=== PATIENT | male | born 1970 | race African-American/Black ===

== ENCOUNTER 2016-10-06 18:14 | Inpatient (IN) | payer MEDICAID ==
[~2016-10-06] VITALS: Ht 170.2 cm; Wt 78.0 kg
[~2016-10-06 18:14] MED LIST: ASPI-1158 PO; ATOR20TA PO; CLON1PAT8 TD; HYDR-4135 PO; NIFE60TA8 PO
[2016-10-06 18:39] LABS: BASOPHILS % 0.9 % (0.0-2.0); EOSINOPHILS % 2.6 % (0.0-5.0); HEMATOCRIT. 30.1 % (42.0-52.0); HEMOGLOBIN. 9.9 g/dL (14.0-18.0); LYMPHOCYTES % 16.2 % (20.0-50.0); MEAN CORPUSCULAR HEMOGLOBIN 28.5 pg (28.0-32.0); MEAN CORPUSCULAR VOLUME 86.3 fL (80.0-94.0); MONOCYTES % 10.7 % (2.0-8.0); NEUTROPHILS % 69.6 % (40.0-76.0); PLATELET 188 x1000/uL (130-400); RED BLOOD CELL COUNT 3.49 mill/uL (4.7-6.1); RED CELL DISTRIBUTION WIDTH 18.1 % (11.6-14.6)
[2016-10-06 18:50] LABS: INR 1.1; PROTHROMBIN TIME 11.2 sec
[2016-10-06 18:58] LABS: CARBON DIOXIDE 22 mEq/L (21-32); CHLORIDE 108 mEq/L (98-107)
[2016-10-06 19:02] LABS: TROPONIN I 0.23 ng/mL (0.00-0.04)
[2016-10-06 22:15] VITALS: BP 211/143
[2016-10-06 22:30] VITALS: BP 211/143
[2016-10-06] MEDS ORDERED: HYDRALAZINE 20MG/ML VIAL IV ONE (22:45)
[2016-10-06] MEDS ORDERED: ONDANSETRON HCL 4MG/2ML VIAL IV PRN (23:00)
[2016-10-06] MEDS ORDERED: HYDRALAZINE 20MG/ML VIAL IV PRN (23:00)
[2016-10-06] MEDS ORDERED: MAGNESIUM/ALUMINUM HYDROXIDE/SIMETHICONE 30ML UDC PO PRN (23:00)
[2016-10-06] MEDS ORDERED: HYDROCODONE/ACETAMINOPHEN 5/325MG TABLET PO PRN (23:00)
[2016-10-06] MEDS ORDERED: CLONIDINE 0.1MG TABLET PO PRN (23:00)
[2016-10-06] MEDS ORDERED: ACETAMINOPHEN 325MG TABLET PO PRN (23:00)
[2016-10-06] MEDS ORDERED: IPRATROPIUM/ALBUTEROL 0.5-3(2.5)MG/3ML NEB INH PRN (23:00)
[2016-10-07] VITALS: BP 174/116
[2016-10-07] MEDS ORDERED: RENAGEL PO (00:16)
[2016-10-07] MEDS ORDERED: CLON0.3T PO (00:16)
[2016-10-07 01:00] LABS: CARBON DIOXIDE 19 mEq/L (21-32); CHLORIDE 111 mEq/L (98-107)
[2016-10-07] MEDS: CLONIDINE 0.3MG TABLET PO SCH ×3 (01:03→18:24)
[2016-10-07] MEDS ORDERED: CLONIDINE HCL 0.3MG/24HR PATCH TD SCH (02:00)
[2016-10-07 02:21] LABS: *AMPHETAMINES SCREEN URINE NEGATIVE (NEGATIVE); *BARBITURATES SCREEN URINE NEGATIVE (NEGATIVE); *BENZODIAZEPINES SCREEN URINE NEGATIVE (NEGATIVE); *COCAINE SCREEN URINE PRESUMTIVE POSITIVE (NEGATIVE); CANNABINOID URINE SCREEN NEGATIVE (NEGATIVE); METHADONE URINE SCREEN NEGATIVE (NEGATIVE); OPIATES URINE SCREEN NEGATIVE (NEGATIVE); PHENCYCLIDINE URINE SCREEN PRESUMTIVE POSITIVE (NEGATIVE)
[2016-10-07 04:00] VITALS: BP 167/125
[2016-10-07 06:38] LABS: EOSINOPHILS % 3.2 % (0.0-5.0); HEMATOCRIT. 27.9 % (42.0-52.0); HEMOGLOBIN. 9.1 g/dL (14.0-18.0); LYMPHOCYTES % 18.9 % (20.0-50.0); MEAN CORPUSCULAR HEMOGLOBIN 28.4 pg (28.0-32.0); MEAN CORPUSCULAR VOLUME 86.8 fL (80.0-94.0); MEAN PLATELET VOLUME 8.4 fl (7.4-10.4); MONOCYTES % 10.3 % (2.0-8.0); NEUTROPHILS % 66.6 % (40.0-76.0); PLATELET 156 x1000/uL (130-400); RED BLOOD CELL COUNT 3.22 mill/uL (4.7-6.1); RED CELL DISTRIBUTION WIDTH 17.8 % (11.6-14.6)
[2016-10-07 07:09] LABS: CREATINE KINASE MB FRACTION 1.6 ng/mL (0.5-3.6); TROPONIN I 0.15 ng/mL (0.00-0.04)
[2016-10-07 08:00] VITALS: BP 166/122
[2016-10-07] MEDS: SEVELAMER CARBONATE 800 MG TABLET PO SCH ×3 (08:19→18:24)
[2016-10-07] MEDS: NIFEDIPINE XL 60MG TAB PO SCH ×2 (08:19→22:49)
[2016-10-07] MEDS: ASPIRIN 81MG EC TABLET PO SCH (08:19)
[2016-10-07] MEDS: ATORVASTATIN CALCIUM 20MG TABLET PO SCH (08:19)
[2016-10-07] MEDS: HYDRALAZINE HCL 50MG TABLET PO SCH ×3 (08:20→18:24)
[2016-10-07 12:00] VITALS: BP 126/92
[2016-10-07] MEDS ORDERED: HEPARIN SODIUM 1,000 UNIT/1ML VIAL IV NR (15:30)
[2016-10-07 15:54] LABS: TROPONIN I 0.1 ng/mL (0.00-0.04)
[2016-10-07 15:55] LABS: CREATINE KINASE MB FRACTION 1.3 ng/mL (0.5-3.6)
[2016-10-07 16:00] VITALS: BP 166/88
[2016-10-07 20:00] VITALS: BP 135/87
[2016-10-08 04:00] VITALS: BP 141/102
[2016-10-08 08:00] VITALS: BP 137/106
[2016-10-08] MEDS: HYDRALAZINE HCL 50MG TABLET PO SCH (08:41)
[2016-10-08] MEDS: ATORVASTATIN CALCIUM 20MG TABLET PO SCH (08:42)
[2016-10-08] MEDS: NIFEDIPINE XL 60MG TAB PO SCH (08:42)
[2016-10-08] MEDS: ASPIRIN 81MG EC TABLET PO SCH (08:42)
[2016-10-08] MEDS: CLONIDINE 0.3MG TABLET PO SCH (08:42)
[2016-10-08] MEDS: SEVELAMER CARBONATE 800 MG TABLET PO SCH (08:43)
[2016-10-08 09:00] LABS: TOTAL IRON BINDING CAPACITY 229 ug/dL (250-450)
[2016-10-08 09:07] LABS: FOLIC ACID (FOLATE) SERUM 11.1 ng/mL (>5.38)
[2016-10-08 12:00] VITALS: BP 115/88
[2016-10-08 12:13] VITALS: BP 115/88
[2016-10-08 14:32] LABS: PROSTRATE SPECIFIC AG TOTAL 1.98 ng/mL (0.0-4.0)
[2016-10-13] MEDS ORDERED: CLONIDINE HCL 0.3MG/24HR PATCH TD SCH (07:00)
[2016-10-13 14:19] LABS: HGB A 97.8 % (94.0-98.0); HGB A2 2.2 % (0.7-3.1); HGB SOLUBILITY Negative (Negative)
== END 2016-10-08 13:15 | disposition home or self-care (01) | DRG 133 ==
LOC: ER 18:40 → 7WST 21:07 → ENRESERV 21:21
PROVIDERS: ADMIT Internal Medicine; ATTEND Internal Medicine
PROC: 5A1D00Z (ICD-10-PCS; principal; 2016-10-07)
DX: J96.20 Acute and chronic respiratory failure, unspecified whether with hypoxia or hypercapnia (principal); I50.33 Acute on chronic diastolic (congestive) heart failure; N18.6 End stage renal disease; N39.0 Urinary tract infection, site not specified; I13.2 Hypertensive heart and chronic kidney disease with heart failure and with stage 5 chronic kidney disease, or end stage renal disease; E78.00 Pure hypercholesterolemia, unspecified; E78.5 Hyperlipidemia, unspecified; Z99.2 Dependence on renal dialysis; E66.9 Obesity, unspecified; F19.10 Other psychoactive substance abuse, uncomplicated; D63.1 Anemia in chronic kidney disease; F17.210 Nicotine dependence, cigarettes, uncomplicated; Z59.0 Homelessness; Z79.82 Long term (current) use of aspirin; Z79.899 Other long term (current) drug therapy; Z82.49 Family history of ischemic heart disease and other diseases of the circulatory system; Z80.9 Family history of malignant neoplasm, unspecified; Z91.19 Patient's noncompliance with other medical treatment and regimen; Z68.26 Body mass index [BMI] 26.0-26.9, adult
CPT/HCPCS: 36415; 71010; 80048; 80053; 80061; 80305; 82550; 82553; 82607; 82728; 82746; 83021; 83540; 83550; 83880; 84153; 84443; 84484; 85025; 85044; 85610; 85660; 87040; 93005; 93970; 99285; J0360; J1644

== ENCOUNTER 2016-11-10 23:13 | Emergency (ER) | payer MEDICAID ==
[~2016-11-10] VITALS: Ht 170.2 cm; Wt 88.0 kg
[~2016-11-10 23:13] MED LIST changes: +CLON0.3T PO; +RENAGEL PO
[2016-11-10] MEDS ORDERED: LABETALOL HCL 100MG TABLET PO ONE (23:45)
[2016-11-10] MEDS ORDERED: HYDRALAZINE HCL 10MG TABLET PO ONE (23:45)
[2016-11-11 02:05] VITALS: BP 164/80
== END 2016-11-11 02:05 | disposition home or self-care (01) ==
LOC: ER 23:26
DX: I16.0 Hypertensive urgency (principal); Z91.14 Patient's other noncompliance with medication regimen; Z99.2 Dependence on renal dialysis; Z79.82 Long term (current) use of aspirin
CPT/HCPCS: 93005; 99291; Z7610

== ENCOUNTER 2016-11-18 12:26 | Emergency (ER) | payer MEDICAID ==
[~2016-11-18] VITALS: Ht 172.7 cm; Wt 85.0 kg
[2016-11-18 13:44] LABS: HEMOGLOBIN. 9.7 g/dL (14.0-18.0); MEAN CORPUSCULAR HEMOGLOBIN 26.8 pg (28.0-32.0); MEAN CORPUSCULAR VOLUME 82.7 fL (80.0-94.0); PLATELET 179 x1000/uL (130-400); RED BLOOD CELL COUNT 3.63 mill/uL (4.7-6.1); RED CELL DISTRIBUTION WIDTH 16.5 % (11.6-14.6)
[2016-11-18 13:51] LABS: PROTHROMBIN TIME 10.9 sec (9.4-11.6)
[2016-11-18 14:01] LABS: CARBON DIOXIDE 27 mEq/L (21-32); CHLORIDE 99 mEq/L (98-107); TROPONIN I 0.03 ng/mL (0.00-0.04)
[2016-11-18 14:05] LABS: PLATELET ESTIMATE NORMAL
[2016-11-18] MEDS ORDERED: VANCOMYCIN 1 G PREMIX 200 ML IV SCH (14:45)
[2016-11-18 15:45] VITALS: BP 146/80
== END 2016-11-18 17:01 | disposition home or self-care (01) ==
LOC: ER 12:26
DX: R07.9 Chest pain, unspecified (principal); N18.6 End stage renal disease; I12.0 Hypertensive chronic kidney disease with stage 5 chronic kidney disease or end stage renal disease; Z99.2 Dependence on renal dialysis; Z79.82 Long term (current) use of aspirin
CPT/HCPCS: 36415; 71010; 80053; 83605; 84484; 85025; 85610; 87040; 93005; 96365; 96366; 99285; J3370; Z7610

== ENCOUNTER 2016-12-08 12:12 | Inpatient (IN) | payer MEDICAID ==
[~2016-12-08] VITALS: Ht 170.2 cm; Wt 73.9 kg
[2016-12-08 13:31] LABS: BASOPHILS % 1.4 % (0.0-2.0); EOSINOPHILS % 2.8 % (0.0-5.0); HEMATOCRIT. 33.9 % (42.0-52.0); HEMOGLOBIN. 11.1 g/dL (14.0-18.0); LYMPHOCYTES % 16.4 % (20.0-50.0); MEAN CORPUSCULAR HEMOGLOBIN 26.6 pg (28.0-32.0); MEAN PLATELET VOLUME 7.3 fl (7.4-10.4); MONOCYTES % 12.6 % (2.0-8.0); NEUTROPHILS % 66.8 % (40.0-76.0); PLATELET 251 x1000/uL (130-400); RED BLOOD CELL COUNT 4.18 mill/uL (4.7-6.1); RED CELL DISTRIBUTION WIDTH 16.7 % (11.6-14.6)
[2016-12-08 13:38] LABS: INR 1.1; PARTIAL THROMBOPLASTIN TIME 26.1 sec (23.4-31.0); PROTHROMBIN TIME 11.4 sec (9.4-11.6)
[2016-12-08] MEDS ORDERED: DOCUSATE SODIUM 100MG CAPSULE PO PRN (20:15)
[2016-12-08] MEDS ORDERED: ONDANSETRON HCL 4MG/2ML VIAL IV PRN (20:15)
[2016-12-08] MEDS: SODIUM CHLORIDE 0.9% INJ 3ML FLUSH IVF SCH (22:00)
[2016-12-08 22:46] LABS: BASOPHILS % 1.4 % (0.0-2.0); EOSINOPHILS % 2.9 % (0.0-5.0); HEMATOCRIT. 33.9 % (42.0-52.0); HEMOGLOBIN. 10.8 g/dL (14.0-18.0); LYMPHOCYTES % 19.1 % (20.0-50.0); MEAN CORPUSCULAR HEMOGLOBIN 26.1 pg (28.0-32.0); MEAN CORPUSCULAR VOLUME 81.8 fL (80.0-94.0); MEAN PLATELET VOLUME 7.6 fl (7.4-10.4); MONOCYTES % 12.8 % (2.0-8.0); NEUTROPHILS % 63.8 % (40.0-76.0); PLATELET 234 x1000/uL (130-400); RED BLOOD CELL COUNT 4.14 mill/uL (4.7-6.1); RED CELL DISTRIBUTION WIDTH 16.8 % (11.6-14.6)
[2016-12-08 23:01] LABS: TROPONIN I 0.04 ng/mL (0.00-0.04)
[2016-12-08 23:02] LABS: CREATINE KINASE MB FRACTION 0.8 ng/mL (0.5-3.6)
[2016-12-09] VITALS (7 sets, daily range): BP systolic 123–168; BP diastolic 76–109
[2016-12-09] MEDS ORDERED: AMLO10TA80 PO (03:43)
[2016-12-09] MEDS ORDERED: LISI10TA5 PO (03:43)
[2016-12-09] MEDS ORDERED: FURO80TA3 PO (03:43)
[2016-12-09] MEDS ORDERED: MINO2.5T19 PO (03:43)
[2016-12-09 07:11] LABS: CLARITY URINE CLEAR (CLEAR); COLOR URINE YELLOW (YELLOW); GLUCOSE URINE NEGATIVE (NEGATIVE); KETONES URINE NEGATIVE (NEGATIVE); LEUKOCYTE ESTERASE URINE TRACE (NEGATIVE); NITRITE URINE NEGATIVE (NEGATIVE); OCCULT BLOOD URINE TRACE (NEGATIVE); PROTEIN URINE 3+ (NEGATIVE); SPECIFIC GRAVITY URINE 1.015 (1.005-1.030); UROBILINOGEN URINE 0.2 E.U./dL (0.2-1.0)
[2016-12-09 07:28] LABS: *AMPHETAMINES SCREEN URINE NEGATIVE (NEGATIVE); *BARBITURATES SCREEN URINE NEGATIVE (NEGATIVE); *BENZODIAZEPINES SCREEN URINE NEGATIVE (NEGATIVE); *COCAINE SCREEN URINE PRESUMTIVE POSITIVE (NEGATIVE); CANNABINOID URINE SCREEN NEGATIVE (NEGATIVE); METHADONE URINE SCREEN NEGATIVE (NEGATIVE); OPIATES URINE SCREEN NEGATIVE (NEGATIVE); PHENCYCLIDINE URINE SCREEN PRESUMTIVE POSITIVE (NEGATIVE)
[2016-12-09 08:12] LABS: CARBON DIOXIDE 24 mEq/L (21-32); CHLORIDE 101 mEq/L (98-107); CREATINE KINASE 203 IU/L (39-308); HDL CHOLESTEROL 64 mg/dL (40-59); LDL CHOLESTEROL 142 mg/dL (5-100)
[2016-12-09 08:24] LABS: CREATINE KINASE MB FRACTION 0.7 ng/mL (0.5-3.6); TROPONIN I 0.04 ng/mL (0.00-0.04)
[2016-12-09] MEDS: SODIUM CHLORIDE 0.9% INJ 3ML FLUSH IVF SCH ×2 (08:30→20:57)
[2016-12-09] MEDS ORDERED: LORAZEPAM 2MG/ML CPJ IV PRN (09:15)
[2016-12-09] MEDS ORDERED: DIPHENHYDRAMINE 50MG/ML VIAL IV PRN (10:00)
[2016-12-09] MEDS: AMLODIPINE 10MG TABLET PO SCH (12:00)
[2016-12-09] MEDS: HYDROCODONE/ACETAMINOPHEN 5/325MG TABLET PO PRN ×2 (12:12→20:53)
[2016-12-09] MEDS ORDERED: MAGNESIUM/ALUMINUM HYDROXIDE/SIMETHICONE 30ML UDC PO PRN (12:15)
[2016-12-09] MEDS: SEVELAMER CARBONATE 800 MG TABLET PO SCH ×2 (12:34→17:04)
[2016-12-09] MEDS: FUROSEMIDE 80MG TABLET PO SCH (17:04)
[2016-12-09] MEDS: CEFTRIAXONE 1 G PREMIX 50 ML IV SCH (18:04)
[2016-12-09] MEDS: AZITHROMYCIN 500 MG in DEXT 5% WATER 250 ML IV SCH (18:05)
[2016-12-09] MEDS: ATORVASTATIN CALCIUM 20MG TABLET PO SCH (20:46)
[2016-12-09] MEDS: LISINOPRIL 10MG TABLET PO SCH (20:47)
[2016-12-10 00:31] VITALS: BP 158/85
[2016-12-10 04:00] VITALS: BP 171/86
[2016-12-10] MEDS: FUROSEMIDE 80MG TABLET PO SCH ×2 (07:00→16:48)
[2016-12-10] MEDS: SODIUM CHLORIDE 0.9% INJ 3ML FLUSH IVF SCH ×3 (07:00→21:34)
[2016-12-10 07:02] LABS: BASOPHILS % 1.2 % (0.0-2.0); EOSINOPHILS % 3.5 % (0.0-5.0); HEMATOCRIT. 32.5 % (42.0-52.0); HEMOGLOBIN. 10.7 g/dL (14.0-18.0); LYMPHOCYTES % 22.4 % (20.0-50.0); MEAN CORPUSCULAR HEMOGLOBIN 26.9 pg (28.0-32.0); MEAN CORPUSCULAR VOLUME 81.4 fL (80.0-94.0); MEAN PLATELET VOLUME 7.6 fl (7.4-10.4); MONOCYTES % 12.6 % (2.0-8.0); NEUTROPHILS % 60.3 % (40.0-76.0); PLATELET 213 x1000/uL (130-400); RED BLOOD CELL COUNT 3.99 mill/uL (4.7-6.1); RED CELL DISTRIBUTION WIDTH 16.8 % (11.6-14.6)
[2016-12-10] MEDS: SEVELAMER CARBONATE 800 MG TABLET PO SCH ×3 (07:34→16:49)
[2016-12-10 08:00] VITALS: BP 162/99
[2016-12-10] MEDS: LISINOPRIL 10MG TABLET PO SCH (08:23)
[2016-12-10] MEDS: AMLODIPINE 10MG TABLET PO SCH (08:23)
[2016-12-10] MEDS: METOPROLOL TARTRATE 25MG TABLET PO SCH ×2 (11:25→21:27)
[2016-12-10 12:00] VITALS: BP 159/106
[2016-12-10] MEDS: HYDROCODONE/ACETAMINOPHEN 5/325MG TABLET PO PRN (15:08)
[2016-12-10 16:00] VITALS: BP 161/102
[2016-12-10] MEDS: CEFTRIAXONE 1 G PREMIX 50 ML IV SCH (17:06)
[2016-12-10] MEDS: AZITHROMYCIN 500 MG in DEXT 5% WATER 250 ML IV SCH (17:57)
[2016-12-10 20:00] VITALS: BP 180/81
[2016-12-10] MEDS: LISINOPRIL 20MG TABLET PO SCH (21:26)
[2016-12-10] MEDS: ATORVASTATIN CALCIUM 20MG TABLET PO SCH (21:26)
[2016-12-10] MEDS: HYDROCODONE/ACETAMINOPHEN 10/325MG TABLET PO PRN (21:28)
[2016-12-11] VITALS: BP 206/115
[2016-12-11] MEDS ORDERED: DIPHENHYDRAMINE 50MG/ML VIAL IV PRN (00:45)
[2016-12-11] MEDS: SODIUM CHLORIDE 0.9% INJ 3ML FLUSH IVF SCH ×2 (01:48→13:55)
[2016-12-11 04:00] VITALS: BP 186/81
[2016-12-11 08:00] VITALS: BP 172/102
[2016-12-11] MEDS: SEVELAMER CARBONATE 800 MG TABLET PO SCH ×2 (09:22→13:54)
[2016-12-11] MEDS: LISINOPRIL 20MG TABLET PO SCH (09:22)
[2016-12-11] MEDS: AMLODIPINE 10MG TABLET PO SCH (09:22)
[2016-12-11] MEDS: FUROSEMIDE 80MG TABLET PO SCH (09:23)
[2016-12-11] MEDS: METOPROLOL TARTRATE 25MG TABLET PO SCH (09:23)
[2016-12-11] MEDS: HYDROCODONE/ACETAMINOPHEN 10/325MG TABLET PO PRN (09:24)
[2016-12-11 12:00] VITALS: BP 169/115
[2016-12-11] MEDS ORDERED: MINOXIDIL 2.5MG TABLET PO SCH (13:30)
[2016-12-11] MEDS ORDERED: DILTIAZEM HCL 180MG CAPSULE CD 24HR PO SCH (13:30)
[2016-12-11] MEDS ORDERED: CLONIDINE 0.1MG TABLET PO SCH (14:00)
[2016-12-11 15:12] VITALS: BP 169/115
[2016-12-11] MEDS ORDERED: DILTIAZEM HCL 60MG TABLET PO SCH (18:00)
[2016-12-11] MEDS ORDERED: METOPROLOL TARTRATE 50MG TABLET PO SCH (21:00)
== END 2016-12-11 15:10 | disposition home or self-care (01) | DRG 194 ==
LOC: ER 12:19 → 7WST 16:10 → ENRESERV 12-09 00:09
PROVIDERS: ADMIT Internal Medicine; ATTEND Internal Medicine
PROC: 5A1D60Z (ICD-10-PCS; principal; 2016-12-09)
DX: I13.2 Hypertensive heart and chronic kidney disease with heart failure and with stage 5 chronic kidney disease, or end stage renal disease (principal); N18.6 End stage renal disease; Z99.2 Dependence on renal dialysis; E78.00 Pure hypercholesterolemia, unspecified; E78.5 Hyperlipidemia, unspecified; I50.33 Acute on chronic diastolic (congestive) heart failure; F19.10 Other psychoactive substance abuse, uncomplicated; F17.210 Nicotine dependence, cigarettes, uncomplicated; Z79.899 Other long term (current) drug therapy; Z79.82 Long term (current) use of aspirin; Z91.19 Patient's noncompliance with other medical treatment and regimen; Z72.89 Other problems related to lifestyle; D63.8 Anemia in other chronic diseases classified elsewhere
CPT/HCPCS: 36415; 71010; 80048; 80053; 80061; 80305; 81001; 82040; 82550; 82553; 83735; 83880; 84443; 84484; 85025; 85610; 85730; 87040; 87086; 93005; 93306; 99285; J0456; J0696; J1200; J2060; J2405; J7040; J7060

== ENCOUNTER 2016-12-25 04:01 | Inpatient (IN) | payer MEDICAID ==
[~2016-12-25] VITALS: Ht 170.2 cm; Wt 79.2 kg
[~2016-12-25 04:01] MED LIST changes: +AMLO10TA80 PO; -ASPI-1158 PO; -ATOR20TA PO; -CLON0.3T PO; -CLON1PAT8 TD; +FURO80TA3 PO; -HYDR-4135 PO; +LISI10TA5 PO; +MINO2.5T19 PO; -NIFE60TA8 PO
[2016-12-25 06:15] LABS: BASOPHILS % 0.9 % (0.0-2.0); EOSINOPHILS % 2.9 % (0.0-5.0); HEMATOCRIT. 33.2 % (42.0-52.0); LYMPHOCYTES % 20.3 % (20.0-50.0); MEAN CORPUSCULAR HEMOGLOBIN 26.5 pg (28.0-32.0); MEAN CORPUSCULAR VOLUME 79.8 fL (80.0-94.0); MEAN PLATELET VOLUME 7.7 fl (7.4-10.4); MONOCYTES % 14.7 % (2.0-8.0); NEUTROPHILS % 61.2 % (40.0-76.0); PLATELET 181 x1000/uL (130-400); RED BLOOD CELL COUNT 4.16 mill/uL (4.7-6.1); RED CELL DISTRIBUTION WIDTH 16.4 % (11.6-14.6)
[2016-12-25 06:22] LABS: INR 1.1; PROTHROMBIN TIME 11.3 sec (9.4-11.6)
[2016-12-25 06:31] LABS: CARBON DIOXIDE 30 mEq/L (21-32); CHLORIDE 101 mEq/L (98-107); TROPONIN I 0.04 ng/mL (0.00-0.04)
[2016-12-25 09:00] VITALS: BP 158/96
[2016-12-25] MEDS ORDERED: DOCUSATE SODIUM 100MG CAPSULE PO PRN (09:45)
[2016-12-25] MEDS ORDERED: ONDANSETRON HCL 4MG/2ML VIAL IV PRN (09:45)
[2016-12-25] MEDS ORDERED: TRAMADOL 50MG TABLET PO PRN (09:45)
[2016-12-25] MEDS ORDERED: ACETAMINOPHEN 325MG TABLET PO PRN (09:45)
[2016-12-25] MEDS ORDERED: CLONIDINE 0.1MG TABLET PO PRN (09:45)
[2016-12-25] MEDS ORDERED: LORAZEPAM 2MG/ML CPJ IV PRN (09:45)
[2016-12-25] MEDS ORDERED: MAGNESIUM/ALUMINUM HYDROXIDE/SIMETHICONE 30ML UDC PO PRN (09:45)
[2016-12-25] MEDS ORDERED: IPRATROPIUM/ALBUTEROL 0.5-3(2.5)MG/3ML NEB INH PRN (09:45)
[2016-12-25] MEDS ORDERED: GUAIFENESIN 200MG/10ML SUGAR FREE UDC PO PRN (09:45)
[2016-12-25] MEDS ORDERED: AMLODIPINE 10MG TABLET PO SCH (09:45)
[2016-12-25] MEDS ORDERED: NITROGLYCERIN 0.4MG TABLET SL SL PRN (09:45)
[2016-12-25] MEDS: ASPIRIN 325MG EC TABLET PO SCH (10:35)
[2016-12-25 11:30] VITALS: BP 158/96
[2016-12-25 12:00] VITALS: BP 170/121
[2016-12-25] MEDS: DIPHENHYDRAMINE 50MG/ML VIAL IV PRN ×2 (12:39→21:38)
[2016-12-25] MEDS: FAMOTIDINE 20MG/2ML VIAL IV SCH (12:39)
[2016-12-25] MEDS: ENOXAPARIN 30MG/0.3ML SYR SUBCUT SCH (12:48)
[2016-12-25] MEDS: SEVELAMER CARBONATE 800 MG TABLET PO SCH ×2 (14:28→18:16)
[2016-12-25 15:51] VITALS: BP 131/77
[2016-12-25 17:19] LABS: TROPONIN I 0.04 ng/mL (0.00-0.04)
[2016-12-25] MEDS: HYDROCODONE/ACETAMINOPHEN 10/325MG TABLET PO PRN (18:16)
[2016-12-25] MEDS: FUROSEMIDE 80MG TABLET PO SCH (18:17)
[2016-12-25 20:00] VITALS: BP 150/101
[2016-12-25] MEDS: LEVETIRACETAM 500MG TABLET PO SCH (21:37)
[2016-12-25] MEDS: HYDRALAZINE HCL 50MG TABLET PO SCH (21:37)
[2016-12-25] MEDS: LISINOPRIL 10MG TABLET PO SCH (21:37)
[2016-12-25] MEDS: MINOXIDIL 10MG TABLET PO SCH (21:38)
[2016-12-25] MEDS: LABETALOL HCL 200MG TABLET PO SCH (21:38)
[2016-12-26] VITALS: BP 118/65
[2016-12-26 00:28] LABS: TROPONIN I 0.04 ng/mL (0.00-0.04)
[2016-12-26 04:00] VITALS: BP 118/71
[2016-12-26] MEDS: HYDRALAZINE HCL 50MG TABLET PO SCH ×2 (05:53→14:00)
[2016-12-26] MEDS: LABETALOL HCL 200MG TABLET PO SCH ×2 (05:54→14:00)
[2016-12-26 07:43] LABS: HEMATOCRIT. 31.9 % (42.0-52.0); HEMOGLOBIN. 10.6 g/dL (14.0-18.0); MEAN CORPUSCULAR HEMOGLOBIN 26.6 pg (28.0-32.0); MEAN CORPUSCULAR VOLUME 80.4 fL (80.0-94.0); MEAN PLATELET VOLUME 7.5 fl (7.4-10.4); PLATELET 152 x1000/uL (130-400); RED BLOOD CELL COUNT 3.97 mill/uL (4.7-6.1); RED CELL DISTRIBUTION WIDTH 16.4 % (11.6-14.6)
[2016-12-26 08:00] VITALS: BP 106/56
[2016-12-26] MEDS: LISINOPRIL 10MG TABLET PO SCH (09:00)
[2016-12-26] MEDS ORDERED: FOLIC ACID/VITAMIN B COMP W-C TABLET PO SCH (09:00)
[2016-12-26] MEDS: MINOXIDIL 10MG TABLET PO SCH (09:00)
[2016-12-26] MEDS: FAMOTIDINE 20MG/2ML VIAL IV SCH (09:19)
[2016-12-26] MEDS: LEVETIRACETAM 500MG TABLET PO SCH (09:19)
[2016-12-26] MEDS: SEVELAMER CARBONATE 800 MG TABLET PO SCH ×2 (09:19→12:50)
[2016-12-26] MEDS: ASPIRIN 325MG EC TABLET PO SCH ×2 (09:20→09:23)
[2016-12-26] MEDS: FUROSEMIDE 80MG TABLET PO SCH (09:20)
[2016-12-26] MEDS: HYDROCODONE/ACETAMINOPHEN 10/325MG TABLET PO PRN (09:20)
[2016-12-26] MEDS: ENOXAPARIN 30MG/0.3ML SYR SUBCUT SCH (09:23)
[2016-12-26] MEDS: DIPHENHYDRAMINE 50MG/ML VIAL IV PRN (11:12)
[2016-12-26 17:34] VITALS: BP 115/72
[2016-12-26] MEDS ORDERED: ATORVASTATIN CALCIUM 10MG TABLET PO SCH (21:00)
[2016-12-26 22:09] LABS: PLATELET ESTIMATE NORMAL
== END 2016-12-26 18:10 | disposition home or self-care (01) | DRG 53 ==
LOC: ER 04:19 → 6WST 06:04 → EDBEDREQ 06:14 → ENRESERV 07:06 → 6WST 12-26 10:10
PROVIDERS: ADMIT Internal Medicine; ATTEND Internal Medicine
PROC: 5A1D00Z (ICD-10-PCS; principal; 2016-12-26)
DX: R56.9 Unspecified convulsions (principal); N18.6 End stage renal disease; I12.0 Hypertensive chronic kidney disease with stage 5 chronic kidney disease or end stage renal disease; D63.8 Anemia in other chronic diseases classified elsewhere; E78.5 Hyperlipidemia, unspecified; E78.00 Pure hypercholesterolemia, unspecified; F17.210 Nicotine dependence, cigarettes, uncomplicated; Z86.73 Personal history of transient ischemic attack (TIA), and cerebral infarction without residual deficits; Z99.2 Dependence on renal dialysis
CPT/HCPCS: 36415; 70450; 70551; 71010; 80048; 80053; 80061; 82550; 82553; 83036; 83605; 84484; 85025; 85610; 87040; 93005; 93970; 99285; J1200; J1650; J3490; J7030

== ENCOUNTER 2017-01-04 10:29 | Emergency (ER) | payer MEDICAID ==
[~2017-01-04] VITALS: Ht 175.3 cm; Wt 76.0 kg
[~2017-01-04 10:29] MED LIST changes: -LISI10TA5 PO
[2017-01-04] MEDS ORDERED: CLONIDINE 0.2MG TABLET PO ONE (11:15)
[2017-01-04] MEDS ORDERED: LEVETIRACETAM 500MG PREMIX 100 ML IV ONE (11:15)
[2017-01-04 11:39] LABS: BASOPHILS % 0.9 % (0.0-2.0); HEMOGLOBIN. 11.2 g/dL (14.0-18.0); LYMPHOCYTES % 13.1 % (20.0-50.0); MEAN CORPUSCULAR HEMOGLOBIN 26.5 pg (28.0-32.0); MEAN CORPUSCULAR VOLUME 80.9 fL (80.0-94.0); MEAN PLATELET VOLUME 7.3 fl (7.4-10.4); PLATELET 189 x1000/uL (130-400); RED BLOOD CELL COUNT 4.21 mill/uL (4.7-6.1); RED CELL DISTRIBUTION WIDTH 17.2 % (11.6-14.6)
[2017-01-04 11:43] LABS: INR 1.1; PARTIAL THROMBOPLASTIN TIME 26.8 sec (23.4-31.0); PROTHROMBIN TIME 11.7 sec (9.4-11.6)
[2017-01-04 11:51] LABS: CARBON DIOXIDE 28 mEq/L (21-32); CHLORIDE 106 mEq/L (98-107)
[2017-01-04 16:20] VITALS: BP 150/95
== END 2017-01-04 17:02 | disposition home or self-care (01) ==
LOC: ER 11:14
DX: I12.0 Hypertensive chronic kidney disease with stage 5 chronic kidney disease or end stage renal disease (principal); N18.6 End stage renal disease; G40.909 Epilepsy, unspecified, not intractable, without status epilepticus; Z99.2 Dependence on renal dialysis
CPT/HCPCS: 36415; 80053; 83880; 84443; 85025; 85610; 85730; 93005; 96365; 99285; J1953; Z7610

== ENCOUNTER 2017-01-23 16:22 | Inpatient (IN) | payer MEDICAID ==
[~2017-01-23] VITALS: Ht 172.7 cm; Wt 79.9 kg
[2017-01-23] MEDS ORDERED: SODIUM CHLORIDE 0.9% 1,000 ML IV ONE (16:47)
[2017-01-23] MEDS ORDERED: PIPERACILLIN/TAZ 3.375G PREMIX 50 ML IV ONE (17:00)
[2017-01-23] MEDS ORDERED: VANCOMYCIN 1 G PREMIX 200 ML IV ONE (17:00)
[2017-01-23 17:24] LABS: INR 1.1; PROTHROMBIN TIME 11.2 sec (9.4-11.6)
[2017-01-23 17:27] LABS: CARBON DIOXIDE 31 mEq/L (21-32); CHLORIDE 97 mEq/L (98-107)
[2017-01-23 17:31] LABS: BASOPHILS % 0.8 % (0.0-2.0); EOSINOPHILS % 1.7 % (0.0-5.0); HEMATOCRIT. 30.3 % (42.0-52.0); HEMOGLOBIN. 9.8 g/dL (14.0-18.0); LYMPHOCYTES % 13.8 % (20.0-50.0); MEAN CORPUSCULAR HEMOGLOBIN 25.8 pg (28.0-32.0); MEAN CORPUSCULAR VOLUME 79.5 fL (80.0-94.0); MEAN PLATELET VOLUME 7.9 fl (7.4-10.4); MONOCYTES % 14.8 % (2.0-8.0); NEUTROPHILS % 68.9 % (40.0-76.0); PLATELET 196 x1000/uL (130-400); RED BLOOD CELL COUNT 3.81 mill/uL (4.7-6.1); RED CELL DISTRIBUTION WIDTH 16.5 % (11.6-14.6)
[2017-01-23 17:34] LABS: TROPONIN I 0.03 ng/mL (0.00-0.04)
[2017-01-23] MEDS ORDERED: SODIUM CHLORIDE 0.9% 250 ML IV ONE (19:31)
[2017-01-23] MEDS ORDERED: GLUCAGON,HUMAN RECOMBINANT 1MG/VIAL IV ONE (20:45)
[2017-01-23] MEDS ORDERED: ACETAMINOPHEN 325MG TABLET PO PRN (21:15)
[2017-01-23] MEDS ORDERED: PIPERACILLIN/TAZ 3.375G PREMIX 50 ML IV SCH (21:15)
[2017-01-23] MEDS ORDERED: MAGNESIUM/ALUMINUM HYDROXIDE/SIMETHICONE 30ML UDC PO PRN (21:15)
[2017-01-23] MEDS ORDERED: ONDANSETRON HCL 4MG/2ML VIAL IV PRN (21:15)
[2017-01-23] MEDS ORDERED: IPRATROPIUM/ALBUTEROL 0.5-3(2.5)MG/3ML NEB INH PRN (21:15)
[2017-01-23] MEDS ORDERED: CLONIDINE 0.1MG TABLET PO PRN (21:15)
[2017-01-23 22:39] LABS: CREATINE KINASE MB FRACTION 0.8 ng/mL (0.5-3.6); PHOSPHORUS 3.2 mg/dL (2.5-4.9); TROPONIN I 0.03 ng/mL (0.00-0.04)
[2017-01-23 23:00] VITALS: BP 91/58
[2017-01-23] MEDS ORDERED: FAMO20TA8 PO (23:39)
[2017-01-23] MEDS ORDERED: LABE100T PO (23:39)
[2017-01-23] MEDS ORDERED: HYDR-4135 PO (23:39)
[2017-01-23] MEDS ORDERED: CLON0.3T PO (23:39)
[2017-01-23] MEDS ORDERED: METO25TA6 PO (23:39)
[2017-01-23 23:48] VITALS: BP 89/55
[2017-01-23 23:52] VITALS: BP 108/71
[2017-01-24] VITALS (48 sets, daily range): BP systolic 73–130; BP diastolic 42–85
[2017-01-24] MEDS: LEVETIRACETAM 500MG TABLET PO SCH ×3 (00:07→17:39)
[2017-01-24] MEDS ORDERED: REN400 PO (00:18)
[2017-01-24] MEDS: PIPERACILLIN/TAZ 2.25G PREMIX 50 ML IV SCH ×3 (02:32→17:41)
[2017-01-24] MEDS ORDERED: LIP40 PO (03:23)
[2017-01-24] MEDS ORDERED: FOLI-43 PO (03:23)
[2017-01-24] MEDS ORDERED: HYDR-519 PO (03:23)
[2017-01-24] MEDS ORDERED: LISI10TA5 PO (03:23)
[2017-01-24] MEDS ORDERED: KEPP500 PO (03:23)
[2017-01-24] MEDS: HYDRALAZINE HCL 50MG TABLET PO SCH ×3 (05:24→20:56)
[2017-01-24 05:35] LABS: CREATINE KINASE 180 IU/L (39-308); CREATINE KINASE MB FRACTION < 0.5 ng/mL (0.5-3.6); TROPONIN I 0.03 ng/mL (0.00-0.04)
[2017-01-24 06:04] LABS: HEMATOCRIT. 26.5 % (42.0-52.0); HEMOGLOBIN. 8.7 g/dL (14.0-18.0); MEAN CORPUSCULAR HEMOGLOBIN 26.2 pg (28.0-32.0); MEAN CORPUSCULAR VOLUME 80.2 fL (80.0-94.0); MEAN PLATELET VOLUME 8.4 fl (7.4-10.4); PLATELET 172 x1000/uL (130-400); RED BLOOD CELL COUNT 3.31 mill/uL (4.7-6.1); RED CELL DISTRIBUTION WIDTH 16.9 % (11.6-14.6)
[2017-01-24] MEDS: FUROSEMIDE 80MG TABLET PO SCH ×2 (06:30→17:39)
[2017-01-24] MEDS: HYDROCODONE/ACETAMINOPHEN 10/325MG TABLET PO PRN (08:29)
[2017-01-24] MEDS: FOLIC ACID 1MG TABLET PO SCH (08:30)
[2017-01-24] MEDS: FAMOTIDINE 20MG TABLET PO SCH (08:30)
[2017-01-24] MEDS: LABETALOL HCL 100MG TABLET PO SCH ×2 (09:00→23:41)
[2017-01-24] MEDS: MINOXIDIL 2.5MG TABLET PO SCH ×2 (09:00→20:56)
[2017-01-24] MEDS ORDERED: FAMOTIDINE(NEO) 1MG/ML SUSP PO SCH (09:00)
[2017-01-24] MEDS: AMLODIPINE 10MG TABLET PO SCH (09:00)
[2017-01-24] MEDS ORDERED: VANCOMYCIN 500 MG PREMIX 100 ML IV SCH (10:00)
[2017-01-24 14:10] LABS: CLARITY URINE CLEAR (CLEAR); COLOR URINE YELLOW (YELLOW); GLUCOSE URINE NEGATIVE (NEGATIVE); KETONES URINE TRACE (NEGATIVE); LEUKOCYTE ESTERASE URINE TRACE (NEGATIVE); NITRITE URINE NEGATIVE (NEGATIVE); OCCULT BLOOD URINE NEGATIVE (NEGATIVE); PROTEIN URINE 3+ (NEGATIVE); SPECIFIC GRAVITY URINE 1.017 (1.005-1.030); UROBILINOGEN URINE 0.2 E.U./dL (0.2-1.0)
[2017-01-24 14:32] LABS: *AMPHETAMINES SCREEN URINE NEGATIVE (NEGATIVE); *BARBITURATES SCREEN URINE NEGATIVE (NEGATIVE); *BENZODIAZEPINES SCREEN URINE NEGATIVE (NEGATIVE); *COCAINE SCREEN URINE PRESUMTIVE POSITIVE (NEGATIVE); CANNABINOID URINE SCREEN NEGATIVE (NEGATIVE); METHADONE URINE SCREEN NEGATIVE (NEGATIVE); OPIATES URINE SCREEN NEGATIVE (NEGATIVE); PHENCYCLIDINE URINE SCREEN PRESUMTIVE POSITIVE (NEGATIVE)
[2017-01-24] MEDS: DIPHENHYDRAMINE 50MG/ML VIAL IM PRN ×2 (16:39→23:42)
[2017-01-24] MEDS: ATORVASTATIN CALCIUM 40MG TABLET PO SCH (17:38)
[2017-01-24 20:38] LABS: PLATELET ESTIMATE NORMAL
[2017-01-25] VITALS: BP 111/63
[2017-01-25 04:00] VITALS: BP 127/71
[2017-01-25 05:56] LABS: EOSINOPHILS % 2.8 % (0.0-5.0); HEMOGLOBIN. 9.5 g/dL (14.0-18.0); LYMPHOCYTES % 18.4 % (20.0-50.0); MEAN CORPUSCULAR HEMOGLOBIN 26.1 pg (28.0-32.0); MEAN CORPUSCULAR VOLUME 79.4 fL (80.0-94.0); MEAN PLATELET VOLUME 7.9 fl (7.4-10.4); MONOCYTES % 13.7 % (2.0-8.0); NEUTROPHILS % 64.1 % (40.0-76.0); PLATELET 188 x1000/uL (130-400); RED BLOOD CELL COUNT 3.65 mill/uL (4.7-6.1); RED CELL DISTRIBUTION WIDTH 16.6 % (11.6-14.6)
[2017-01-25] MEDS: PIPERACILLIN/TAZ 2.25G PREMIX 50 ML IV SCH ×3 (07:05→21:47)
[2017-01-25] MEDS: HYDRALAZINE HCL 50MG TABLET PO SCH ×3 (07:16→21:48)
[2017-01-25] MEDS: FUROSEMIDE 80MG TABLET PO SCH ×2 (07:18→16:40)
[2017-01-25 08:00] VITALS: BP 129/73
[2017-01-25] MEDS: FAMOTIDINE 20MG TABLET PO SCH (09:20)
[2017-01-25] MEDS: LEVETIRACETAM 500MG TABLET PO SCH ×2 (09:20→16:40)
[2017-01-25] MEDS: FOLIC ACID 1MG TABLET PO SCH (09:20)
[2017-01-25] MEDS: LABETALOL HCL 100MG TABLET PO SCH ×2 (09:21→20:27)
[2017-01-25] MEDS: MINOXIDIL 2.5MG TABLET PO SCH ×2 (09:21→20:27)
[2017-01-25] MEDS: AMLODIPINE 10MG TABLET PO SCH (09:22)
[2017-01-25 12:00] VITALS: BP 115/61
[2017-01-25] MEDS: DIPHENHYDRAMINE 50MG/ML VIAL IM PRN ×2 (15:51→21:48)
[2017-01-25] MEDS: HYDROCODONE/ACETAMINOPHEN 10/325MG TABLET PO PRN (15:51)
[2017-01-25 16:00] VITALS: BP 112/66
[2017-01-25] MEDS: ATORVASTATIN CALCIUM 40MG TABLET PO SCH (16:40)
[2017-01-25 20:00] VITALS: BP 137/83
[2017-01-26] VITALS: BP 101/54
[2017-01-26] MEDS: HYDROCODONE/ACETAMINOPHEN 10/325MG TABLET PO PRN (03:41)
[2017-01-26] MEDS: DIPHENHYDRAMINE 50MG/ML VIAL IM PRN ×3 (03:41→23:55)
[2017-01-26 04:00] VITALS: BP 114/63
[2017-01-26] MEDS: PIPERACILLIN/TAZ 2.25G PREMIX 50 ML IV SCH ×3 (05:49→23:54)
[2017-01-26] MEDS: HYDRALAZINE HCL 50MG TABLET PO SCH ×3 (05:49→21:51)
[2017-01-26] MEDS: FUROSEMIDE 80MG TABLET PO SCH ×2 (06:44→17:15)
[2017-01-26 08:00] VITALS: BP 101/50
[2017-01-26] MEDS: AMLODIPINE 10MG TABLET PO SCH (09:00)
[2017-01-26] MEDS: MINOXIDIL 2.5MG TABLET PO SCH ×2 (09:00→20:43)
[2017-01-26] MEDS: LEVETIRACETAM 500MG TABLET PO SCH ×2 (09:22→17:00)
[2017-01-26] MEDS: LABETALOL HCL 100MG TABLET PO SCH ×2 (09:22→20:43)
[2017-01-26] MEDS: FOLIC ACID 1MG TABLET PO SCH (09:22)
[2017-01-26] MEDS: FAMOTIDINE 20MG TABLET PO SCH (09:22)
[2017-01-26 12:00] VITALS: BP 134/84
[2017-01-26] MEDS ORDERED: EPOETIN ALFA 10000UNITS/ML VIAL SUBCUT NR (14:00)
[2017-01-26 16:00] VITALS: BP 117/71
[2017-01-26] MEDS: ATORVASTATIN CALCIUM 40MG TABLET PO SCH (17:00)
[2017-01-26 20:00] VITALS: BP 123/78
[2017-01-26] MEDS ORDERED: HEPARIN SODIUM 1,000 UNIT/1ML VIAL IV NR (20:30)
[2017-01-27] VITALS: BP 141/75
[2017-01-27 04:00] VITALS: BP 137/89
[2017-01-27 04:13] VITALS: BP 106/64
[2017-01-27] MEDS: PIPERACILLIN/TAZ 2.25G PREMIX 50 ML IV SCH (05:55)
[2017-01-27] MEDS: HYDRALAZINE HCL 50MG TABLET PO SCH (05:56)
[2017-01-27] MEDS: FUROSEMIDE 80MG TABLET PO SCH (06:56)
[2017-01-27 08:00] VITALS: BP 106/64
[2017-01-27] MEDS: FAMOTIDINE 20MG TABLET PO SCH (08:46)
[2017-01-27] MEDS: FOLIC ACID 1MG TABLET PO SCH (08:46)
[2017-01-27] MEDS: LEVETIRACETAM 500MG TABLET PO SCH (08:46)
[2017-01-27] MEDS: MINOXIDIL 2.5MG TABLET PO SCH (08:47)
[2017-01-27] MEDS: AMLODIPINE 10MG TABLET PO SCH (08:47)
[2017-01-27] MEDS: LABETALOL HCL 100MG TABLET PO SCH (08:48)
[2017-01-27 12:00] VITALS: BP 153/103
[2017-01-27] MEDS ORDERED: VANCOMYCIN 1 G PREMIX 200 ML IV NR (12:00)
== END 2017-01-27 12:20 | disposition home or self-care (01) | DRG 720 ==
LOC: ER 17:01 → EDBEDREQTM 20:24 → EDBEDREQ 20:24 → EDBEDREQTM 20:56 → EDBEDREQSVC 20:56 → MICUSO 21:02 → ENRESERV 21:13 → 6EST 01-24 14:55
PROVIDERS: ADMIT Internal Medicine; ATTEND Internal Medicine
PROC: 5A1D70Z Performance of Urinary Filtration, Intermittent, Less than 6 Hours Per Day (ICD-10-PCS; principal; 2017-01-23)
PROC: 5A1D70Z Performance of Urinary Filtration, Intermittent, Less than 6 Hours Per Day (ICD-10-PCS; 2017-01-26)
DX: A41.9 Sepsis, unspecified organism (principal); N18.6 End stage renal disease; I95.9 Hypotension, unspecified; I13.11 Hypertensive heart and chronic kidney disease without heart failure, with stage 5 chronic kidney disease, or end stage renal disease; E87.70 Fluid overload, unspecified; I50.32 Chronic diastolic (congestive) heart failure; D63.1 Anemia in chronic kidney disease; E78.00 Pure hypercholesterolemia, unspecified; E78.5 Hyperlipidemia, unspecified; G40.909 Epilepsy, unspecified, not intractable, without status epilepticus; Z99.2 Dependence on renal dialysis; Z79.899 Other long term (current) drug therapy; T50.905A Adverse effect of unspecified drugs, medicaments and biological substances, initial encounter
CPT/HCPCS: 36415; 71010; 78582; 80048; 80053; 80061; 80202; 80305; 81001; 82550; 82553; 83605; 83735; 83880; 84100; 84443; 84484; 85025; 85379; 85610; 87040; 87086; 93005; 93970; 96365; 99285; A9558; J0885; J1200; J1610; J1644; J2405; J2543; J3370; J7030; J7050

== ENCOUNTER 2017-03-30 04:03 | Inpatient (IN) | payer MEDICAID ==
[2017-03-30] VITALS (24 sets, daily range): BP systolic 154–217; BP diastolic 88–144
[~2017-03-30] VITALS: Ht 177.8 cm; Wt 75.4 kg
[~2017-03-30 04:03] MED LIST changes: +CLON0.3T PO; +FAMO20TA8 PO; +FOLI-43 PO; +HYDR-4135 PO; +HYDR-519 PO; +KEPP500 PO; +LABE100T PO; +LIP40 PO; +LISI10TA5 PO; +METO25TA6 PO; +REN400 PO; -RENAGEL PO
[2017-03-30] MEDS ORDERED: NITROGLYCERIN 0.4MG TABLET SL SL ONE (04:22)
[2017-03-30] MEDS ORDERED: FUROSEMIDE 40MG/4ML VIAL ONE (04:27)
[2017-03-30 05:27] LABS: BASOPHILS % 0.6 % (0.0-2.0); EOSINOPHILS % 1.7 % (0.0-5.0); HEMATOCRIT. 29.2 % (42.0-52.0); HEMOGLOBIN. 9.6 g/dL (14.0-18.0); LYMPHOCYTES % 8.5 % (20.0-50.0); MEAN CORPUSCULAR HEMOGLOBIN 26.1 pg (28.0-32.0); MEAN CORPUSCULAR VOLUME 79.5 fL (80.0-94.0); MEAN PLATELET VOLUME 7.6 fl (7.4-10.4); MONOCYTES % 9.9 % (2.0-8.0); NEUTROPHILS % 79.3 % (40.0-76.0); PLATELET 159 x1000/uL (130-400); RED BLOOD CELL COUNT 3.67 mill/uL (4.7-6.1); RED CELL DISTRIBUTION WIDTH 17.3 % (11.6-14.6)
[2017-03-30 05:31] LABS: INR 1.1; PROTHROMBIN TIME 10.9 sec (9.4-11.6)
[2017-03-30 05:40] LABS: CARBON DIOXIDE 28 mEq/L (21-32); CHLORIDE 101 mEq/L (98-107); TROPONIN I 0.09 ng/mL (0.00-0.04)
[2017-03-30] MEDS ORDERED: CLONIDINE 0.3MG TABLET PO ONE (06:15)
[2017-03-30] MEDS ORDERED: LABETALOL HCL 20MG/4ML CARPUJECT IV ONE (06:15)
[2017-03-30] MEDS ORDERED: MORPHINE SULFATE 4 MG/ML CPJ (NOT FOR IM USE) IV ONE (06:30)
[2017-03-30] MEDS ORDERED: LABETALOL 5MG/ML SYR 20 MG/4 ML SYRINGE IV SCH (06:38)
[2017-03-30 09:09] LABS: BG BASE EXCESS -1.9 mmol/L (-2.0-2.0); BG BILEVEL POS AIRWAY PRESSURE 15/5; BG CARBOXYHEMOGLOBIN 0.3 % (0.5-1.5); BG DEOXYHEMOGLOBIN 0.6 % (0.0-5.0); BG HCO3 ACT 22.9 mmol/L (22.0-26.0); BG METHEMOGLOBIN 0.3 % (0.0-1.5); BG OXYGEN SATURATION 99.4 % (92.0-98.5); BG OXYHEMOGLOBIN 98.8 % (94.0-97.0); BG PCO2 39.2 mmHg (35.0-45.0); BG PH 7.385 (7.350-7.450); BG PO2 450.5 mmHg (75.0-100.0); BG SAMPLE SITE RIGHT RADIAL; BG TOTAL HEMOGLOBIN 10.4 g/dL (12.0-18.0); BG VENT MODE MASK - BIPAP; BG VENT RATE 12 set
[2017-03-30] MEDS ORDERED: CLONIDINE 0.1MG TABLET PO PRN (11:45)
[2017-03-30] MEDS ORDERED: IPRATROPIUM/ALBUTEROL 0.5-3(2.5)MG/3ML NEB INH PRN (11:45)
[2017-03-30] MEDS ORDERED: MAGNESIUM/ALUMINUM HYDROXIDE/SIMETHICONE 30ML UDC PO PRN (11:45)
[2017-03-30] MEDS ORDERED: ACETAMINOPHEN 325MG TABLET PO PRN (11:45)
[2017-03-30] MEDS ORDERED: HYDRALAZINE 20MG/ML VIAL IV PRN (11:45)
[2017-03-30] MEDS ORDERED: ONDANSETRON HCL 4MG/2ML VIAL IV PRN (11:45)
[2017-03-30] MEDS ORDERED: HYDROCODONE/ACETAMINOPHEN 5/325MG TABLET PO PRN (11:45)
[2017-03-30] MEDS ORDERED: HYDRALAZINE 20MG/ML VIAL IV SCH (11:45)
[2017-03-30] MEDS ORDERED: DOCUSATE SODIUM 100MG CAPSULE PO PRN (11:45)
[2017-03-30 12:51] LABS: PHOSPHORUS 5.6 mg/dL (2.5-4.9)
[2017-03-30] MEDS ORDERED: SODIUM POLYSTYRENE SULFONATE 15 G/60 ML BOT PO SCH (13:45)
[2017-03-30] MEDS ORDERED: GUAIFENESIN-DM 200MG-20MG/10ML UDC PO PRN (15:45)
[2017-03-30] MEDS ORDERED: MINOXIDIL 2.5MG TABLET PO SCH (17:00)
[2017-03-30 17:21] LABS: TROPONIN I 0.08 ng/mL (0.00-0.04)
[2017-03-30 19:07] LABS: CLARITY URINE CLEAR (CLEAR); COLOR URINE YELLOW (YELLOW); KETONES URINE NEGATIVE (NEGATIVE); LEUKOCYTE ESTERASE URINE NEGATIVE (NEGATIVE); NITRITE URINE NEGATIVE (NEGATIVE); OCCULT BLOOD URINE TRACE (NEGATIVE); PROTEIN URINE 3+ (NEGATIVE); SPECIFIC GRAVITY URINE 1.013 (1.005-1.030); UROBILINOGEN URINE 0.2 E.U./dL (0.2-1.0)
[2017-03-30 19:22] LABS: *AMPHETAMINES SCREEN URINE NEGATIVE (NEGATIVE); *BARBITURATES SCREEN URINE NEGATIVE (NEGATIVE); *BENZODIAZEPINES SCREEN URINE NEGATIVE (NEGATIVE); *COCAINE SCREEN URINE PRESUMTIVE POSITIVE (NEGATIVE); CANNABINOID URINE SCREEN NEGATIVE (NEGATIVE); METHADONE URINE SCREEN NEGATIVE (NEGATIVE); OPIATES URINE SCREEN NEGATIVE (NEGATIVE); PHENCYCLIDINE URINE SCREEN PRESUMTIVE POSITIVE (NEGATIVE)
[2017-03-30] MEDS: IPRATROPIUM/ALBUTEROL 0.5-3(2.5)MG/3ML NEB HHN SCH (20:51)
[2017-03-30] MEDS ORDERED: LEVETIRACETAM 500MG TABLET PO SCH (21:00)
[2017-03-30] MEDS ORDERED: HEPARIN SODIUM 1,000 UNIT/1ML VIAL IV SCH (21:00)
[2017-03-30] MEDS ORDERED: VANCOMYCIN 1 G PREMIX 200 ML IV NR (22:15)
[2017-03-30] MEDS: ATORVASTATIN CALCIUM 40MG TABLET PO SCH (22:33)
[2017-03-30] MEDS: LABETALOL HCL 100MG TABLET PO SCH (22:33)
[2017-03-30] MEDS: METOPROLOL TARTRATE 25MG TABLET PO SCH (22:33)
[2017-03-30] MEDS: HYDRALAZINE HCL 50MG TABLET PO SCH (22:34)
[2017-03-30] MEDS: LEVETIRACETAM 500MG TABLET PO SCH (22:34)
[2017-03-30] MEDS: LISINOPRIL 10MG TABLET PO SCH (22:34)
[2017-03-30] MEDS: CLONIDINE 0.3MG TABLET PO SCH (22:49)
[2017-03-31] VITALS (102 sets, daily range): BP systolic 101–167; BP diastolic 54–125
[2017-03-31] MEDS: IPRATROPIUM/ALBUTEROL 0.5-3(2.5)MG/3ML NEB HHN SCH ×4 (00:51→20:38)
[2017-03-31 01:57] LABS: CREATINE KINASE MB FRACTION 0.7 ng/mL (0.5-3.6)
[2017-03-31 02:04] LABS: TROPONIN I 0.07 ng/mL (0.00-0.04)
[2017-03-31] MEDS: CEFTRIAXONE 2 G in DEXTROSE 5% WATER 50 ML IV SCH ×2 (03:45→17:34)
[2017-03-31] MEDS: CLONIDINE 0.3MG TABLET PO SCH ×3 (05:26→22:33)
[2017-03-31] MEDS: HYDROCODONE/ACETAMINOPHEN 10/325MG TABLET PO PRN ×3 (05:26→22:40)
[2017-03-31] MEDS: HYDRALAZINE HCL 50MG TABLET PO SCH ×3 (05:26→22:33)
[2017-03-31] MEDS: SEVELAMER CARBONATE 800 MG TABLET PO SCH ×3 (05:27→17:34)
[2017-03-31 06:04] LABS: BASOPHILS % 0.5 % (0.0-2.0); EOSINOPHILS % 1.2 % (0.0-5.0); HEMATOCRIT. 26.8 % (42.0-52.0); HEMOGLOBIN. 9.3 g/dL (14.0-18.0); LYMPHOCYTES % 7.2 % (20.0-50.0); MEAN CORPUSCULAR HEMOGLOBIN 28.1 pg (28.0-32.0); MEAN PLATELET VOLUME 7.8 fl (7.4-10.4); MONOCYTES % 12.3 % (2.0-8.0); NEUTROPHILS % 78.8 % (40.0-76.0); PLATELET 132 x1000/uL (130-400); RED BLOOD CELL COUNT 3.32 mill/uL (4.7-6.1); RED CELL DISTRIBUTION WIDTH 17.7 % (11.6-14.6)
[2017-03-31] MEDS: AMLODIPINE 10MG TABLET PO SCH (09:43)
[2017-03-31] MEDS: LISINOPRIL 10MG TABLET PO SCH ×2 (09:43→22:35)
[2017-03-31] MEDS: LABETALOL HCL 100MG TABLET PO SCH ×2 (09:44→22:32)
[2017-03-31] MEDS: LEVETIRACETAM 500MG TABLET PO SCH ×2 (09:44→22:33)
[2017-03-31] MEDS: METOPROLOL TARTRATE 25MG TABLET PO SCH ×2 (09:44→22:34)
[2017-03-31] MEDS ORDERED: HYDR-4135 PO (11:01)
[2017-03-31] MEDS ORDERED: LIP40 PO (11:01)
[2017-03-31] MEDS ORDERED: MINO2.5T19 PO (11:01)
[2017-03-31] MEDS ORDERED: SEVE800T8 PO (11:01)
[2017-03-31] MEDS ORDERED: AMLO10TA80 PO (11:01)
[2017-03-31] MEDS ORDERED: KEPP500 PO (11:01)
[2017-03-31] MEDS ORDERED: FURO80TA3 PO (11:01)
[2017-03-31] MEDS ORDERED: LABE100T PO (11:01)
[2017-03-31] MEDS ORDERED: HYDR-4009 PO (11:01)
[2017-03-31] MEDS ORDERED: LISI10TA5 PO (11:01)
[2017-03-31] MEDS ORDERED: CLON0.3T4 PO (11:01)
[2017-03-31] MEDS ORDERED: VANCOMYCIN 500 MG PREMIX 100 ML IV NR (13:00)
[2017-03-31] MEDS: FUROSEMIDE 80MG TABLET PO SCH (20:49)
[2017-03-31] MEDS: ATORVASTATIN CALCIUM 40MG TABLET PO SCH (22:31)
[2017-04-01] VITALS (19 sets, daily range): BP systolic 126–163; BP diastolic 47–99
[2017-04-01] MEDS: IPRATROPIUM/ALBUTEROL 0.5-3(2.5)MG/3ML NEB HHN SCH ×2 (00:53→07:59)
[2017-04-01] MEDS: CLONIDINE 0.3MG TABLET PO SCH (06:31)
[2017-04-01] MEDS: SEVELAMER CARBONATE 800 MG TABLET PO SCH (06:31)
[2017-04-01] MEDS: HYDRALAZINE HCL 50MG TABLET PO SCH (06:31)
[2017-04-01] MEDS: FUROSEMIDE 80MG TABLET PO SCH (07:32)
[2017-04-01] MEDS: LISINOPRIL 10MG TABLET PO SCH (09:15)
[2017-04-01] MEDS: LEVETIRACETAM 500MG TABLET PO SCH (09:16)
[2017-04-01] MEDS: LABETALOL HCL 100MG TABLET PO SCH (09:16)
[2017-04-01] MEDS: METOPROLOL TARTRATE 25MG TABLET PO SCH (09:16)
[2017-04-01] MEDS: AMLODIPINE 10MG TABLET PO SCH (09:16)
== END 2017-04-01 10:00 | disposition home or self-care (01) | DRG 133 ==
LOC: ER 04:08 → MICUSO 05:50 → ENRESERV 14:48
PROVIDERS: ADMIT Internal Medicine; ATTEND Internal Medicine
PROC: 5A09457 Assistance with Respiratory Ventilation, 24-96 Consecutive Hours, Continuous Positive Airway Pressure (ICD-10-PCS; principal; 2017-03-30)
PROC: 5A1D70Z Performance of Urinary Filtration, Intermittent, Less than 6 Hours Per Day (ICD-10-PCS; 2017-03-30)
DX: J96.00 Acute respiratory failure, unspecified whether with hypoxia or hypercapnia (principal); I50.33 Acute on chronic diastolic (congestive) heart failure; I24.8 Other forms of acute ischemic heart disease; N18.6 End stage renal disease; J68.0 Bronchitis and pneumonitis due to chemicals, gases, fumes and vapors; E11.22 Type 2 diabetes mellitus with diabetic chronic kidney disease; J06.9 Acute upper respiratory infection, unspecified; I16.1 Hypertensive emergency; I13.2 Hypertensive heart and chronic kidney disease with heart failure and with stage 5 chronic kidney disease, or end stage renal disease; E87.5 Hyperkalemia; D63.1 Anemia in chronic kidney disease; E78.00 Pure hypercholesterolemia, unspecified; E78.5 Hyperlipidemia, unspecified; F17.210 Nicotine dependence, cigarettes, uncomplicated; G40.909 Epilepsy, unspecified, not intractable, without status epilepticus; F14.90 Cocaine use, unspecified, uncomplicated; T50.995A Adverse effect of other drugs, medicaments and biological substances, initial encounter; Z91.19 Patient's noncompliance with other medical treatment and regimen; Z99.2 Dependence on renal dialysis; Z79.82 Long term (current) use of aspirin; Z87.828 Personal history of other (healed) physical injury and trauma; Z79.899 Other long term (current) drug therapy; Z88.8 Allergy status to other drugs, medicaments and biological substances; Y92.89 Other specified places as the place of occurrence of the external cause
CPT/HCPCS: 36415; 36600; 71010; 80048; 80053; 80061; 80305; 81001; 82375; 82550; 82553; 82805; 82962; 83605; 83735; 83880; 84100; 84484; 85025; 85610; 87040; 87070; 93005; 93306; 93970; 94640; 94660; 96361; 96374; 96375; 99291; J0360; J0696; J1644; J1940; J2270; J3370; J3490; J7050; J7060; J7620

== ENCOUNTER 2017-06-08 21:53 | Emergency (ER) | payer MEDICAID ==
[~2017-06-08] VITALS: Ht 170.2 cm; Wt 72.0 kg
[~2017-06-08 21:53] MED LIST changes: -AMLO10TA80 PO; -CLON0.3T PO; +CLON0.3T4 PO; -HYDR-519 PO; -METO25TA6 PO; -MINO2.5T19 PO; -REN400 PO; +SEVE800T8 PO
[2017-06-08] MEDS ORDERED: HALOPERIDOL LACTATE 5MG/ML VIAL IM STA (22:58)
[2017-06-08] MEDS ORDERED: LORAZEPAM 2MG/ML CPJ IM STA (22:58)
[2017-06-08] MEDS ORDERED: ZIPRASIDONE MESYLATE 20MG/VIAL IM ONE (23:30)
[2017-06-08 23:32] LABS: HEMATOCRIT. 32.8 % (42.0-52.0); HEMOGLOBIN. 10.5 g/dL (14.0-18.0); MEAN CORPUSCULAR HEMOGLOBIN 27.1 pg (28.0-32.0); MEAN CORPUSCULAR VOLUME 84.4 fL (80.0-94.0); MEAN PLATELET VOLUME 7.4 fl (7.4-10.4); PLATELET 195 x1000/uL (130-400); RED BLOOD CELL COUNT 3.88 mill/uL (4.7-6.1); RED CELL DISTRIBUTION WIDTH 18.8 % (11.6-14.6)
[2017-06-08 23:35] LABS: CHLORIDE 105 mEq/L (98-107)
[2017-06-08 23:41] LABS: ETHANOL BLOOD < 10 mg/dL
[2017-06-09 00:28] LABS: ATYPICAL LYMPHOCYTES 1; PLATELET ESTIMATE NORMAL
[2017-06-09] MEDS ORDERED: CLONIDINE 0.1MG TABLET PO ONE (01:15)
[2017-06-09] MEDS ORDERED: LORAZEPAM 2MG/ML CPJ IV ONE (03:30)
[2017-06-09] MEDS ORDERED: CLONIDINE 0.3MG TABLET PO ONE (06:30)
[2017-06-09 10:54] VITALS: BP 155/99
== END 2017-06-09 10:56 | disposition home or self-care (01) ==
LOC: ER 21:53
DX: F16.10 Hallucinogen abuse, uncomplicated (principal); I12.0 Hypertensive chronic kidney disease with stage 5 chronic kidney disease or end stage renal disease; N18.6 End stage renal disease; F17.200 Nicotine dependence, unspecified, uncomplicated; Z99.2 Dependence on renal dialysis; Z88.8 Allergy status to other drugs, medicaments and biological substances
CPT/HCPCS: 36415; 80053; 80307; 80329; 82962; 85025; 96372; 99284; G0482; J1630; J2060; Z7610

== ENCOUNTER 2017-10-26 07:08 | Emergency (ER) | payer MEDICAID ==
[~2017-10-26] VITALS: Ht 177.8 cm; Wt 88.0 kg
[~2017-10-26 07:08] MED LIST changes: +AMLO10TA80 PO; +B50 PO; +CEPH500C2 PO; +CLIN-123 PO; -CLON0.3T4 PO; +EPOE40007 SUBCUT; -FAMO20TA8 PO; -FOLI-43 PO; +HYDR-4094 PO; -LIP40 PO; +MINO10TA PO
[2017-10-26] MEDS ORDERED: IBUPROFEN 600MG TABLET PO ONE (07:45)
[2017-10-26] MEDS ORDERED: LORAZEPAM 1MG TABLET PO ONE (07:45)
[2017-10-26 08:16] LABS: CHLORIDE 102 mEq/L (98-107)
[2017-10-26 08:20] LABS: ETHANOL BLOOD < 10 mg/dL; HEMATOCRIT. 28.7 % (42.0-52.0); HEMOGLOBIN. 9.4 g/dL (14.0-18.0); MEAN CORPUSCULAR HEMOGLOBIN 28.1 pg (28.0-32.0); MEAN CORPUSCULAR VOLUME 85.7 fL (80.0-94.0); MEAN PLATELET VOLUME 7.7 fl (7.4-10.4); PLATELET 170 x1000/uL (130-400); RED BLOOD CELL COUNT 3.34 mill/uL (4.7-6.1)
[2017-10-26 10:12] LABS: PLATELET ESTIMATE NORMAL
[2017-10-26 11:45] VITALS: BP 178/124
== END 2017-10-26 11:51 | disposition home or self-care (01) ==
LOC: ER 07:08
DX: I12.0 Hypertensive chronic kidney disease with stage 5 chronic kidney disease or end stage renal disease (principal); N18.6 End stage renal disease; M25.512 Pain in left shoulder; R56.9 Unspecified convulsions; I77.0 Arteriovenous fistula, acquired; F14.10 Cocaine abuse, uncomplicated; F19.10 Other psychoactive substance abuse, uncomplicated; F17.200 Nicotine dependence, unspecified, uncomplicated; Z88.1 Allergy status to other antibiotic agents; Z79.899 Other long term (current) drug therapy; Z99.2 Dependence on renal dialysis
CPT/HCPCS: 36415; 71045; 80053; 85025; 93005; 99285; G0482; Z7610

== ENCOUNTER 2018-01-02 09:22 | Inpatient (IN) | payer MEDICAID ==
[~2018-01-02] VITALS: Ht 170.2 cm; Wt 74.8 kg
[~2018-01-02 09:22] MED LIST changes: -LABE100T PO; +LABE100T5 PO
[2018-01-02] MEDS ORDERED: HYDRALAZINE 20MG/ML VIAL IV ONE (10:00)
[2018-01-02] MEDS ORDERED: CLONIDINE 0.2MG TABLET PO ONE (10:00)
[2018-01-02 11:14] LABS: BASOPHILS % 0.8 % (0.0-2.0); EOSINOPHILS % 3.7 % (0.0-5.0); HEMATOCRIT. 28.8 % (42.0-52.0); HEMOGLOBIN. 9.7 g/dL (14.0-18.0); LYMPHOCYTES % 11.9 % (20.0-50.0); MEAN CORPUSCULAR HEMOGLOBIN 28.4 pg (28.0-32.0); MEAN CORPUSCULAR VOLUME 84.3 fL (80.0-94.0); MEAN PLATELET VOLUME 8.9 fl (7.4-10.4); MONOCYTES % 12.4 % (2.0-8.0); NEUTROPHILS % 71.2 % (40.0-76.0); PLATELET 167 x1000/uL (130-400); RED BLOOD CELL COUNT 3.41 mill/uL (4.7-6.1); RED CELL DISTRIBUTION WIDTH 19.1 % (11.6-14.6)
[2018-01-02] MEDS ORDERED: SODIUM POLYSTYRENE SULFONATE 15 G/60 ML BOT PO ONE (13:15)
[2018-01-02] MEDS ORDERED: DEXTROSE 50% WATER 50ML SYRINGE IV ONE (13:15)
[2018-01-02] MEDS ORDERED: INSULIN REGULAR (HUMULIN R) UD 100 UNITS/ML SYR IV ONE (13:15)
[2018-01-02] MEDS ORDERED: ALBUTEROL (0.083%) 2.5MG/3ML NEB HHN ONE (13:15)
[2018-01-02] MEDS ORDERED: INSULIN REGULAR (HUMULIN R) 300UNITS/3ML IV NR (14:15)
[2018-01-02 15:49] VITALS: BP 195/123
[2018-01-02 16:00] VITALS: BP 195/123
[2018-01-02] MEDS ORDERED: CLONIDINE 0.2MG TABLET PO PRN (16:15)
[2018-01-02] MEDS ORDERED: CLON0.3T PO (16:36)
[2018-01-02] MEDS: DIPHENHYDRAMINE 50MG/ML VIAL IV PRN ×2 (17:16→23:14)
[2018-01-02] MEDS: MORPHINE SULFATE 4 MG/ML CPJ (NOT FOR IM USE) IV PRN ×2 (17:28→21:41)
[2018-01-02 20:30] VITALS: BP 201/136
[2018-01-02] MEDS: LEVETIRACETAM 500MG/5ML CUP PO SCH (20:33)
[2018-01-02] MEDS: CLONIDINE 0.3MG TABLET PO SCH (20:36)
[2018-01-02] MEDS: LABETALOL HCL 100MG TABLET PO SCH (20:36)
[2018-01-02 23:13] VITALS: BP 164/116
[2018-01-02] MEDS: HYDRALAZINE HCL 100MG TABLET PO SCH (23:13)
[2018-01-03] MEDS: MORPHINE SULFATE 4 MG/ML CPJ (NOT FOR IM USE) IV PRN ×5 (01:25→20:07)
[2018-01-03 04:00] VITALS: BP 158/106
[2018-01-03] MEDS: CLONIDINE 0.3MG TABLET PO SCH ×2 (05:58→13:46)
[2018-01-03] MEDS: DIPHENHYDRAMINE 50MG/ML VIAL IV PRN ×4 (06:04→22:05)
[2018-01-03 06:06] VITALS: BP 134/91
[2018-01-03 08:20] VITALS: BP 119/79
[2018-01-03] MEDS: LEVETIRACETAM 500MG/5ML CUP PO SCH ×2 (08:26→20:15)
[2018-01-03] MEDS: SEVELAMER CARBONATE 800 MG TABLET PO SCH ×3 (08:27→18:00)
[2018-01-03] MEDS: LABETALOL HCL 100MG TABLET PO SCH ×2 (08:27→21:00)
[2018-01-03] MEDS: FOLIC ACID/VITAMIN B COMP W-C TABLET PO SCH (08:27)
[2018-01-03] MEDS: FUROSEMIDE 80MG TABLET PO SCH (08:27)
[2018-01-03] MEDS: HYDRALAZINE HCL 100MG TABLET PO SCH ×3 (08:27→16:02)
[2018-01-03] MEDS: AMLODIPINE 10MG TABLET PO SCH (08:28)
[2018-01-03] MEDS: MINOXIDIL 10MG TABLET PO SCH (08:28)
[2018-01-03 10:47] LABS: HEMATOCRIT 29.4 % (42.0-52.0); HEMOGLOBIN 9.8 g/dL (14.0-18.0); MEAN CORPUSCULAR HEMOGLOBIN 28.3 pg (28.0-32.0); MEAN CORPUSCULAR VOLUME 84.8 fL (80.0-94.0); PLATELET 194 x1000/uL (130-400); RED BLOOD CELL COUNT 3.46 mill/uL (4.7-6.1); RED CELL DISTRIBUTION WIDTH 19.7 % (11.6-14.6)
[2018-01-03] MEDS ORDERED: LEVOFLOXACIN 250MG PREMIX 50 ML IV SCH (11:00)
[2018-01-03 11:39] VITALS: BP 96/53
[2018-01-03 15:41] VITALS: BP 101/55
[2018-01-03 20:00] VITALS: BP 106/64
[2018-01-03] MEDS: CLONIDINE 0.2MG TABLET PO SCH (21:31)
[2018-01-03 23:29] LABS: *BENZODIAZEPINES SCREEN URINE NEGATIVE (NEGATIVE); *COCAINE SCREEN URINE PRESUMTIVE POSITIVE (NEGATIVE); METHADONE URINE SCREEN NEGATIVE (NEGATIVE); OPIATES URINE SCREEN PRESUMTIVE POSITIVE (NEGATIVE)
[2018-01-03 23:30] LABS: *AMPHETAMINES SCREEN URINE NEGATIVE (NEGATIVE); *BARBITURATES SCREEN URINE NEGATIVE (NEGATIVE); CANNABINOID URINE SCREEN NEGATIVE (NEGATIVE); PHENCYCLIDINE URINE SCREEN PRESUMTIVE POSITIVE (NEGATIVE)
[2018-01-04] VITALS: BP 111/66
[2018-01-04] MEDS: MORPHINE SULFATE 4 MG/ML CPJ (NOT FOR IM USE) IV PRN ×2 (00:10→06:10)
[2018-01-04] MEDS: DIPHENHYDRAMINE 50MG/ML VIAL IV PRN ×4 (02:23→14:45)
[2018-01-04 04:00] VITALS: BP 121/76
[2018-01-04] MEDS: CLONIDINE 0.2MG TABLET PO SCH ×2 (06:00→14:51)
[2018-01-04] MEDS: SEVELAMER CARBONATE 800 MG TABLET PO SCH ×3 (06:23→18:28)
[2018-01-04 07:18] LABS: HEMOGLOBIN. 8.8 g/dL (14.0-18.0); MEAN CORPUSCULAR HEMOGLOBIN 28.6 pg (28.0-32.0); MEAN CORPUSCULAR VOLUME 84.4 fL (80.0-94.0); MEAN PLATELET VOLUME 8.3 fl (7.4-10.4); PLATELET 194 x1000/uL (130-400); RED BLOOD CELL COUNT 3.08 mill/uL (4.7-6.1)
[2018-01-04 08:00] VITALS: BP 129/83
[2018-01-04] MEDS: LEVETIRACETAM 500MG/5ML CUP PO SCH (08:44)
[2018-01-04] MEDS: FOLIC ACID/VITAMIN B COMP W-C TABLET PO SCH (08:44)
[2018-01-04] MEDS: LABETALOL HCL 100MG TABLET PO SCH (08:47)
[2018-01-04] MEDS: AMLODIPINE 10MG TABLET PO SCH (08:47)
[2018-01-04] MEDS: MINOXIDIL 10MG TABLET PO SCH (08:48)
[2018-01-04] MEDS: HYDRALAZINE HCL 100MG TABLET PO SCH ×3 (08:48→18:28)
[2018-01-04] MEDS: FUROSEMIDE 80MG TABLET PO SCH (08:48)
[2018-01-04 11:30] LABS: PLATELET ESTIMATE NORMAL
[2018-01-04 12:00] VITALS: BP 128/82
[2018-01-04 16:00] VITALS: BP 124/67
[2018-01-04 16:21] VITALS: BP 124/67
== END 2018-01-04 19:25 | disposition home or self-care (01) | DRG 425 ==
LOC: ER 09:39 → ENRESERV 13:26 → 7WST 15:19
PROVIDERS: ADMIT Internal Medicine; ATTEND Internal Medicine
PROC: 5A1D70Z Performance of Urinary Filtration, Intermittent, Less than 6 Hours Per Day (ICD-10-PCS; principal; 2018-01-02)
PROC: 5A1D70Z Performance of Urinary Filtration, Intermittent, Less than 6 Hours Per Day (ICD-10-PCS; 2018-01-03)
PROC: 5A1D70Z Performance of Urinary Filtration, Intermittent, Less than 6 Hours Per Day (ICD-10-PCS; 2018-01-04)
DX: E87.5 Hyperkalemia (principal); I13.2 Hypertensive heart and chronic kidney disease with heart failure and with stage 5 chronic kidney disease, or end stage renal disease; I27.20 Pulmonary hypertension, unspecified; N18.6 End stage renal disease; G40.909 Epilepsy, unspecified, not intractable, without status epilepticus; E78.5 Hyperlipidemia, unspecified; D63.8 Anemia in other chronic diseases classified elsewhere; E78.00 Pure hypercholesterolemia, unspecified; I50.33 Acute on chronic diastolic (congestive) heart failure; Z99.2 Dependence on renal dialysis; Z88.8 Allergy status to other drugs, medicaments and biological substances; Z79.899 Other long term (current) drug therapy
CPT/HCPCS: 36415; 71045; 80048; 80305; 82040; 85025; 85027; 87040; 93005; 94640; 96374; 96375; 99285; J0360; J1200; J1815; J1956; J2270; J7030; J7050; J7611

== ENCOUNTER 2018-01-27 01:20 | Inpatient (IN) | payer MEDICAID ==
[~2018-01-27] VITALS: Ht 170.2 cm; Wt 64.0 kg
[~2018-01-27 01:20] MED LIST changes: -CEPH500C2 PO; -EPOE40007 SUBCUT; -LISI10TA5 PO
[2018-01-27] MEDS ORDERED: OLANZAPINE 10 MG/VIAL IM ONE (02:00)
[2018-01-27 03:31] LABS: BASOPHILS % 0.7 % (0.0-2.0); EOSINOPHILS % 4.5 % (0.0-5.0); HEMATOCRIT. 36.8 % (42.0-52.0); HEMOGLOBIN. 11.6 g/dL (14.0-18.0); LYMPHOCYTES % 8.6 % (20.0-50.0); MEAN CORPUSCULAR HEMOGLOBIN 27.7 pg (28.0-32.0); MEAN CORPUSCULAR VOLUME 87.7 fL (80.0-94.0); MONOCYTES % 7.3 % (2.0-8.0); NEUTROPHILS % 78.9 % (40.0-76.0); PLATELET 215 x1000/uL (130-400); RED CELL DISTRIBUTION WIDTH 20.7 % (11.6-14.6)
[2018-01-27 03:40] LABS: CHLORIDE 105 mEq/L (98-107)
[2018-01-27 03:47] LABS: ETHANOL BLOOD < 10 mg/dL
[2018-01-27 05:09] LABS: *AMPHETAMINES SCREEN URINE NEGATIVE (NEGATIVE); *BARBITURATES SCREEN URINE NEGATIVE (NEGATIVE); *BENZODIAZEPINES SCREEN URINE NEGATIVE (NEGATIVE); *COCAINE SCREEN URINE PRESUMTIVE POSITIVE (NEGATIVE)
[2018-01-27 05:10] LABS: CANNABINOID URINE SCREEN NEGATIVE (NEGATIVE); METHADONE URINE SCREEN NEGATIVE (NEGATIVE); OPIATES URINE SCREEN NEGATIVE (NEGATIVE); PHENCYCLIDINE URINE SCREEN PRESUMTIVE POSITIVE (NEGATIVE)
[2018-01-27] MEDS ORDERED: CLONIDINE 0.3MG TABLET PO ONE (06:30)
[2018-01-27] MEDS: CLONIDINE 0.1MG TABLET PO PRN ×2 (10:30→18:54)
[2018-01-27] MEDS: LEVETIRACETAM 500MG TABLET PO SCH ×2 (10:30→20:50)
[2018-01-27] MEDS: LOSARTAN POTASSIUM 100 MG TABLET PO SCH (11:26)
[2018-01-27] MEDS: SEVELAMER CARBONATE 800 MG TABLET PO SCH ×2 (11:26→18:53)
[2018-01-27 17:41] VITALS: BP 204/144
[2018-01-27 18:31] VITALS: BP 207/144
[2018-01-27] MEDS: HYDRALAZINE HCL 100MG TABLET PO SCH (18:54)
[2018-01-27] MEDS ORDERED: HYDRALAZINE 20MG/ML VIAL IV PRN (19:00)
[2018-01-27] MEDS: MINOXIDIL 10MG TABLET PO SCH (19:00)
[2018-01-27 20:00] VITALS: BP 170/114
[2018-01-27] MEDS ORDERED: LABETALOL 5MG/ML SYR 20 MG/4 ML SYRINGE IV NR (20:00)
[2018-01-27] MEDS: LABETALOL HCL 200MG TABLET PO SCH (21:00)
[2018-01-28 00:45] VITALS: BP 162/112
[2018-01-28 04:00] VITALS: BP 154/103
[2018-01-28] MEDS: HYDRALAZINE HCL 100MG TABLET PO SCH ×2 (06:08→13:23)
[2018-01-28 07:23] LABS: BASOPHILS % 1.4 % (0.0-2.0); EOSINOPHILS % 5.2 % (0.0-5.0); HEMATOCRIT. 35.5 % (42.0-52.0); HEMOGLOBIN. 11.8 g/dL (14.0-18.0); LYMPHOCYTES % 19.1 % (20.0-50.0); MEAN CORPUSCULAR HEMOGLOBIN 28.4 pg (28.0-32.0); MEAN CORPUSCULAR VOLUME 85.5 fL (80.0-94.0); MEAN PLATELET VOLUME 8.1 fl (7.4-10.4); MONOCYTES % 12.2 % (2.0-8.0); NEUTROPHILS % 62.1 % (40.0-76.0); PLATELET 209 x1000/uL (130-400); RED BLOOD CELL COUNT 4.15 mill/uL (4.7-6.1); RED CELL DISTRIBUTION WIDTH 20.3 % (11.6-14.6)
[2018-01-28 08:44] VITALS: BP 135/103
[2018-01-28] MEDS: MINOXIDIL 10MG TABLET PO SCH (09:09)
[2018-01-28] MEDS: SEVELAMER CARBONATE 800 MG TABLET PO SCH ×3 (09:09→13:23)
[2018-01-28] MEDS: LOSARTAN POTASSIUM 100 MG TABLET PO SCH (09:09)
[2018-01-28] MEDS: LABETALOL HCL 200MG TABLET PO SCH (09:09)
[2018-01-28] MEDS: LEVETIRACETAM 500MG TABLET PO SCH (09:09)
[2018-01-28] MEDS ORDERED: HYDROCODONE/ACETAMINOPHEN 5/325MG TABLET PO PRN (11:15)
[2018-01-28] MEDS ORDERED: DIPHENHYDRAMINE 50MG/ML VIAL IV PRN (11:15)
[2018-01-28 11:46] VITALS: BP 118/70
[2018-01-28 12:07] VITALS: BP 118/70
== END 2018-01-28 15:10 | disposition home or self-care (01) | DRG 194 ==
LOC: ER 01:20 → EDBEDREQTM 05:35 → EDBEDREQ 05:35 → ENRESERV 16:02 → CANBEDREQ 16:06 → 6WST 17:32
PROVIDERS: ADMIT Internal Medicine; ATTEND Internal Medicine
PROC: 5A1D70Z Performance of Urinary Filtration, Intermittent, Less than 6 Hours Per Day (ICD-10-PCS; principal; 2018-01-27)
DX: I13.2 Hypertensive heart and chronic kidney disease with heart failure and with stage 5 chronic kidney disease, or end stage renal disease (principal); G92 Toxic encephalopathy; I27.20 Pulmonary hypertension, unspecified; N18.6 End stage renal disease; D63.8 Anemia in other chronic diseases classified elsewhere; E78.00 Pure hypercholesterolemia, unspecified; G89.4 Chronic pain syndrome; E78.5 Hyperlipidemia, unspecified; G40.909 Epilepsy, unspecified, not intractable, without status epilepticus; F14.10 Cocaine abuse, uncomplicated; F99 Mental disorder, not otherwise specified; I50.33 Acute on chronic diastolic (congestive) heart failure; Z79.899 Other long term (current) drug therapy; Z88.8 Allergy status to other drugs, medicaments and biological substances; Z99.2 Dependence on renal dialysis; Z91.15 Patient's noncompliance with renal dialysis
CPT/HCPCS: 36415; 71045; 80048; 80305; 80307; 80329; 83930; 84484; 93005; 96372; 99285; G0482; J1200; J3490

== ENCOUNTER 2018-03-19 19:30 | Inpatient (IN) | payer MEDICAID ==
[~2018-03-19] VITALS: Ht 171.4 cm; Wt 64.4 kg
[~2018-03-19 19:30] MED LIST changes: -AMLO10TA80 PO; -MINO10TA PO
[2018-03-19] MEDS ORDERED: CLONIDINE 0.2MG TABLET PO ONE (23:15)
[2018-03-19] MEDS ORDERED: ASPIRIN 81MG TABLET PO ONE (23:30)
[2018-03-19] MEDS ORDERED: FENTANYL CITRATE/PF 50MCG/ML 2ML VIAL IV ONE (23:45)
[2018-03-20] VITALS (8 sets, daily range): BP systolic 146–195; BP diastolic 97–132
[2018-03-20] MEDS ORDERED: LEVETIRACETAM 500MG TABLET PO ONE (00:30)
[2018-03-20] MEDS ORDERED: DIPHENHYDRAMINE 25MG CAPSULE PO ONE (00:30)
[2018-03-20 00:50] LABS: EOSINOPHILS % 2.2 % (0.0-5.0); HEMATOCRIT. 29.3 % (42.0-52.0); HEMOGLOBIN. 9.7 g/dL (14.0-18.0); LYMPHOCYTES % 12.7 % (20.0-50.0); MEAN CORPUSCULAR HEMOGLOBIN 28.4 pg (28.0-32.0); MEAN PLATELET VOLUME 7.9 fl (7.4-10.4); MONOCYTES % 9.4 % (2.0-8.0); NEUTROPHILS % 74.7 % (40.0-76.0); PLATELET 234 x1000/uL (130-400); RED CELL DISTRIBUTION WIDTH 18.2 % (11.6-14.6)
[2018-03-20 00:57] LABS: INR 1.1; PROTHROMBIN TIME 10.7 sec (9.1-11.1)
[2018-03-20 01:11] LABS: CHLORIDE 106 mEq/L (98-107)
[2018-03-20] MEDS ORDERED: INSULIN REGULAR (HUMULIN R) 300UNITS/3ML IV NR (02:00)
[2018-03-20] MEDS ORDERED: DEXTROSE 50% WATER 50ML SYRINGE IV NR (02:00)
[2018-03-20] MEDS ORDERED: SODIUM BICARBONATE 8.4% 1 MEQ/ML 50ML SYR IV NR (02:00)
[2018-03-20] MEDS ORDERED: CALCIUM CHLORIDE 1GM/10ML SYR IV NR (02:00)
[2018-03-20] MEDS ORDERED: SODIUM POLYSTYRENE SULFONATE 15 G/60 ML BOT PO NR (02:00)
[2018-03-20] MEDS: ALBUTEROL (0.083%) 2.5MG/3ML NEB HHN NR ×2 (02:10→02:15)
[2018-03-20] MEDS ORDERED: DEXTROSE 50% WATER 50ML SYRINGE IV ONE (04:07)
[2018-03-20] MEDS: HYDRALAZINE 20MG/ML VIAL IV PRN ×2 (07:07→14:54)
[2018-03-20] MEDS ORDERED: HYDRALAZINE HCL 100MG TABLET PO SCH (09:00)
[2018-03-20] MEDS ORDERED: LABETALOL HCL 100MG TABLET PO SCH (09:00)
[2018-03-20] MEDS ORDERED: CLONIDINE 0.1MG TABLET PO PRN (10:15)
[2018-03-20] MEDS ORDERED: ACETAMINOPHEN 325MG TABLET PO PRN (10:15)
[2018-03-20] MEDS: DIPHENHYDRAMINE 50MG/ML VIAL IV NR ×2 (11:40→17:22)
[2018-03-20] MEDS ORDERED: HEPARIN SODIUM 1,000 UNIT/1ML VIAL IV SCH (12:15)
[2018-03-20] MEDS: HYDROCODONE/ACETAMINOPHEN 10/325MG TABLET PO PRN ×2 (16:26→23:35)
[2018-03-20] MEDS: FUROSEMIDE 80MG TABLET PO SCH (16:26)
[2018-03-20] MEDS: HYDRALAZINE HCL 100MG TABLET PO SCH (17:24)
[2018-03-20] MEDS: AMLODIPINE 5MG TABLET PO SCH ×2 (17:24→20:54)
[2018-03-20] MEDS: SEVELAMER CARBONATE 800 MG TABLET PO SCH (17:47)
[2018-03-20] MEDS: DIPHENHYDRAMINE 50MG/ML VIAL IV PRN (18:54)
[2018-03-20] MEDS: GUAIFENESIN-DM 200MG-20MG/10ML UDC PO PRN ×2 (18:54→23:35)
[2018-03-20] MEDS: CLONIDINE 0.2MG TABLET PO PRN (18:57)
[2018-03-20] MEDS: LABETALOL HCL 300MG TABLET PO SCH (20:55)
[2018-03-20] MEDS: LEVETIRACETAM 500MG TABLET PO SCH (20:55)
[2018-03-20] MEDS ORDERED: AMLODIPINE 5MG TABLET PO SCH (21:00)
[2018-03-20 21:13] LABS: BASOPHILS % 0.7 % (0.0-2.0); EOSINOPHILS % 2.4 % (0.0-5.0); HEMATOCRIT. 26.3 % (42.0-52.0); HEMOGLOBIN. 8.9 g/dL (14.0-18.0); LYMPHOCYTES % 10.5 % (20.0-50.0); MEAN CORPUSCULAR HEMOGLOBIN 28.5 pg (28.0-32.0); MEAN CORPUSCULAR VOLUME 84.6 fL (80.0-94.0); MEAN PLATELET VOLUME 7.9 fl (7.4-10.4); MONOCYTES % 9.8 % (2.0-8.0); NEUTROPHILS % 76.6 % (40.0-76.0); PLATELET 190 x1000/uL (130-400); RED BLOOD CELL COUNT 3.11 mill/uL (4.7-6.1); RED CELL DISTRIBUTION WIDTH 17.9 % (11.6-14.6)
[2018-03-21] VITALS (12 sets, daily range): BP systolic 116–161; BP diastolic 67–97
[2018-03-21] MEDS: HYDRALAZINE HCL 100MG TABLET PO SCH ×3 (04:00→18:00)
[2018-03-21] MEDS: DIPHENHYDRAMINE 50MG/ML VIAL IV PRN ×3 (04:02→21:37)
[2018-03-21] MEDS: GUAIFENESIN-DM 200MG-20MG/10ML UDC PO PRN ×3 (04:48→17:22)
[2018-03-21 06:30] LABS: BASOPHILS % 0.9 % (0.0-2.0); EOSINOPHILS % 2.2 % (0.0-5.0); HEMATOCRIT. 26.8 % (42.0-52.0); HEMOGLOBIN. 8.8 g/dL (14.0-18.0); LYMPHOCYTES % 11.7 % (20.0-50.0); MEAN CORPUSCULAR HEMOGLOBIN 28.2 pg (28.0-32.0); MEAN CORPUSCULAR VOLUME 85.4 fL (80.0-94.0); MEAN PLATELET VOLUME 8.1 fl (7.4-10.4); MONOCYTES % 10.5 % (2.0-8.0); NEUTROPHILS % 74.7 % (40.0-76.0); PLATELET 181 x1000/uL (130-400); RED BLOOD CELL COUNT 3.14 mill/uL (4.7-6.1)
[2018-03-21] MEDS: LEVETIRACETAM 500MG TABLET PO SCH ×2 (10:27→21:38)
[2018-03-21] MEDS: SEVELAMER CARBONATE 800 MG TABLET PO SCH ×3 (10:27→17:22)
[2018-03-21] MEDS: LABETALOL HCL 300MG TABLET PO SCH ×2 (10:30→21:37)
[2018-03-21] MEDS: HYDROCODONE/ACETAMINOPHEN 10/325MG TABLET PO PRN ×2 (10:31→17:23)
[2018-03-21] MEDS: FUROSEMIDE 80MG TABLET PO SCH ×2 (10:31→17:22)
[2018-03-21] MEDS: AMLODIPINE 5MG TABLET PO SCH ×2 (10:32→21:38)
[2018-03-21] MEDS ORDERED: IPRATROPIUM/ALBUTEROL 0.5-3(2.5)MG/3ML NEB HHN PRN (12:45)
[2018-03-21] MEDS: IPRATROPIUM/ALBUTEROL 0.5-3(2.5)MG/3ML NEB HHN SCH (20:38)
[2018-03-21] MEDS: BUDESONIDE 0.5MG/2ML NEB HHN SCH (20:38)
[2018-03-21] MEDS: ZOLPIDEM TARTRATE 5MG TABLET PO PRN (21:37)
[2018-03-22] VITALS (12 sets, daily range): BP systolic 127–155; BP diastolic 72–100
[2018-03-22] MEDS: IPRATROPIUM/ALBUTEROL 0.5-3(2.5)MG/3ML NEB HHN SCH ×4 (02:15→20:05)
[2018-03-22] MEDS: HYDRALAZINE HCL 100MG TABLET PO SCH ×3 (02:45→17:01)
[2018-03-22] MEDS: HYDROCODONE/ACETAMINOPHEN 10/325MG TABLET PO PRN ×3 (02:51→20:36)
[2018-03-22 06:33] LABS: BASOPHILS % 0.8 % (0.0-2.0); EOSINOPHILS % 3.1 % (0.0-5.0); HEMATOCRIT. 24.3 % (42.0-52.0); LYMPHOCYTES % 16.1 % (20.0-50.0); MEAN CORPUSCULAR HEMOGLOBIN 28.1 pg (28.0-32.0); MEAN CORPUSCULAR VOLUME 85.5 fL (80.0-94.0); MEAN PLATELET VOLUME 7.9 fl (7.4-10.4); MONOCYTES % 9.9 % (2.0-8.0); NEUTROPHILS % 70.1 % (40.0-76.0); PLATELET 169 x1000/uL (130-400); RED BLOOD CELL COUNT 2.84 mill/uL (4.7-6.1); RED CELL DISTRIBUTION WIDTH 18.4 % (11.6-14.6)
[2018-03-22] MEDS: DIPHENHYDRAMINE 50MG/ML VIAL IV PRN ×2 (07:50→16:54)
[2018-03-22] MEDS: BUDESONIDE 0.5MG/2ML NEB HHN SCH ×2 (09:31→20:05)
[2018-03-22] MEDS: LEVETIRACETAM 500MG TABLET PO SCH ×2 (10:38→20:35)
[2018-03-22] MEDS: FUROSEMIDE 80MG TABLET PO SCH ×2 (10:38→17:05)
[2018-03-22] MEDS: SEVELAMER CARBONATE 800 MG TABLET PO SCH ×3 (10:38→17:01)
[2018-03-22] MEDS: AMLODIPINE 5MG TABLET PO SCH ×2 (10:39→20:36)
[2018-03-22] MEDS: LABETALOL HCL 300MG TABLET PO SCH ×2 (10:39→20:37)
[2018-03-22] MEDS: GUAIFENESIN-DM 200MG-20MG/10ML UDC PO PRN ×2 (13:32→20:35)
[2018-03-22] MEDS ORDERED: AMLO5TAB88 PO (18:00)
[2018-03-22] MEDS ORDERED: LABE300T3 PO (18:00)
[2018-03-22] MEDS ORDERED: HYDR100T26 PO (18:00)
[2018-03-22] MEDS: ZOLPIDEM TARTRATE 5MG TABLET PO PRN (20:35)
[2018-03-22] MEDS: ONDANSETRON HCL 4MG/2ML INJ IV PRN (20:37)
[2018-03-23] VITALS (10 sets, daily range): BP systolic 133–160; BP diastolic 61–96
[2018-03-23] MEDS: DIPHENHYDRAMINE 50MG/ML VIAL IV PRN ×3 (00:26→17:36)
[2018-03-23] MEDS: HYDRALAZINE HCL 100MG TABLET PO SCH ×3 (01:02→17:38)
[2018-03-23] MEDS: IPRATROPIUM/ALBUTEROL 0.5-3(2.5)MG/3ML NEB HHN SCH ×4 (02:01→20:06)
[2018-03-23] MEDS: ONDANSETRON HCL 4MG/2ML INJ IV PRN (06:27)
[2018-03-23] MEDS: GUAIFENESIN-DM 200MG-20MG/10ML UDC PO PRN ×2 (06:27→20:36)
[2018-03-23] MEDS: HYDROCODONE/ACETAMINOPHEN 10/325MG TABLET PO PRN ×2 (06:28→14:18)
[2018-03-23 07:12] LABS: EOSINOPHILS % 3.2 % (0.0-5.0); LYMPHOCYTES % 16.1 % (20.0-50.0); MEAN CORPUSCULAR HEMOGLOBIN 28.3 pg (28.0-32.0); MONOCYTES % 10.4 % (2.0-8.0); NEUTROPHILS % 69.3 % (40.0-76.0); PLATELET 190 x1000/uL (130-400); RED BLOOD CELL COUNT 3.37 mill/uL (4.7-6.1); RED CELL DISTRIBUTION WIDTH 17.7 % (11.6-14.6)
[2018-03-23 07:15] LABS: HEMATOCRIT. 28.3 % (42.0-52.0); HEMOGLOBIN. 9.5 g/dL (14.0-18.0)
[2018-03-23] MEDS: LEVETIRACETAM 500MG TABLET PO SCH ×2 (09:36→23:00)
[2018-03-23] MEDS: SEVELAMER CARBONATE 800 MG TABLET PO SCH ×3 (09:36→17:39)
[2018-03-23] MEDS: AMLODIPINE 5MG TABLET PO SCH ×2 (09:36→23:01)
[2018-03-23] MEDS: FUROSEMIDE 80MG TABLET PO SCH ×2 (09:37→17:00)
[2018-03-23] MEDS: LABETALOL HCL 300MG TABLET PO SCH ×2 (09:50→23:01)
[2018-03-23] MEDS: BUDESONIDE 0.5MG/2ML NEB HHN SCH (14:53)
[2018-03-23] MEDS ORDERED: HEPARIN SODIUM 1,000 UNIT/1ML VIAL IV NR (19:45)
[2018-03-23] MEDS: ZOLPIDEM TARTRATE 5MG TABLET PO PRN (23:02)
[2018-03-24] VITALS (12 sets, daily range): BP systolic 114–168; BP diastolic 70–146
[2018-03-24] MEDS: IPRATROPIUM/ALBUTEROL 0.5-3(2.5)MG/3ML NEB HHN SCH ×2 (01:13→01:30)
[2018-03-24] MEDS: DIPHENHYDRAMINE 50MG/ML VIAL IV PRN ×4 (01:57→23:47)
[2018-03-24] MEDS: HYDRALAZINE HCL 100MG TABLET PO SCH ×3 (04:51→17:15)
[2018-03-24 06:08] LABS: BASOPHILS % 1.5 % (0.0-2.0); HEMATOCRIT. 29.6 % (42.0-52.0); HEMOGLOBIN. 9.7 g/dL (14.0-18.0); LYMPHOCYTES % 16.2 % (20.0-50.0); MEAN CORPUSCULAR VOLUME 85.5 fL (80.0-94.0); NEUTROPHILS % 65.3 % (40.0-76.0); PLATELET 178 x1000/uL (130-400); RED BLOOD CELL COUNT 3.46 mill/uL (4.7-6.1); RED CELL DISTRIBUTION WIDTH 17.6 % (11.6-14.6)
[2018-03-24] MEDS: LABETALOL HCL 300MG TABLET PO SCH ×2 (08:29→21:50)
[2018-03-24] MEDS: LEVETIRACETAM 500MG TABLET PO SCH ×2 (08:29→21:49)
[2018-03-24] MEDS: AMLODIPINE 5MG TABLET PO SCH ×2 (08:29→21:49)
[2018-03-24] MEDS: FUROSEMIDE 80MG TABLET PO SCH ×2 (08:30→17:15)
[2018-03-24] MEDS: SEVELAMER CARBONATE 800 MG TABLET PO SCH ×3 (09:32→17:15)
[2018-03-24] MEDS ORDERED: GUAIFENESIN-DM 200MG-20MG/10ML UDC PO PRN (10:15)
[2018-03-24] MEDS: HYDROCODONE/ACETAMINOPHEN 10/325MG TABLET PO PRN (15:04)
[2018-03-24] MEDS: ZOLPIDEM TARTRATE 5MG TABLET PO PRN (21:50)
[2018-03-24] MEDS: GUAIFENESIN-DM 200MG-20MG/10ML UDC PO PRN (23:47)
[2018-03-25] VITALS (9 sets, daily range): BP systolic 118–163; BP diastolic 64–102
[2018-03-25] MEDS: HYDRALAZINE HCL 100MG TABLET PO SCH ×3 (01:21→17:28)
[2018-03-25] MEDS: SEVELAMER CARBONATE 800 MG TABLET PO SCH ×3 (07:52→17:28)
[2018-03-25 08:01] LABS: EOSINOPHILS % 3.4 % (0.0-5.0); HEMATOCRIT. 27.8 % (42.0-52.0); HEMOGLOBIN. 9.3 g/dL (14.0-18.0); LYMPHOCYTES % 17.3 % (20.0-50.0); MEAN CORPUSCULAR HEMOGLOBIN 28.8 pg (28.0-32.0); MEAN CORPUSCULAR VOLUME 85.9 fL (80.0-94.0); MONOCYTES % 13.7 % (2.0-8.0); NEUTROPHILS % 64.6 % (40.0-76.0); PLATELET 161 x1000/uL (130-400); RED BLOOD CELL COUNT 3.24 mill/uL (4.7-6.1); RED CELL DISTRIBUTION WIDTH 17.7 % (11.6-14.6)
[2018-03-25] MEDS: DIPHENHYDRAMINE 50MG/ML VIAL IV PRN ×2 (08:24→17:28)
[2018-03-25] MEDS: FUROSEMIDE 80MG TABLET PO SCH ×2 (08:24→17:28)
[2018-03-25] MEDS: AMLODIPINE 5MG TABLET PO SCH ×2 (08:24→21:31)
[2018-03-25] MEDS: LEVETIRACETAM 500MG TABLET PO SCH ×2 (08:24→21:30)
[2018-03-25] MEDS: GUAIFENESIN-DM 200MG-20MG/10ML UDC PO PRN ×3 (08:24→21:30)
[2018-03-25] MEDS: LABETALOL HCL 300MG TABLET PO SCH ×2 (08:25→21:32)
[2018-03-25] MEDS: IPRATROPIUM/ALBUTEROL 0.5-3(2.5)MG/3ML NEB HHN SCH ×2 (14:50→20:27)
[2018-03-25] MEDS: ZOLPIDEM TARTRATE 5MG TABLET PO PRN (21:32)
[2018-03-25] MEDS: ONDANSETRON HCL 4MG/2ML INJ IV PRN (22:36)
[2018-03-26] VITALS (9 sets, daily range): BP systolic 106–182; BP diastolic 79–109
[2018-03-26] MEDS: IPRATROPIUM/ALBUTEROL 0.5-3(2.5)MG/3ML NEB HHN SCH ×3 (00:55→20:15)
[2018-03-26] MEDS: DIPHENHYDRAMINE 50MG/ML VIAL IV PRN ×3 (01:08→17:49)
[2018-03-26] MEDS: HYDRALAZINE HCL 100MG TABLET PO SCH ×3 (01:09→17:42)
[2018-03-26 08:57] LABS: HEMOGLOBIN. 9.4 g/dL (14.0-18.0); MEAN CORPUSCULAR HEMOGLOBIN 28.3 pg (28.0-32.0); MEAN CORPUSCULAR VOLUME 84.4 fL (80.0-94.0); MEAN PLATELET VOLUME 7.6 fl (7.4-10.4); PLATELET 156 x1000/uL (130-400); RED BLOOD CELL COUNT 3.32 mill/uL (4.7-6.1); RED CELL DISTRIBUTION WIDTH 17.8 % (11.6-14.6)
[2018-03-26] MEDS: LEVETIRACETAM 500MG TABLET PO SCH ×2 (09:11→22:03)
[2018-03-26] MEDS: SEVELAMER CARBONATE 800 MG TABLET PO SCH ×3 (09:11→19:17)
[2018-03-26] MEDS: AMLODIPINE 5MG TABLET PO SCH ×2 (09:12→22:02)
[2018-03-26] MEDS: FUROSEMIDE 80MG TABLET PO SCH ×2 (09:12→17:42)
[2018-03-26] MEDS: LABETALOL HCL 300MG TABLET PO SCH ×2 (09:12→22:03)
[2018-03-26 09:36] LABS: PLATELET ESTIMATE NORMAL
[2018-03-26] MEDS: HYDROCODONE/ACETAMINOPHEN 5/325MG TABLET PO PRN (11:41)
[2018-03-26] MEDS: GUAIFENESIN-DM 200MG-20MG/10ML UDC PO PRN (22:02)
[2018-03-26] MEDS: CLONIDINE 0.2MG TABLET PO PRN (22:03)
[2018-03-27] VITALS (11 sets, daily range): BP systolic 110–149; BP diastolic 64–109
[2018-03-27] MEDS: IPRATROPIUM/ALBUTEROL 0.5-3(2.5)MG/3ML NEB HHN SCH ×4 (01:57→20:15)
[2018-03-27] MEDS: DIPHENHYDRAMINE 50MG/ML VIAL IV PRN ×3 (02:15→21:09)
[2018-03-27] MEDS: HYDRALAZINE HCL 100MG TABLET PO SCH ×3 (02:20→18:17)
[2018-03-27] MEDS: SEVELAMER CARBONATE 800 MG TABLET PO SCH ×3 (08:50→18:17)
[2018-03-27] MEDS: FUROSEMIDE 80MG TABLET PO SCH ×2 (08:57→16:18)
[2018-03-27] MEDS: LABETALOL HCL 300MG TABLET PO SCH ×2 (08:57→21:09)
[2018-03-27] MEDS: AMLODIPINE 5MG TABLET PO SCH ×2 (08:57→21:09)
[2018-03-27] MEDS: LEVETIRACETAM 500MG TABLET PO SCH ×2 (08:57→21:09)
[2018-03-27] MEDS: GUAIFENESIN-DM 200MG-20MG/10ML UDC PO PRN (08:57)
[2018-03-27] MEDS ORDERED: HEPARIN SODIUM 1,000 UNIT/1ML VIAL IV SCH (11:30)
[2018-03-27 13:06] LABS: HEMATOCRIT 29.7 % (42.0-52.0); HEMOGLOBIN 9.8 g/dL (14.0-18.0); MEAN CORPUSCULAR HEMOGLOBIN 27.6 pg (28.0-32.0); MEAN CORPUSCULAR VOLUME 83.9 fL (80.0-94.0); PLATELET 174 x1000/uL (130-400); RED BLOOD CELL COUNT 3.54 mill/uL (4.7-6.1); RED CELL DISTRIBUTION WIDTH 17.8 % (11.6-14.6)
[2018-03-27] MEDS: ONDANSETRON HCL 4MG/2ML INJ IV PRN (16:18)
[2018-03-27] MEDS: ZOLPIDEM TARTRATE 5MG TABLET PO PRN (21:09)
[2018-03-27] MEDS: HYDROCODONE/ACETAMINOPHEN 5/325MG TABLET PO PRN (21:17)
[2018-03-28] VITALS: BP 125/76
[2018-03-28] MEDS: IPRATROPIUM/ALBUTEROL 0.5-3(2.5)MG/3ML NEB HHN SCH ×4 (01:42→20:29)
[2018-03-28] MEDS: HYDRALAZINE HCL 100MG TABLET PO SCH ×3 (01:46→17:40)
[2018-03-28] MEDS: GUAIFENESIN-DM 200MG-20MG/10ML UDC PO PRN ×2 (01:54→08:52)
[2018-03-28 04:00] VITALS: BP 146/93
[2018-03-28 08:00] VITALS: BP 155/100
[2018-03-28] MEDS: SEVELAMER CARBONATE 800 MG TABLET PO SCH ×3 (08:52→18:07)
[2018-03-28] MEDS: FUROSEMIDE 80MG TABLET PO SCH ×2 (08:53→17:36)
[2018-03-28] MEDS: LABETALOL HCL 300MG TABLET PO SCH ×2 (08:53→20:35)
[2018-03-28] MEDS: LEVETIRACETAM 500MG TABLET PO SCH ×2 (08:53→20:34)
[2018-03-28] MEDS: AMLODIPINE 5MG TABLET PO SCH ×2 (08:53→20:35)
[2018-03-28] MEDS: DIPHENHYDRAMINE 50MG/ML VIAL IV PRN ×2 (08:59→17:36)
[2018-03-28 12:00] VITALS: BP 114/76
[2018-03-28 16:00] VITALS: BP 121/89
[2018-03-28] MEDS ORDERED: HEPARIN SODIUM 1,000 UNIT/1ML VIAL IV NR (16:00)
[2018-03-28 20:00] VITALS: BP 146/81
[2018-03-28] MEDS: HYDROCODONE/ACETAMINOPHEN 5/325MG TABLET PO PRN (20:36)
[2018-03-29] VITALS (11 sets, daily range): BP systolic 131–157; BP diastolic 62–100
[2018-03-29] MEDS: ZOLPIDEM TARTRATE 5MG TABLET PO PRN ×2 (00:53→23:19)
[2018-03-29] MEDS: DIPHENHYDRAMINE 50MG/ML VIAL IV PRN ×3 (00:53→16:51)
[2018-03-29] MEDS: HYDRALAZINE HCL 100MG TABLET PO SCH ×3 (00:53→16:51)
[2018-03-29] MEDS: IPRATROPIUM/ALBUTEROL 0.5-3(2.5)MG/3ML NEB HHN SCH ×4 (02:00→22:02)
[2018-03-29] MEDS: LEVETIRACETAM 500MG TABLET PO SCH ×2 (08:34→20:38)
[2018-03-29] MEDS: FUROSEMIDE 80MG TABLET PO SCH ×2 (08:34→16:51)
[2018-03-29] MEDS: SEVELAMER CARBONATE 800 MG TABLET PO SCH ×3 (08:34→16:51)
[2018-03-29] MEDS: AMLODIPINE 5MG TABLET PO SCH ×2 (08:34→20:51)
[2018-03-29] MEDS: LABETALOL HCL 300MG TABLET PO SCH ×2 (08:35→20:39)
[2018-03-29] MEDS: HYDROCODONE/ACETAMINOPHEN 5/325MG TABLET PO PRN (20:53)
[2018-03-30 00:06] VITALS: BP 139/94
[2018-03-30] MEDS: DIPHENHYDRAMINE 50MG/ML VIAL IV PRN ×3 (00:49→16:54)
[2018-03-30] MEDS: HYDRALAZINE HCL 100MG TABLET PO SCH ×3 (01:00→18:34)
[2018-03-30 04:00] VITALS: BP 142/98
[2018-03-30] MEDS: IPRATROPIUM/ALBUTEROL 0.5-3(2.5)MG/3ML NEB HHN SCH ×4 (04:30→21:01)
[2018-03-30] MEDS: SEVELAMER CARBONATE 800 MG TABLET PO SCH ×3 (08:59→18:34)
[2018-03-30] MEDS: LEVETIRACETAM 500MG TABLET PO SCH ×2 (08:59→21:29)
[2018-03-30] MEDS: LABETALOL HCL 300MG TABLET PO SCH ×2 (08:59→21:29)
[2018-03-30] MEDS: FUROSEMIDE 80MG TABLET PO SCH ×2 (09:00→16:54)
[2018-03-30] MEDS: AMLODIPINE 5MG TABLET PO SCH ×2 (09:06→21:30)
[2018-03-30 12:14] VITALS: BP 133/90
[2018-03-30 16:00] VITALS: BP 136/93
[2018-03-30 18:13] VITALS: BP 129/73
[2018-03-30 20:00] VITALS: BP 140/96
[2018-03-30] MEDS: HYDROCODONE/ACETAMINOPHEN 5/325MG TABLET PO PRN (23:39)
[2018-03-30] MEDS: ZOLPIDEM TARTRATE 5MG TABLET PO PRN (23:39)
[2018-03-31 00:11] VITALS: BP 137/80
[2018-03-31] MEDS: DIPHENHYDRAMINE 50MG/ML VIAL IV PRN ×2 (01:44→10:02)
[2018-03-31] MEDS: IPRATROPIUM/ALBUTEROL 0.5-3(2.5)MG/3ML NEB HHN SCH ×2 (01:50→09:30)
[2018-03-31] MEDS: HYDRALAZINE HCL 100MG TABLET PO SCH ×2 (04:15→09:11)
[2018-03-31 06:50] LABS: EOSINOPHILS % 5.1 % (0.0-5.0); HEMATOCRIT. 25.5 % (42.0-52.0); HEMOGLOBIN. 8.8 g/dL (14.0-18.0); LYMPHOCYTES % 21.4 % (20.0-50.0); MEAN CORPUSCULAR HEMOGLOBIN 28.5 pg (28.0-32.0); MEAN CORPUSCULAR VOLUME 83.1 fL (80.0-94.0); MEAN PLATELET VOLUME 7.9 fl (7.4-10.4); MONOCYTES % 11.1 % (2.0-8.0); NEUTROPHILS % 61.4 % (40.0-76.0); PLATELET 153 x1000/uL (130-400); RED BLOOD CELL COUNT 3.07 mill/uL (4.7-6.1); RED CELL DISTRIBUTION WIDTH 16.8 % (11.6-14.6)
[2018-03-31] MEDS: SEVELAMER CARBONATE 800 MG TABLET PO SCH ×2 (09:11→12:34)
[2018-03-31] MEDS: FUROSEMIDE 80MG TABLET PO SCH (09:11)
[2018-03-31] MEDS: HYDROCODONE/ACETAMINOPHEN 5/325MG TABLET PO PRN (09:11)
[2018-03-31] MEDS: LEVETIRACETAM 500MG TABLET PO SCH (09:11)
[2018-03-31] MEDS: AMLODIPINE 5MG TABLET PO SCH (09:12)
[2018-03-31] MEDS: LABETALOL HCL 300MG TABLET PO SCH (09:12)
[2018-03-31 13:06] VITALS: BP 140/92
== END 2018-03-31 15:17 | disposition home or self-care (01) | DRG 194 ==
LOC: ER 19:30 → 5EST 03-20 02:01 → EDBEDREQ 03-20 02:07 → EDBEDREQTM 03-20 02:07 → EDBEDREQSVC 03-20 02:07 → ENRESERV 03-20 07:05 → 6WST 03-29 17:29
PROVIDERS: ADMIT Internal Medicine; ATTEND Internal Medicine
PROC: 5A1D70Z Performance of Urinary Filtration, Intermittent, Less than 6 Hours Per Day (ICD-10-PCS; 2018-03-20)
PROC: 5A1D70Z Performance of Urinary Filtration, Intermittent, Less than 6 Hours Per Day (ICD-10-PCS; 2018-03-22)
PROC: 5A1D70Z Performance of Urinary Filtration, Intermittent, Less than 6 Hours Per Day (ICD-10-PCS; 2018-03-23)
PROC: 5A1D70Z Performance of Urinary Filtration, Intermittent, Less than 6 Hours Per Day (ICD-10-PCS; 2018-03-25)
PROC: 5A1D70Z Performance of Urinary Filtration, Intermittent, Less than 6 Hours Per Day (ICD-10-PCS; 2018-03-27)
PROC: 5A1D70Z Performance of Urinary Filtration, Intermittent, Less than 6 Hours Per Day (ICD-10-PCS; 2018-03-28)
PROC: 5A1D70Z Performance of Urinary Filtration, Intermittent, Less than 6 Hours Per Day (ICD-10-PCS; principal; 2018-03-31)
DX: I13.2 Hypertensive heart and chronic kidney disease with heart failure and with stage 5 chronic kidney disease, or end stage renal disease (principal); J96.00 Acute respiratory failure, unspecified whether with hypoxia or hypercapnia; E87.5 Hyperkalemia; N18.6 End stage renal disease; I07.1 Rheumatic tricuspid insufficiency; E87.1 Hypo-osmolality and hyponatremia; I27.20 Pulmonary hypertension, unspecified; I50.33 Acute on chronic diastolic (congestive) heart failure; J81.0 Acute pulmonary edema; I24.8 Other forms of acute ischemic heart disease; D63.1 Anemia in chronic kidney disease; E78.00 Pure hypercholesterolemia, unspecified; E78.5 Hyperlipidemia, unspecified; G40.909 Epilepsy, unspecified, not intractable, without status epilepticus; Z99.2 Dependence on renal dialysis; F17.210 Nicotine dependence, cigarettes, uncomplicated; I16.0 Hypertensive urgency; M19.012 Primary osteoarthritis, left shoulder; F16.10 Hallucinogen abuse, uncomplicated; Z91.19 Patient's noncompliance with other medical treatment and regimen; E55.9 Vitamin D deficiency, unspecified; F14.10 Cocaine abuse, uncomplicated; Z91.15 Patient's noncompliance with renal dialysis; Z82.49 Family history of ischemic heart disease and other diseases of the circulatory system; Z87.820 Personal history of traumatic brain injury; Z91.14 Patient's other noncompliance with medication regimen; T82.43XA Leakage of vascular dialysis catheter, initial encounter; Y83.8 Other surgical procedures as the cause of abnormal reaction of the patient, or of later complication, without mention of misadventure at the time of the procedure; Y92.89 Other specified places as the place of occurrence of the external cause
CPT/HCPCS: 36415; 71045; 80048; 82962; 83880; 84132; 84484; 85027; 87804; 93005; 94640; 94644; 96374; 99291; C1893; J0360; J1200; J1644; J1815; J2405; J3010; J3490; J7611; J7620; J7626; Q0163

== ENCOUNTER 2018-04-18 08:41 | Inpatient (IN) | payer MEDICAID ==
[~2018-04-18] VITALS: Ht 170.2 cm; Wt 71.2 kg
[~2018-04-18 08:41] MED LIST changes: +AMLO5TAB88 PO; -CLIN-123 PO; -HYDR-4135 PO; +HYDR100T26 PO; -LABE100T5 PO; +LABE300T3 PO
[2018-04-18] MEDS ORDERED: ASPIRIN 81MG TABLET PO ONE (10:15)
[2018-04-18 11:08] LABS: HEMATOCRIT. 24.8 % (42.0-52.0); HEMOGLOBIN. 8.3 g/dL (14.0-18.0); MEAN CORPUSCULAR HEMOGLOBIN 28.1 pg (28.0-32.0); MEAN CORPUSCULAR VOLUME 84.1 fL (80.0-94.0); MEAN PLATELET VOLUME 7.2 fl (7.4-10.4); PLATELET 166 x1000/uL (130-400); RED BLOOD CELL COUNT 2.95 mill/uL (4.7-6.1); RED CELL DISTRIBUTION WIDTH 19.6 % (11.6-14.6)
[2018-04-18 11:13] LABS: CHLORIDE 101 mEq/L (98-107)
[2018-04-18 12:26] LABS: PLATELET ESTIMATE NORMAL
[2018-04-18] MEDS ORDERED: NITROGLYCERIN 0.4MG TABLET SL SL ONE (12:30)
[2018-04-18] MEDS ORDERED: LABETALOL HCL 20MG/4ML CARPUJECT IV ONE (13:15)
[2018-04-18] MEDS ORDERED: ONDANSETRON HCL 4MG/2ML INJ IV PRN (15:00)
[2018-04-18] MEDS ORDERED: DIPHENHYDRAMINE 50MG/ML VIAL IV PRN (15:00)
[2018-04-18] MEDS ORDERED: IPRATROPIUM/ALBUTEROL 0.5-3(2.5)MG/3ML NEB INH PRN (15:00)
[2018-04-18 17:40] VITALS: BP 186/115
[2018-04-18 19:40] VITALS: BP 187/124
[2018-04-18] MEDS: CLONIDINE 0.1MG TABLET PO PRN (19:50)
[2018-04-18] MEDS: HYDROCODONE/ACETAMINOPHEN 5/325MG TABLET PO PRN (19:50)
[2018-04-18] MEDS: AMLODIPINE 5MG TABLET PO SCH (19:50)
[2018-04-18] MEDS: LEVETIRACETAM 500MG TABLET PO SCH (19:50)
[2018-04-19 01:00] VITALS: BP 165/109
[2018-04-19] MEDS: ZOLPIDEM TARTRATE 5MG TABLET PO PRN ×2 (01:06→21:38)
[2018-04-19 05:15] VITALS: BP 197/132
[2018-04-19] MEDS: CLONIDINE 0.1MG TABLET PO PRN ×2 (05:27→15:28)
[2018-04-19] MEDS: DIPHENHYDRAMINE 50MG CAPSULE PO PRN ×3 (05:28→19:44)
[2018-04-19 08:00] VITALS: BP 163/109
[2018-04-19 08:20] LABS: HEMATOCRIT. 24.1 % (42.0-52.0); HEMOGLOBIN. 8.1 g/dL (14.0-18.0); MEAN CORPUSCULAR HEMOGLOBIN 28.5 pg (28.0-32.0); MEAN CORPUSCULAR VOLUME 84.7 fL (80.0-94.0); MEAN PLATELET VOLUME 7.8 fl (7.4-10.4); PLATELET 172 x1000/uL (130-400); RED BLOOD CELL COUNT 2.85 mill/uL (4.7-6.1); RED CELL DISTRIBUTION WIDTH 18.6 % (11.6-14.6)
[2018-04-19] MEDS: AMLODIPINE 5MG TABLET PO SCH (09:25)
[2018-04-19] MEDS: LEVETIRACETAM 500MG TABLET PO SCH ×2 (09:25→21:38)
[2018-04-19 12:00] VITALS: BP 176/106
[2018-04-19] MEDS: HYDROCODONE/ACETAMINOPHEN 5/325MG TABLET PO PRN ×2 (15:27→21:46)
[2018-04-19 15:34] VITALS: BP 175/120
[2018-04-19 16:08] LABS: PLATELET ESTIMATE NORMAL
[2018-04-19 20:00] VITALS: BP 158/102
[2018-04-19] MEDS: DILTIAZEM HCL 90MG TABLET PO SCH (21:37)
[2018-04-19] MEDS: EPOETIN ALFA 10000UNITS/ML VIAL SUBCUT SCH (21:38)
[2018-04-19] MEDS: CLONIDINE 0.2MG TABLET PO SCH (21:38)
[2018-04-20 04:00] VITALS: BP 138/71
[2018-04-20] MEDS: DILTIAZEM HCL 90MG TABLET PO SCH (06:31)
[2018-04-20 07:32] LABS: HEMATOCRIT. 24.4 % (42.0-52.0); HEMOGLOBIN. 8.1 g/dL (14.0-18.0); MEAN CORPUSCULAR VOLUME 84.7 fL (80.0-94.0); PLATELET 171 x1000/uL (130-400); RED BLOOD CELL COUNT 2.88 mill/uL (4.7-6.1); RED CELL DISTRIBUTION WIDTH 19.1 % (11.6-14.6)
[2018-04-20 08:00] VITALS: BP 124/81
[2018-04-20] MEDS: DIPHENHYDRAMINE 50MG CAPSULE PO PRN ×3 (09:51→23:22)
[2018-04-20] MEDS: LEVETIRACETAM 500MG TABLET PO SCH ×2 (09:51→21:24)
[2018-04-20 11:09] LABS: PLATELET ESTIMATE NORMAL
[2018-04-20 12:00] VITALS: BP 132/85
[2018-04-20] MEDS: DILTIAZEM HCL 300MG CAPSULE SR 24HR PO SCH (12:33)
[2018-04-20] MEDS: HYDROCODONE/ACETAMINOPHEN 5/325MG TABLET PO PRN ×2 (12:45→21:30)
[2018-04-20 16:00] VITALS: BP 129/64
[2018-04-20 20:00] VITALS: BP 150/105
[2018-04-20] MEDS: ZOLPIDEM TARTRATE 5MG TABLET PO PRN (21:24)
[2018-04-20] MEDS: CLONIDINE 0.2MG TABLET PO SCH (21:25)
[2018-04-21 04:00] VITALS: BP 140/95
[2018-04-21] MEDS: DIPHENHYDRAMINE 50MG CAPSULE PO PRN ×3 (07:07→21:19)
[2018-04-21 07:16] LABS: BASOPHILS % 1.2 % (0.0-2.0); EOSINOPHILS % 2.8 % (0.0-5.0); HEMATOCRIT. 23.8 % (42.0-52.0); HEMOGLOBIN. 7.9 g/dL (14.0-18.0); LYMPHOCYTES % 24.6 % (20.0-50.0); MEAN CORPUSCULAR HEMOGLOBIN 27.8 pg (28.0-32.0); MEAN CORPUSCULAR VOLUME 83.6 fL (80.0-94.0); MONOCYTES % 13.3 % (2.0-8.0); NEUTROPHILS % 58.1 % (40.0-76.0); PLATELET 186 x1000/uL (130-400); RED BLOOD CELL COUNT 2.85 mill/uL (4.7-6.1); RED CELL DISTRIBUTION WIDTH 18.6 % (11.6-14.6)
[2018-04-21 08:00] VITALS: BP 149/105
[2018-04-21] MEDS ORDERED: HEPARIN SODIUM 1,000 UNIT/1ML VIAL IV NR (09:45)
[2018-04-21 11:39] VITALS: BP 146/96
[2018-04-21] MEDS: LEVETIRACETAM 500MG TABLET PO SCH ×2 (11:45→21:18)
[2018-04-21] MEDS: DILTIAZEM HCL 300MG CAPSULE SR 24HR PO SCH (11:47)
[2018-04-21] MEDS: LOSARTAN POTASSIUM 50 MG TABLET PO SCH (13:13)
[2018-04-21 16:01] VITALS: BP 156/93
[2018-04-21 20:00] VITALS: BP 156/99
[2018-04-21] MEDS: HYDROCODONE/ACETAMINOPHEN 5/325MG TABLET PO PRN (21:19)
[2018-04-21] MEDS: EPOETIN ALFA 10000UNITS/ML VIAL SUBCUT SCH (21:20)
[2018-04-21] MEDS: ZOLPIDEM TARTRATE 5MG TABLET PO PRN (22:21)
[2018-04-21] MEDS: CLONIDINE 0.2MG TABLET PO SCH (22:21)
[2018-04-22] VITALS: BP 129/86
[2018-04-22 04:00] VITALS: BP 159/107
[2018-04-22] MEDS: CLONIDINE 0.1MG TABLET PO PRN ×2 (05:27→17:55)
[2018-04-22 08:00] VITALS: BP 158/107
[2018-04-22 10:00] LABS: BASOPHILS % 1.3 % (0.0-2.0); EOSINOPHILS % 3.9 % (0.0-5.0); HEMATOCRIT. 26.9 % (42.0-52.0); HEMOGLOBIN. 8.9 g/dL (14.0-18.0); LYMPHOCYTES % 23.5 % (20.0-50.0); MEAN CORPUSCULAR HEMOGLOBIN 27.8 pg (28.0-32.0); MEAN CORPUSCULAR VOLUME 83.8 fL (80.0-94.0); MEAN PLATELET VOLUME 7.8 fl (7.4-10.4); MONOCYTES % 14.5 % (2.0-8.0); NEUTROPHILS % 56.8 % (40.0-76.0); PLATELET 217 x1000/uL (130-400); RED BLOOD CELL COUNT 3.21 mill/uL (4.7-6.1)
[2018-04-22] MEDS: DIPHENHYDRAMINE 50MG CAPSULE PO PRN ×2 (10:23→18:01)
[2018-04-22] MEDS: DILTIAZEM HCL 300MG CAPSULE SR 24HR PO SCH (10:24)
[2018-04-22] MEDS: LEVETIRACETAM 500MG TABLET PO SCH ×2 (10:24→21:23)
[2018-04-22] MEDS: LOSARTAN POTASSIUM 50 MG TABLET PO SCH (10:24)
[2018-04-22] MEDS: HYDROCODONE/ACETAMINOPHEN 5/325MG TABLET PO PRN ×2 (11:50→21:27)
[2018-04-22] MEDS ORDERED: SODIUM POLYSTYRENE SULFONATE 15 G/60 ML BOT PO NR (13:30)
[2018-04-22 16:00] VITALS: BP 196/100
[2018-04-22 20:00] VITALS: BP 157/104
[2018-04-22] MEDS: CLONIDINE 0.2MG TABLET PO SCH (21:23)
[2018-04-22] MEDS: ZOLPIDEM TARTRATE 5MG TABLET PO PRN (21:27)
[2018-04-23] MEDS: DIPHENHYDRAMINE 50MG CAPSULE PO PRN ×3 (00:04→21:10)
[2018-04-23 00:49] VITALS: BP 137/94
[2018-04-23 04:00] VITALS: BP 171/90
[2018-04-23] MEDS: CLONIDINE 0.1MG TABLET PO PRN (04:52)
[2018-04-23 07:32] LABS: HEMATOCRIT. 26.7 % (42.0-52.0); LYMPHOCYTES % 13.7 % (20.0-50.0); MEAN CORPUSCULAR HEMOGLOBIN 28.1 pg (28.0-32.0); MEAN PLATELET VOLUME 7.6 fl (7.4-10.4); MONOCYTES % 13.5 % (2.0-8.0); NEUTROPHILS % 68.8 % (40.0-76.0); PLATELET 200 x1000/uL (130-400); RED BLOOD CELL COUNT 3.21 mill/uL (4.7-6.1); RED CELL DISTRIBUTION WIDTH 18.6 % (11.6-14.6)
[2018-04-23 08:00] VITALS: BP 164/98
[2018-04-23] MEDS: CLONIDINE 0.2MG TABLET PO SCH ×2 (09:00→20:41)
[2018-04-23 10:38] VITALS: BP 162/109
[2018-04-23] MEDS: LOSARTAN POTASSIUM 50 MG TABLET PO SCH (10:42)
[2018-04-23] MEDS: LEVETIRACETAM 500MG TABLET PO SCH ×2 (10:42→21:44)
[2018-04-23] MEDS: HYDROCODONE/ACETAMINOPHEN 5/325MG TABLET PO PRN (11:55)
[2018-04-23] MEDS: DILTIAZEM HCL 300MG CAPSULE SR 24HR PO SCH (15:58)
[2018-04-23 20:00] VITALS: BP 122/78
[2018-04-23] MEDS: HYDRALAZINE HCL 50MG TABLET PO SCH (21:10)
[2018-04-23] MEDS: ZOLPIDEM TARTRATE 5MG TABLET PO PRN (21:44)
[2018-04-23] MEDS: EPOETIN ALFA 10000UNITS/ML VIAL SUBCUT SCH (21:44)
[2018-04-24] VITALS (7 sets, daily range): BP systolic 110–158; BP diastolic 63–107
[2018-04-24] MEDS: HYDROCODONE/ACETAMINOPHEN 5/325MG TABLET PO PRN ×3 (01:37→17:50)
[2018-04-24] MEDS: DIPHENHYDRAMINE 50MG/ML VIAL IV PRN ×4 (03:05→21:09)
[2018-04-24] MEDS: HYDRALAZINE HCL 50MG TABLET PO SCH (05:44)
[2018-04-24] MEDS: LOSARTAN POTASSIUM 50 MG TABLET PO SCH (08:15)
[2018-04-24] MEDS: LEVETIRACETAM 500MG TABLET PO SCH ×2 (08:15→20:02)
[2018-04-24] MEDS: DILTIAZEM HCL 300MG CAPSULE SR 24HR PO SCH (08:15)
[2018-04-24] MEDS: CLONIDINE 0.2MG TABLET PO SCH ×2 (08:15→20:02)
[2018-04-24 08:17] LABS: BASOPHILS % 1.2 % (0.0-2.0); EOSINOPHILS % 3.3 % (0.0-5.0); HEMATOCRIT. 25.4 % (42.0-52.0); HEMOGLOBIN. 8.5 g/dL (14.0-18.0); LYMPHOCYTES % 23.5 % (20.0-50.0); MEAN CORPUSCULAR HEMOGLOBIN 27.9 pg (28.0-32.0); MEAN CORPUSCULAR VOLUME 83.5 fL (80.0-94.0); MEAN PLATELET VOLUME 7.9 fl (7.4-10.4); MONOCYTES % 13.2 % (2.0-8.0); NEUTROPHILS % 58.8 % (40.0-76.0); PLATELET 219 x1000/uL (130-400); RED BLOOD CELL COUNT 3.04 mill/uL (4.7-6.1); RED CELL DISTRIBUTION WIDTH 18.8 % (11.6-14.6)
[2018-04-24] MEDS: ZOLPIDEM TARTRATE 5MG TABLET PO PRN (20:02)
[2018-04-24] MEDS: HYDRALAZINE HCL 100MG TABLET PO SCH (23:40)
[2018-04-25] MEDS: DIPHENHYDRAMINE 50MG/ML VIAL IV PRN ×4 (03:05→20:18)
[2018-04-25 04:00] VITALS: BP 147/102
[2018-04-25 06:03] LABS: EOSINOPHILS % 2.7 % (0.0-5.0); HEMATOCRIT. 24.6 % (42.0-52.0); HEMOGLOBIN. 8.2 g/dL (14.0-18.0); LYMPHOCYTES % 24.7 % (20.0-50.0); MEAN CORPUSCULAR HEMOGLOBIN 28.1 pg (28.0-32.0); MEAN CORPUSCULAR VOLUME 84.1 fL (80.0-94.0); MEAN PLATELET VOLUME 7.6 fl (7.4-10.4); MONOCYTES % 12.2 % (2.0-8.0); NEUTROPHILS % 59.4 % (40.0-76.0); PLATELET 216 x1000/uL (130-400); RED BLOOD CELL COUNT 2.92 mill/uL (4.7-6.1)
[2018-04-25] MEDS: HYDRALAZINE HCL 100MG TABLET PO SCH ×4 (06:23→21:47)
[2018-04-25 08:00] VITALS: BP 103/53
[2018-04-25] MEDS: DILTIAZEM HCL 300MG CAPSULE SR 24HR PO SCH (08:57)
[2018-04-25] MEDS: CLONIDINE 0.2MG TABLET PO SCH ×2 (08:58→20:16)
[2018-04-25] MEDS: LOSARTAN POTASSIUM 100 MG TABLET PO SCH (08:58)
[2018-04-25] MEDS: LEVETIRACETAM 500MG TABLET PO SCH ×2 (08:58→20:17)
[2018-04-25] MEDS: HYDROCODONE/ACETAMINOPHEN 5/325MG TABLET PO PRN (08:59)
[2018-04-25 12:00] VITALS: BP 111/72
[2018-04-25] MEDS: HYDROCODONE/APAP 7.5/325MG 1 TAB TABLET PO PRN ×2 (14:29→18:51)
[2018-04-25 16:00] VITALS: BP 141/73
[2018-04-25 20:00] VITALS: BP 151/95
[2018-04-25] MEDS: ZOLPIDEM TARTRATE 5MG TABLET PO PRN (20:18)
[2018-04-26] VITALS: BP 158/95
[2018-04-26] MEDS: DIPHENHYDRAMINE 50MG/ML VIAL IV PRN ×5 (02:56→22:13)
[2018-04-26 04:00] VITALS: BP 171/110
[2018-04-26] MEDS: CLONIDINE 0.1MG TABLET PO PRN (05:29)
[2018-04-26] MEDS: HYDRALAZINE HCL 100MG TABLET PO SCH ×3 (05:34→20:53)
[2018-04-26 08:00] VITALS: BP 147/94
[2018-04-26 08:22] LABS: BASOPHILS % 1.2 % (0.0-2.0); EOSINOPHILS % 2.4 % (0.0-5.0); HEMOGLOBIN. 9.1 g/dL (14.0-18.0); LYMPHOCYTES % 21.3 % (20.0-50.0); MEAN CORPUSCULAR HEMOGLOBIN 28.5 pg (28.0-32.0); MEAN CORPUSCULAR VOLUME 84.8 fL (80.0-94.0); MEAN PLATELET VOLUME 7.7 fl (7.4-10.4); MONOCYTES % 14.9 % (2.0-8.0); NEUTROPHILS % 60.2 % (40.0-76.0); PLATELET 222 x1000/uL (130-400); RED BLOOD CELL COUNT 3.18 mill/uL (4.7-6.1)
[2018-04-26] MEDS: DILTIAZEM HCL 300MG CAPSULE SR 24HR PO SCH (08:37)
[2018-04-26] MEDS: CLONIDINE 0.2MG TABLET PO SCH ×2 (08:38→20:53)
[2018-04-26] MEDS: LOSARTAN POTASSIUM 100 MG TABLET PO SCH (08:38)
[2018-04-26] MEDS: HYDROCODONE/APAP 7.5/325MG 1 TAB TABLET PO PRN ×2 (08:38→20:53)
[2018-04-26] MEDS: LEVETIRACETAM 500MG TABLET PO SCH ×2 (08:38→20:53)
[2018-04-26 12:01] VITALS: BP 123/81
[2018-04-26 16:00] VITALS: BP 122/78
[2018-04-26 20:28] VITALS: BP 151/92
[2018-04-26] MEDS: ZOLPIDEM TARTRATE 5MG TABLET PO PRN (20:53)
[2018-04-26] MEDS: EPOETIN ALFA 10000UNITS/ML VIAL SUBCUT SCH (20:53)
[2018-04-27] MEDS: DIPHENHYDRAMINE 50MG/ML VIAL IV PRN ×2 (04:57→11:20)
[2018-04-27] MEDS: HYDRALAZINE HCL 100MG TABLET PO SCH ×2 (04:57→14:08)
[2018-04-27 08:00] VITALS: BP 150/107
[2018-04-27] MEDS: DILTIAZEM HCL 300MG CAPSULE SR 24HR PO SCH (08:41)
[2018-04-27] MEDS: LOSARTAN POTASSIUM 100 MG TABLET PO SCH (08:41)
[2018-04-27] MEDS: LEVETIRACETAM 500MG TABLET PO SCH (08:41)
[2018-04-27] MEDS: CLONIDINE 0.1MG TABLET PO PRN (08:42)
[2018-04-27] MEDS: CLONIDINE 0.2MG TABLET PO SCH (09:00)
[2018-04-27 12:00] VITALS: BP 148/79
[2018-04-27] MEDS ORDERED: HYDR100T26 PO (12:33)
[2018-04-27] MEDS ORDERED: CLON0.1T14 PO (12:33)
[2018-04-27] MEDS ORDERED: KEPP500 PO (12:33)
[2018-04-27] MEDS ORDERED: LOSA100T3 PO (12:33)
[2018-04-27] MEDS ORDERED: ZOLP5TAB2 PO (12:33)
[2018-04-27] MEDS ORDERED: DILT300C35 PO (12:33)
[2018-04-27 12:46] VITALS: BP 148/79
== END 2018-04-27 14:30 | disposition home or self-care (01) | DRG 199 ==
LOC: ER 08:41 → 6WST 08:55 → EDBEDREQ 13:35 → ENRESERV 15:41 → CANRESERV 15:41 → ENRESERV 16:12
PROVIDERS: ADMIT Internal Medicine; ATTEND Internal Medicine
PROC: 5A1D70Z Performance of Urinary Filtration, Intermittent, Less than 6 Hours Per Day (ICD-10-PCS; 2018-04-19)
PROC: 5A1D70Z Performance of Urinary Filtration, Intermittent, Less than 6 Hours Per Day (ICD-10-PCS; 2018-04-21)
PROC: 5A1D70Z Performance of Urinary Filtration, Intermittent, Less than 6 Hours Per Day (ICD-10-PCS; 2018-04-23)
PROC: 5A1D70Z Performance of Urinary Filtration, Intermittent, Less than 6 Hours Per Day (ICD-10-PCS; principal; 2018-04-25)
PROC: 5A1D70Z Performance of Urinary Filtration, Intermittent, Less than 6 Hours Per Day (ICD-10-PCS; 2018-04-26)
DX: I16.1 Hypertensive emergency (principal); I50.32 Chronic diastolic (congestive) heart failure; I24.8 Other forms of acute ischemic heart disease; E87.5 Hyperkalemia; N18.6 End stage renal disease; G40.909 Epilepsy, unspecified, not intractable, without status epilepticus; I13.2 Hypertensive heart and chronic kidney disease with heart failure and with stage 5 chronic kidney disease, or end stage renal disease; F17.200 Nicotine dependence, unspecified, uncomplicated; M19.90 Unspecified osteoarthritis, unspecified site; Z99.2 Dependence on renal dialysis; D63.1 Anemia in chronic kidney disease; E78.5 Hyperlipidemia, unspecified; Z91.19 Patient's noncompliance with other medical treatment and regimen; Z91.15 Patient's noncompliance with renal dialysis; Z88.8 Allergy status to other drugs, medicaments and biological substances
CPT/HCPCS: 36415; 71045; 80048; 82550; 83880; 84443; 84484; 93005; 93306; 99291; J0885; J1200; J1644; Q0163

== ENCOUNTER 2018-04-28 00:32 | Inpatient (IN) | payer MEDICAID ==
[~2018-04-28] VITALS: Ht 170.2 cm; Wt 71.7 kg
[2018-04-28] VITALS (10 sets, daily range): BP systolic 174–210; BP diastolic 102–131
[~2018-04-28 00:32] MED LIST changes: -AMLO5TAB88 PO; +CLON0.1T14 PO; +DILT300C35 PO; -FURO80TA3 PO; -HYDR-4094 PO; -LABE300T3 PO; +LOSA100T3 PO; +ZOLP5TAB2 PO
[2018-04-28] MEDS ORDERED: CLONIDINE 0.2MG TABLET PO ONE (02:30)
[2018-04-28] MEDS ORDERED: HYDROCODONE/ACETAMINOPHEN 5/325MG TABLET PO ONE (02:30)
[2018-04-28 03:12] LABS: BASOPHILS % 0.9 % (0.0-2.0); EOSINOPHILS % 1.2 % (0.0-5.0); HEMATOCRIT. 30.7 % (42.0-52.0); HEMOGLOBIN. 10.1 g/dL (14.0-18.0); LYMPHOCYTES % 11.6 % (20.0-50.0); MEAN CORPUSCULAR HEMOGLOBIN 28.3 pg (28.0-32.0); MEAN CORPUSCULAR VOLUME 85.9 fL (80.0-94.0); MONOCYTES % 10.3 % (2.0-8.0); PLATELET 219 x1000/uL (130-400); RED BLOOD CELL COUNT 3.57 mill/uL (4.7-6.1); RED CELL DISTRIBUTION WIDTH 19.6 % (11.6-14.6)
[2018-04-28] MEDS ORDERED: SODIUM POLYSTYRENE SULFONATE 15 G/60 ML BOT PO ONE (04:15)
[2018-04-28] MEDS ORDERED: DIPHENHYDRAMINE 25MG CAPSULE PO ONE (04:15)
[2018-04-28] MEDS ORDERED: FUROSEMIDE 100MG/10ML VIAL IV STA (07:16)
[2018-04-28] MEDS ORDERED: INSULIN REGULAR (HUMULIN R) 300UNITS/3ML IV ONE (07:30)
[2018-04-28] MEDS ORDERED: DEXTROSE 50% WATER 50ML SYRINGE IV ONE (07:30)
[2018-04-28] MEDS ORDERED: IBUPROFEN 800MG TABLET PO ONE (07:30)
[2018-04-28] MEDS ORDERED: ALBUTEROL (0.083%) 2.5MG/3ML NEB HHN ONE (07:30)
[2018-04-28] MEDS ORDERED: DIPHENHYDRAMINE 25MG CAPSULE PO PRN (08:30)
[2018-04-28] MEDS ORDERED: ACETAMINOPHEN 325MG TABLET PO PRN (08:30)
[2018-04-28] MEDS ORDERED: ONDANSETRON HCL 4MG/2ML INJ IV PRN (08:30)
[2018-04-28 09:42] LABS: BASOPHILS % 0.9 % (0.0-2.0); EOSINOPHILS % 2.4 % (0.0-5.0); HEMATOCRIT. 27.4 % (42.0-52.0); HEMOGLOBIN. 8.8 g/dL (14.0-18.0); LYMPHOCYTES % 21.2 % (20.0-50.0); MEAN CORPUSCULAR HEMOGLOBIN 27.9 pg (28.0-32.0); MEAN PLATELET VOLUME 7.4 fl (7.4-10.4); MONOCYTES % 7.3 % (2.0-8.0); NEUTROPHILS % 68.2 % (40.0-76.0); PLATELET 186 x1000/uL (130-400); RED BLOOD CELL COUNT 3.15 mill/uL (4.7-6.1); RED CELL DISTRIBUTION WIDTH 20.1 % (11.6-14.6)
[2018-04-28 09:43] LABS: INR 1.1; PROTHROMBIN TIME 11.4 sec (9.1-11.1)
[2018-04-28] MEDS: AMLODIPINE 5MG TABLET PO SCH ×2 (11:46→21:46)
[2018-04-28] MEDS ORDERED: LIDOCAINE HCL 1% 20ML VIAL (Pyxis) INJ ONE (12:44)
[2018-04-28] MEDS ORDERED: SODIUM BICARBONATE 4% (2.4MEQ) 5ML VIAL IV ONE (12:44)
[2018-04-28] MEDS: CLONIDINE 0.1MG TABLET PO PRN ×2 (14:16→21:46)
[2018-04-28] MEDS ORDERED: HYDROCODONE/ACETAMINOPHEN 5/325MG TABLET PO PRN (22:30)
[2018-04-28] MEDS ORDERED: ZOLPIDEM TARTRATE 5 MG PO PRN (22:30)
[2018-04-29] VITALS (7 sets, daily range): BP systolic 138–187; BP diastolic 84–109
[2018-04-29] MEDS: HYDRALAZINE HCL 100MG TABLET PO SCH ×3 (05:39→20:43)
[2018-04-29] MEDS ORDERED: MEDICATION NOT ON FORMULARY EA (Hydralazine Hcl 100 MG) PO SCH (06:00)
[2018-04-29] MEDS ORDERED: MEDICATION NOT ON FORMULARY EA (Sevelamer Carbonate (Renvela) 800 MG) PO SCH (08:10)
[2018-04-29] MEDS ORDERED: LOSARTAN POTASSIUM 100 MG PO SCH (09:00)
[2018-04-29] MEDS ORDERED: DILTIAZEM HCL 300 MG PO SCH (09:00)
[2018-04-29] MEDS: LEVETIRACETAM 500MG TABLET PO SCH ×2 (09:27→20:43)
[2018-04-29] MEDS: DILTIAZEM HCL 300MG CAPSULE SR 24HR PO SCH (09:28)
[2018-04-29] MEDS: LOSARTAN POTASSIUM 100 MG TABLET PO SCH (09:29)
[2018-04-29] MEDS: AMLODIPINE 5MG TABLET PO SCH ×2 (09:30→20:43)
[2018-04-29] MEDS: DIPHENHYDRAMINE 50MG/ML VIAL IV PRN ×2 (13:13→19:16)
[2018-04-29] MEDS ORDERED: CLONIDINE 0.1MG TABLET PO SCH (14:00)
[2018-04-29] MEDS: OXYCODONE HCL/ACETAMINOPHEN 5/325MG TABLET PO PRN (19:16)
[2018-04-29] MEDS: CLONIDINE 0.2MG TABLET PO SCH (20:43)
[2018-04-29] MEDS: ZOLPIDEM TARTRATE 5MG TABLET PO PRN (22:24)
[2018-04-30] MEDS: DIPHENHYDRAMINE 50MG/ML VIAL IV PRN ×5 (00:44→20:23)
[2018-04-30] MEDS: OXYCODONE HCL/ACETAMINOPHEN 5/325MG TABLET PO PRN ×4 (00:44→23:56)
[2018-04-30 04:00] VITALS: BP 136/85
[2018-04-30] MEDS: CLONIDINE 0.2MG TABLET PO SCH ×3 (05:43→22:00)
[2018-04-30] MEDS: HYDRALAZINE HCL 100MG TABLET PO SCH ×3 (05:43→22:00)
[2018-04-30 08:00] VITALS: BP 116/71
[2018-04-30 08:05] LABS: HEMATOCRIT. 29.5 % (42.0-52.0); HEMOGLOBIN. 9.8 g/dL (14.0-18.0); MEAN CORPUSCULAR HEMOGLOBIN 28.4 pg (28.0-32.0); MEAN CORPUSCULAR VOLUME 85.4 fL (80.0-94.0); MEAN PLATELET VOLUME 7.2 fl (7.4-10.4); PLATELET 206 x1000/uL (130-400); RED BLOOD CELL COUNT 3.46 mill/uL (4.7-6.1); RED CELL DISTRIBUTION WIDTH 19.9 % (11.6-14.6)
[2018-04-30] MEDS: LEVETIRACETAM 500MG TABLET PO SCH ×2 (08:37→20:23)
[2018-04-30] MEDS: AMLODIPINE 5MG TABLET PO SCH ×2 (08:38→20:22)
[2018-04-30] MEDS: LOSARTAN POTASSIUM 100 MG TABLET PO SCH (08:38)
[2018-04-30] MEDS: DILTIAZEM HCL 300MG CAPSULE SR 24HR PO SCH (08:38)
[2018-04-30 12:00] VITALS: BP 141/79
[2018-04-30 16:00] VITALS: BP 125/71
[2018-04-30 20:00] VITALS: BP 133/85
[2018-04-30] MEDS: ZOLPIDEM TARTRATE 5MG TABLET PO PRN (22:30)
[2018-05-01] VITALS: BP 140/87
[2018-05-01] MEDS: DIPHENHYDRAMINE 50MG/ML VIAL IV PRN ×4 (02:32→21:43)
[2018-05-01 04:00] VITALS: BP 159/100
[2018-05-01] MEDS: CLONIDINE 0.2MG TABLET PO SCH ×3 (06:44→21:44)
[2018-05-01] MEDS: HYDRALAZINE HCL 100MG TABLET PO SCH ×3 (06:44→21:44)
[2018-05-01] MEDS: OXYCODONE HCL/ACETAMINOPHEN 5/325MG TABLET PO PRN ×3 (06:45→21:44)
[2018-05-01 08:00] VITALS: BP 143/100
[2018-05-01] MEDS: LOSARTAN POTASSIUM 100 MG TABLET PO SCH (08:16)
[2018-05-01] MEDS: LEVETIRACETAM 500MG TABLET PO SCH ×2 (08:16→21:45)
[2018-05-01] MEDS: DILTIAZEM HCL 300MG CAPSULE SR 24HR PO SCH (08:17)
[2018-05-01] MEDS: AMLODIPINE 5MG TABLET PO SCH ×2 (08:17→21:45)
[2018-05-01 08:25] LABS: HEMATOCRIT. 27.2 % (42.0-52.0); HEMOGLOBIN. 8.9 g/dL (14.0-18.0); MEAN CORPUSCULAR HEMOGLOBIN 28.1 pg (28.0-32.0); MEAN CORPUSCULAR VOLUME 86.1 fL (80.0-94.0); MEAN PLATELET VOLUME 7.6 fl (7.4-10.4); PLATELET 159 x1000/uL (130-400); RED BLOOD CELL COUNT 3.16 mill/uL (4.7-6.1); RED CELL DISTRIBUTION WIDTH 19.6 % (11.6-14.6)
[2018-05-01 10:08] LABS: PLATELET ESTIMATE NORMAL
[2018-05-01 12:00] VITALS: BP 127/72
[2018-05-01 12:43] LABS: PLATELET ESTIMATE NORMAL
[2018-05-01 16:00] VITALS: BP 128/79
[2018-05-01 20:00] VITALS: BP 136/92
[2018-05-01] MEDS: ZOLPIDEM TARTRATE 5MG TABLET PO PRN (22:59)
[2018-05-02] VITALS (7 sets, daily range): BP systolic 104–132; BP diastolic 66–84
[2018-05-02] MEDS: HYDRALAZINE HCL 100MG TABLET PO SCH ×3 (05:29→22:00)
[2018-05-02] MEDS: CLONIDINE 0.2MG TABLET PO SCH ×3 (05:30→22:00)
[2018-05-02 06:50] LABS: BASOPHILS % 0.8 % (0.0-2.0); EOSINOPHILS % 4.3 % (0.0-5.0); HEMATOCRIT. 24.5 % (42.0-52.0); HEMOGLOBIN. 8.2 g/dL (14.0-18.0); LYMPHOCYTES % 20.4 % (20.0-50.0); MEAN CORPUSCULAR HEMOGLOBIN 28.6 pg (28.0-32.0); MEAN CORPUSCULAR VOLUME 85.9 fL (80.0-94.0); MEAN PLATELET VOLUME 7.5 fl (7.4-10.4); MONOCYTES % 12.5 % (2.0-8.0); PLATELET 146 x1000/uL (130-400); RED BLOOD CELL COUNT 2.85 mill/uL (4.7-6.1); RED CELL DISTRIBUTION WIDTH 19.9 % (11.6-14.6)
[2018-05-02] MEDS: DILTIAZEM HCL 300MG CAPSULE SR 24HR PO SCH (08:59)
[2018-05-02] MEDS: LEVETIRACETAM 500MG TABLET PO SCH ×2 (09:00→22:56)
[2018-05-02] MEDS: LOSARTAN POTASSIUM 100 MG TABLET PO SCH (09:00)
[2018-05-02] MEDS: AMLODIPINE 5MG TABLET PO SCH ×2 (09:00→21:00)
[2018-05-02] MEDS: OXYCODONE HCL/ACETAMINOPHEN 5/325MG TABLET PO PRN ×2 (09:02→21:10)
[2018-05-02] MEDS: DIPHENHYDRAMINE 50MG/ML VIAL IV PRN ×2 (09:02→21:00)
[2018-05-02] MEDS: SEVELAMER CARBONATE 800 MG TABLET PO SCH (13:07)
[2018-05-02] MEDS: EPOETIN ALFA 4000UNITS/ML VIAL SUBCUT SCH (21:00)
[2018-05-03] MEDS: ZOLPIDEM TARTRATE 5MG TABLET PO PRN (00:10)
[2018-05-03] MEDS: DIPHENHYDRAMINE 50MG/ML VIAL IV PRN ×3 (03:04→18:18)
[2018-05-03] MEDS: OXYCODONE HCL/ACETAMINOPHEN 5/325MG TABLET PO PRN ×3 (03:13→18:26)
[2018-05-03] MEDS: CLONIDINE 0.1MG TABLET PO PRN ×2 (03:18→17:31)
[2018-05-03 03:57] VITALS: BP 153/94
[2018-05-03 07:07] LABS: BASOPHILS % 0.7 % (0.0-2.0); EOSINOPHILS % 3.8 % (0.0-5.0); HEMATOCRIT. 25.4 % (42.0-52.0); HEMOGLOBIN. 8.6 g/dL (14.0-18.0); LYMPHOCYTES % 18.3 % (20.0-50.0); MEAN CORPUSCULAR HEMOGLOBIN 28.6 pg (28.0-32.0); MEAN CORPUSCULAR VOLUME 84.8 fL (80.0-94.0); MEAN PLATELET VOLUME 7.4 fl (7.4-10.4); NEUTROPHILS % 67.2 % (40.0-76.0); PLATELET 159 x1000/uL (130-400); RED CELL DISTRIBUTION WIDTH 19.4 % (11.6-14.6)
[2018-05-03] MEDS: SEVELAMER CARBONATE 800 MG TABLET PO SCH ×2 (07:50→12:59)
[2018-05-03 08:00] VITALS: BP 138/95
[2018-05-03] MEDS: LOSARTAN POTASSIUM 100 MG TABLET PO SCH (09:00)
[2018-05-03] MEDS: AMLODIPINE 5MG TABLET PO SCH ×2 (09:00→20:12)
[2018-05-03] MEDS: DILTIAZEM HCL 300MG CAPSULE SR 24HR PO SCH (09:00)
[2018-05-03] MEDS: LEVETIRACETAM 500MG TABLET PO SCH ×2 (09:33→20:12)
[2018-05-03] MEDS: HYDRALAZINE HCL 100MG TABLET PO SCH ×3 (13:49→20:13)
[2018-05-03] MEDS: CLONIDINE 0.2MG TABLET PO SCH ×3 (13:49→20:12)
[2018-05-03] MEDS ORDERED: SODIUM POLYSTYRENE SULFONATE 15 G/60 ML BOT PO SCH (14:00)
[2018-05-03 16:00] VITALS: BP 178/100
[2018-05-03 20:00] VITALS: BP 182/103
[2018-05-04] MEDS: DIPHENHYDRAMINE 50MG/ML VIAL IV PRN ×4 (00:21→21:58)
[2018-05-04] MEDS: OXYCODONE HCL/ACETAMINOPHEN 5/325MG TABLET PO PRN ×4 (00:21→22:36)
[2018-05-04 00:35] VITALS: BP 147/95
[2018-05-04 04:00] VITALS: BP 144/101
[2018-05-04] MEDS: HYDRALAZINE HCL 100MG TABLET PO SCH ×3 (04:18→21:03)
[2018-05-04] MEDS: CLONIDINE 0.2MG TABLET PO SCH ×3 (04:19→21:02)
[2018-05-04 08:00] VITALS: BP 138/93
[2018-05-04] MEDS: DILTIAZEM HCL 300MG CAPSULE SR 24HR PO SCH (08:46)
[2018-05-04] MEDS: LEVETIRACETAM 500MG TABLET PO SCH ×2 (08:46→21:02)
[2018-05-04] MEDS: LOSARTAN POTASSIUM 100 MG TABLET PO SCH (08:46)
[2018-05-04] MEDS: AMLODIPINE 5MG TABLET PO SCH ×2 (08:46→21:02)
[2018-05-04] MEDS: SEVELAMER CARBONATE 800 MG TABLET PO SCH ×3 (09:00→18:41)
[2018-05-04 16:00] VITALS: BP 115/69
[2018-05-04 20:00] VITALS: BP 160/97
[2018-05-04] MEDS: EPOETIN ALFA 4000UNITS/ML VIAL SUBCUT SCH (21:03)
[2018-05-05] VITALS: BP 150/87
[2018-05-05 04:00] VITALS: BP 137/96
[2018-05-05] MEDS: CLONIDINE 0.2MG TABLET PO SCH (05:17)
[2018-05-05] MEDS: HYDRALAZINE HCL 100MG TABLET PO SCH (05:17)
[2018-05-05] MEDS: DIPHENHYDRAMINE 50MG/ML VIAL IV PRN (05:17)
[2018-05-05] MEDS: OXYCODONE HCL/ACETAMINOPHEN 5/325MG TABLET PO PRN (06:24)
[2018-05-05 08:00] VITALS: BP 115/69
[2018-05-05] MEDS: DILTIAZEM HCL 300MG CAPSULE SR 24HR PO SCH (08:37)
[2018-05-05] MEDS: LEVETIRACETAM 500MG TABLET PO SCH (08:37)
[2018-05-05] MEDS: SEVELAMER CARBONATE 800 MG TABLET PO SCH (08:37)
[2018-05-05] MEDS: AMLODIPINE 5MG TABLET PO SCH (08:38)
[2018-05-05] MEDS: LOSARTAN POTASSIUM 100 MG TABLET PO SCH (08:38)
[2018-05-05 10:14] VITALS: BP 115/64
== END 2018-05-05 10:57 | disposition home or self-care (01) | DRG 466 ==
LOC: ER 00:32 → 7WST 07:19 → EDBEDREQ 07:42 → EDBEDREQTM 07:42 → CANRESERV 20:03 → ENRESERV 20:03 → 6WST 05-02 07:54
PROVIDERS: ADMIT Internal Medicine; ATTEND Internal Medicine
PROC: 5A1D70Z Performance of Urinary Filtration, Intermittent, Less than 6 Hours Per Day (ICD-10-PCS; principal; 2018-04-28)
PROC: 02PYX3Z Removal of Infusion Device from Great Vessel, External Approach (ICD-10-PCS; 2018-04-28)
PROC: 0JH63XZ Insertion of Tunneled Vascular Access Device into Chest Subcutaneous Tissue and Fascia, Percutaneous Approach (ICD-10-PCS; 2018-04-28)
PROC: 02HV33Z Insertion of Infusion Device into Superior Vena Cava, Percutaneous Approach (ICD-10-PCS; 2018-04-28)
PROC: B5181ZA Fluoroscopy of Superior Vena Cava using Low Osmolar Contrast, Guidance (ICD-10-PCS; 2018-04-28)
PROC: 5A1D70Z Performance of Urinary Filtration, Intermittent, Less than 6 Hours Per Day (ICD-10-PCS; 2018-04-30)
PROC: 5A1D70Z Performance of Urinary Filtration, Intermittent, Less than 6 Hours Per Day (ICD-10-PCS; 2018-05-02)
PROC: 5A1D70Z Performance of Urinary Filtration, Intermittent, Less than 6 Hours Per Day (ICD-10-PCS; 2018-05-05)
DX: T82.49XA Other complication of vascular dialysis catheter, initial encounter (principal); N18.6 End stage renal disease; E11.22 Type 2 diabetes mellitus with diabetic chronic kidney disease; I50.32 Chronic diastolic (congestive) heart failure; I13.0 Hypertensive heart and chronic kidney disease with heart failure and stage 1 through stage 4 chronic kidney disease, or unspecified chronic kidney disease; E87.5 Hyperkalemia; D63.8 Anemia in other chronic diseases classified elsewhere; E78.00 Pure hypercholesterolemia, unspecified; E78.5 Hyperlipidemia, unspecified; F14.10 Cocaine abuse, uncomplicated; F16.10 Hallucinogen abuse, uncomplicated; G40.909 Epilepsy, unspecified, not intractable, without status epilepticus; Y84.1 Kidney dialysis as the cause of abnormal reaction of the patient, or of later complication, without mention of misadventure at the time of the procedure; F17.200 Nicotine dependence, unspecified, uncomplicated; Z79.4 Long term (current) use of insulin; Z88.8 Allergy status to other drugs, medicaments and biological substances; Z99.2 Dependence on renal dialysis; Z79.899 Other long term (current) drug therapy; Y92.89 Other specified places as the place of occurrence of the external cause
CPT/HCPCS: 36415; 36581; 71045; 77001; 80048; 93005; 93970; 96374; 96375; 99285; C1750; C1769; C1893; J0885; J1200; J1642; J1815; J1940; J2405; J3490; Q0163

== ENCOUNTER 2018-06-10 23:54 | Emergency (ER) | payer MEDICAID ==
[~2018-06-10] VITALS: Ht 172.7 cm; Wt 89.0 kg
[2018-06-11 02:33] VITALS: BP 163/116
[2018-06-11] MEDS ORDERED: CLON1PAT10 TP (14:56)
[2018-06-11] MEDS ORDERED: KEPP500 MT (15:09)
[2018-06-11] MEDS ORDERED: AMLO2.5T45 MT (15:09)
[2018-06-11] MEDS ORDERED: MINO10TA MT (15:09)
[2018-06-11] MEDS ORDERED: FOLI0.8C MT (15:09)
[2018-06-12] MEDS ORDERED: FURO80TA87 MT (12:43)
== END 2018-06-11 04:30 | disposition left against medical advice (07) ==
LOC: ER 23:54
DX: Z53.21 Procedure and treatment not carried out due to patient leaving prior to being seen by health care provider (principal)
CPT/HCPCS: Z7610 ×2

== ENCOUNTER 2018-06-11 05:37 | Inpatient (IN) | payer MEDICAID ==
[~2018-06-11] VITALS: Ht 172.7 cm; Wt 88.0 kg
[2018-06-11] MEDS ORDERED: MORPHINE SULFATE 4 MG/ML CPJ (NOT FOR IM USE) IV STA (07:29)
[2018-06-11] MEDS ORDERED: ONDANSETRON HCL 4MG/2ML INJ IV STA (07:29)
[2018-06-11] MEDS ORDERED: DIPHENHYDRAMINE 50MG/ML VIAL IV ONE (07:30)
[2018-06-11 08:10] LABS: HEMATOCRIT. 30.3 % (42.0-52.0); HEMOGLOBIN. 9.9 g/dL (14.0-18.0); MEAN CORPUSCULAR HEMOGLOBIN 27.7 pg (28.0-32.0); MEAN CORPUSCULAR VOLUME 85.1 fL (80.0-94.0); MEAN PLATELET VOLUME 7.4 fl (7.4-10.4); PLATELET 188 x1000/uL (130-400); RED BLOOD CELL COUNT 3.56 mill/uL (4.7-6.1); RED CELL DISTRIBUTION WIDTH 18.8 % (11.6-14.6)
[2018-06-11 08:13] LABS: CHLORIDE 106 mEq/L (98-107)
[2018-06-11 08:17] LABS: ETHANOL BLOOD < 10 mg/dL; INR 1.1; PARTIAL THROMBOPLASTIN TIME 27.6 sec (23.4-31.0); PROTHROMBIN TIME 11.4 sec (9.1-11.1)
[2018-06-11 10:25] LABS: PLATELET ESTIMATE NORMAL
[2018-06-11 12:38] VITALS: BP 188/131
[2018-06-11 14:10] VITALS: BP 188/131
[2018-06-11] MEDS: DIPHENHYDRAMINE 50MG/ML VIAL IV PRN ×2 (14:39→21:46)
[2018-06-11] MEDS: MORPHINE SULFATE 4 MG/ML CPJ (NOT FOR IM USE) IV PRN (14:45)
[2018-06-11] MEDS ORDERED: CLON1PAT10 TP (14:56)
[2018-06-11] MEDS ORDERED: KEPP500 MT (15:09)
[2018-06-11] MEDS ORDERED: FOLI0.8C MT (15:09)
[2018-06-11] MEDS ORDERED: MINO10TA MT (15:09)
[2018-06-11] MEDS ORDERED: AMLO2.5T45 MT (15:09)
[2018-06-11] MEDS: CLONIDINE 0.1MG TABLET PO PRN (15:34)
[2018-06-11 16:00] VITALS: BP_SYST 167; BP_DIAS 100; BP_DIAS 93
[2018-06-11] MEDS: CLONIDINE 0.3MG TABLET PO SCH (17:23)
[2018-06-11] MEDS ORDERED: HEPARIN SODIUM 1,000 UNIT/1ML VIAL IV ONE (19:45)
[2018-06-11 20:00] VITALS: BP 167/120
[2018-06-11] MEDS ORDERED: ZOLPIDEM TARTRATE 5MG TABLET PO PRN (21:00)
[2018-06-11] MEDS: MINOXIDIL 10MG TABLET PO SCH (22:30)
[2018-06-12] VITALS (10 sets, daily range): BP systolic 98–160; BP diastolic 49–106
[2018-06-12] MEDS ORDERED: DILTIAZEM HCL 60MG TABLET PO SCH
[2018-06-12] MEDS: EPOETIN ALFA 4000UNITS/ML VIAL SUBCUT SCH (01:16)
[2018-06-12] MEDS: CLONIDINE 0.3MG TABLET PO SCH ×4 (01:17→20:55)
[2018-06-12] MEDS: AMLODIPINE 2.5MG TABLET PO SCH ×2 (01:17→09:01)
[2018-06-12] MEDS: CLONIDINE HCL 0.1MG/24HR PATCH TD SCH (01:17)
[2018-06-12] MEDS: HYDRALAZINE HCL 100MG TABLET PO SCH ×4 (01:17→20:55)
[2018-06-12] MEDS: LOSARTAN POTASSIUM 100 MG TABLET PO SCH ×2 (01:17→09:00)
[2018-06-12] MEDS: LEVETIRACETAM 500MG TABLET PO SCH ×3 (01:19→20:56)
[2018-06-12] MEDS: SEVELAMER CARBONATE 800 MG TABLET PO SCH ×4 (01:42→17:02)
[2018-06-12 06:44] LABS: HEMATOCRIT. 29.6 % (42.0-52.0); HEMOGLOBIN. 9.8 g/dL (14.0-18.0); MEAN CORPUSCULAR HEMOGLOBIN 27.9 pg (28.0-32.0); MEAN CORPUSCULAR VOLUME 84.5 fL (80.0-94.0); MEAN PLATELET VOLUME 7.1 fl (7.4-10.4); PLATELET 170 x1000/uL (130-400); RED CELL DISTRIBUTION WIDTH 18.8 % (11.6-14.6)
[2018-06-12] MEDS: DILTIAZEM HCL 30MG TABLET PO SCH ×3 (08:58→18:35)
[2018-06-12] MEDS: MINOXIDIL 10MG TABLET PO SCH ×2 (08:59→18:36)
[2018-06-12] MEDS: DIPHENHYDRAMINE 50MG/ML VIAL IV PRN ×2 (09:02→17:02)
[2018-06-12] MEDS: MORPHINE SULFATE 4 MG/ML CPJ (NOT FOR IM USE) IV PRN ×3 (09:05→21:44)
[2018-06-12] MEDS ORDERED: FURO80TA87 MT (12:43)
[2018-06-12] MEDS: ACETAMINOPHEN 325MG TABLET PO PRN (13:23)
[2018-06-12] MEDS: ONDANSETRON HCL 4MG/2ML INJ IV PRN (14:00)
[2018-06-12 14:20] LABS: PLATELET ESTIMATE NORMAL
[2018-06-12] MEDS ORDERED: HEPARIN SODIUM 1,000 UNIT/1ML VIAL IV NR (15:45)
[2018-06-12] MEDS: NICOTINE 14MG PATCH TD SCH (17:03)
[2018-06-13] VITALS: BP_SYST 98; BP_DIAS 46; BP_DIAS 49
[2018-06-13 02:32] VITALS: BP 132/53
[2018-06-13] MEDS: DIPHENHYDRAMINE 50MG/ML VIAL IV PRN ×3 (02:36→23:46)
[2018-06-13] MEDS: MORPHINE SULFATE 4 MG/ML CPJ (NOT FOR IM USE) IV PRN ×3 (02:36→22:28)
[2018-06-13] MEDS: IPRATROPIUM/ALBUTEROL 0.5-3(2.5)MG/3ML NEB INH PRN (02:37)
[2018-06-13 04:00] VITALS: BP 95/52
[2018-06-13] MEDS: DILTIAZEM HCL 30MG TABLET PO SCH ×4 (05:38→17:18)
[2018-06-13] MEDS: CLONIDINE 0.3MG TABLET PO SCH ×3 (05:38→22:00)
[2018-06-13] MEDS: HYDRALAZINE HCL 100MG TABLET PO SCH ×3 (05:38→22:00)
[2018-06-13 07:10] LABS: HEMOGLOBIN. 10.1 g/dL (14.0-18.0); MEAN CORPUSCULAR HEMOGLOBIN 27.5 pg (28.0-32.0); MEAN CORPUSCULAR VOLUME 84.6 fL (80.0-94.0); MEAN PLATELET VOLUME 7.3 fl (7.4-10.4); PLATELET 157 x1000/uL (130-400); RED BLOOD CELL COUNT 3.66 mill/uL (4.7-6.1); RED CELL DISTRIBUTION WIDTH 18.9 % (11.6-14.6)
[2018-06-13 08:00] VITALS: BP 120/70
[2018-06-13] MEDS: SEVELAMER CARBONATE 800 MG TABLET PO SCH ×3 (09:12→17:26)
[2018-06-13] MEDS: LOSARTAN POTASSIUM 100 MG TABLET PO SCH (09:12)
[2018-06-13] MEDS: LEVETIRACETAM 500MG TABLET PO SCH ×2 (09:12→22:24)
[2018-06-13] MEDS: AMLODIPINE 2.5MG TABLET PO SCH (09:13)
[2018-06-13] MEDS: MINOXIDIL 10MG TABLET PO SCH ×2 (09:13→17:00)
[2018-06-13 10:51] LABS: PLATELET ESTIMATE NORMAL
[2018-06-13] MEDS: NICOTINE 14MG PATCH TD SCH (12:50)
[2018-06-13] MEDS: CALCIUM CARBONATE 500MG TABLET CHEW PO PRN (13:55)
[2018-06-13 16:00] VITALS: BP 90/52
[2018-06-13] MEDS: ACETAMINOPHEN 325MG TABLET PO PRN (17:26)
[2018-06-13] MEDS: DOCUSATE SODIUM 100MG CAPSULE PO PRN (17:26)
[2018-06-13 20:08] VITALS: BP 99/77
[2018-06-14] VITALS: BP 128/79
[2018-06-14 04:00] VITALS: BP 125/74
[2018-06-14] MEDS: MORPHINE SULFATE 4 MG/ML CPJ (NOT FOR IM USE) IV PRN ×4 (04:26→19:57)
[2018-06-14] MEDS: IPRATROPIUM/ALBUTEROL 0.5-3(2.5)MG/3ML NEB INH PRN ×3 (05:45→23:23)
[2018-06-14] MEDS: CLONIDINE 0.3MG TABLET PO SCH ×3 (06:00→21:01)
[2018-06-14] MEDS: HYDRALAZINE HCL 100MG TABLET PO SCH ×3 (06:00→21:01)
[2018-06-14] MEDS: DILTIAZEM HCL 30MG TABLET PO SCH ×4 (06:00→18:00)
[2018-06-14 07:20] LABS: BASOPHILS % 0.6 % (0.0-2.0); EOSINOPHILS % 1.9 % (0.0-5.0); HEMATOCRIT. 29.8 % (42.0-52.0); HEMOGLOBIN. 9.7 g/dL (14.0-18.0); LYMPHOCYTES % 18.7 % (20.0-50.0); MEAN CORPUSCULAR HEMOGLOBIN 27.2 pg (28.0-32.0); MEAN CORPUSCULAR VOLUME 83.8 fL (80.0-94.0); MEAN PLATELET VOLUME 7.3 fl (7.4-10.4); MONOCYTES % 27.6 % (2.0-8.0); NEUTROPHILS % 51.2 % (40.0-76.0); PLATELET 140 x1000/uL (130-400); RED BLOOD CELL COUNT 3.56 mill/uL (4.7-6.1); RED CELL DISTRIBUTION WIDTH 18.3 % (11.6-14.6)
[2018-06-14 08:00] VITALS: BP 108/62
[2018-06-14] MEDS: AMLODIPINE 2.5MG TABLET PO SCH (09:00)
[2018-06-14] MEDS: LOSARTAN POTASSIUM 100 MG TABLET PO SCH (09:00)
[2018-06-14] MEDS: MINOXIDIL 10MG TABLET PO SCH ×2 (09:00→16:56)
[2018-06-14] MEDS: LEVETIRACETAM 500MG TABLET PO SCH ×2 (09:04→21:01)
[2018-06-14] MEDS: ACETAMINOPHEN 325MG TABLET PO PRN (09:04)
[2018-06-14] MEDS: NICOTINE 14MG PATCH TD SCH (09:05)
[2018-06-14] MEDS: SEVELAMER CARBONATE 800 MG TABLET PO SCH ×3 (10:15→21:27)
[2018-06-14] MEDS: DIPHENHYDRAMINE 50MG/ML VIAL IV PRN ×2 (11:52→19:58)
[2018-06-14 12:00] VITALS: BP 132/80
[2018-06-14] MEDS: CALCIUM CARBONATE 500MG TABLET CHEW PO PRN ×2 (15:18→23:45)
[2018-06-14 19:24] LABS: CLARITY URINE CLEAR (CLEAR); COLOR URINE YELLOW (YELLOW); KETONES URINE NEGATIVE (NEGATIVE); LEUKOCYTE ESTERASE URINE TRACE (NEGATIVE); NITRITE URINE NEGATIVE (NEGATIVE); OCCULT BLOOD URINE NEGATIVE (NEGATIVE); PH URINE 8.5 (4.5-8.0); PROTEIN URINE 3+ (NEGATIVE); SPECIFIC GRAVITY URINE 1.015 (1.005-1.030); UROBILINOGEN URINE 0.2 E.U./dL (0.2-1.0)
[2018-06-14 19:51] LABS: *AMPHETAMINES SCREEN URINE NEGATIVE (NEGATIVE); *BARBITURATES SCREEN URINE NEGATIVE (NEGATIVE); *BENZODIAZEPINES SCREEN URINE NEGATIVE (NEGATIVE); *COCAINE SCREEN URINE PRESUMTIVE POSITIVE (NEGATIVE)
[2018-06-14 19:52] LABS: CANNABINOID URINE SCREEN NEGATIVE (NEGATIVE); METHADONE URINE SCREEN NEGATIVE (NEGATIVE); OPIATES URINE SCREEN PRESUMTIVE POSITIVE (NEGATIVE); PHENCYCLIDINE URINE SCREEN PRESUMTIVE POSITIVE (NEGATIVE)
[2018-06-14 20:34] VITALS: BP 144/93
[2018-06-14] MEDS: EPOETIN ALFA 4000UNITS/ML VIAL SUBCUT SCH (21:01)
[2018-06-14] MEDS: FUROSEMIDE 40MG TABLET PO SCH (21:01)
[2018-06-14] MEDS: DOCUSATE SODIUM 100MG CAPSULE PO PRN (21:26)
[2018-06-15] MEDS: MORPHINE SULFATE 4 MG/ML CPJ (NOT FOR IM USE) IV PRN ×4 (00:22→20:14)
[2018-06-15 00:44] VITALS: BP 140/78
[2018-06-15 04:00] VITALS: BP 120/76
[2018-06-15] MEDS: DIPHENHYDRAMINE 50MG/ML VIAL IV PRN ×2 (04:03→18:29)
[2018-06-15] MEDS: DILTIAZEM HCL 30MG TABLET PO SCH ×4 (06:00→18:29)
[2018-06-15] MEDS: CLONIDINE 0.3MG TABLET PO SCH ×3 (06:00→21:17)
[2018-06-15] MEDS: HYDRALAZINE HCL 100MG TABLET PO SCH ×3 (06:15→21:17)
[2018-06-15 08:00] VITALS: BP 147/87
[2018-06-15 08:29] LABS: HEMATOCRIT. 32.7 % (42.0-52.0); HEMOGLOBIN. 10.6 g/dL (14.0-18.0); MEAN CORPUSCULAR HEMOGLOBIN 27.1 pg (28.0-32.0); MEAN CORPUSCULAR VOLUME 83.2 fL (80.0-94.0); MEAN PLATELET VOLUME 7.5 fl (7.4-10.4); PLATELET 145 x1000/uL (130-400); RED BLOOD CELL COUNT 3.92 mill/uL (4.7-6.1); RED CELL DISTRIBUTION WIDTH 17.7 % (11.6-14.6)
[2018-06-15] MEDS: AMLODIPINE 2.5MG TABLET PO SCH (09:01)
[2018-06-15] MEDS: SEVELAMER CARBONATE 800 MG TABLET PO SCH ×3 (09:01→17:00)
[2018-06-15] MEDS: FUROSEMIDE 40MG TABLET PO SCH ×2 (09:02→20:14)
[2018-06-15] MEDS: NICOTINE 14MG PATCH TD SCH (09:02)
[2018-06-15] MEDS: LOSARTAN POTASSIUM 100 MG TABLET PO SCH (09:02)
[2018-06-15] MEDS: MINOXIDIL 10MG TABLET PO SCH ×2 (09:02→18:29)
[2018-06-15] MEDS: LEVETIRACETAM 500MG TABLET PO SCH ×2 (09:02→20:13)
[2018-06-15] MEDS: CALCIUM CARBONATE 500MG TABLET CHEW PO PRN ×2 (09:12→18:29)
[2018-06-15 12:00] VITALS: BP 145/92
[2018-06-15 14:21] LABS: PLATELET ESTIMATE NORMAL
[2018-06-15] MEDS: ONDANSETRON HCL 4MG/2ML INJ IV PRN ×2 (14:55→21:17)
[2018-06-15 16:00] VITALS: BP 129/79
[2018-06-15 20:00] VITALS: BP 156/97
[2018-06-16] VITALS: BP 145/72
[2018-06-16] MEDS: MORPHINE SULFATE 4 MG/ML CPJ (NOT FOR IM USE) IV PRN ×3 (00:40→16:10)
[2018-06-16] MEDS: DIPHENHYDRAMINE 50MG/ML VIAL IV PRN ×2 (02:42→12:44)
[2018-06-16] MEDS: CALCIUM CARBONATE 500MG TABLET CHEW PO PRN ×2 (02:43→12:35)
[2018-06-16 04:00] VITALS: BP 92/62
[2018-06-16 05:53] VITALS: BP 90/54
[2018-06-16] MEDS: HYDRALAZINE HCL 100MG TABLET PO SCH ×3 (06:00→22:00)
[2018-06-16] MEDS: DILTIAZEM HCL 30MG TABLET PO SCH ×4 (06:00→17:58)
[2018-06-16] MEDS: CLONIDINE 0.3MG TABLET PO SCH ×3 (06:00→22:00)
[2018-06-16] MEDS: ACETAMINOPHEN 325MG TABLET PO PRN ×3 (06:30→21:33)
[2018-06-16 06:49] LABS: HEMATOCRIT. 31.3 % (42.0-52.0); HEMOGLOBIN. 10.2 g/dL (14.0-18.0); MEAN CORPUSCULAR HEMOGLOBIN 27.5 pg (28.0-32.0); MEAN CORPUSCULAR VOLUME 84.1 fL (80.0-94.0); MEAN PLATELET VOLUME 7.1 fl (7.4-10.4); PLATELET 137 x1000/uL (130-400); RED BLOOD CELL COUNT 3.72 mill/uL (4.7-6.1)
[2018-06-16 08:00] VITALS: BP 85/36
[2018-06-16] MEDS: ONDANSETRON HCL 4MG/2ML INJ IV PRN ×2 (08:21→16:06)
[2018-06-16] MEDS: NICOTINE 14MG PATCH TD SCH (08:21)
[2018-06-16] MEDS: SEVELAMER CARBONATE 800 MG TABLET PO SCH ×3 (08:33→18:02)
[2018-06-16] MEDS: LEVETIRACETAM 500MG TABLET PO SCH ×2 (08:33→21:34)
[2018-06-16] MEDS: LOSARTAN POTASSIUM 100 MG TABLET PO SCH (09:00)
[2018-06-16] MEDS: MINOXIDIL 10MG TABLET PO SCH ×2 (09:00→17:00)
[2018-06-16] MEDS: FUROSEMIDE 40MG TABLET PO SCH ×2 (09:00→21:34)
[2018-06-16] MEDS: AMLODIPINE 2.5MG TABLET PO SCH (09:00)
[2018-06-16 12:00] VITALS: BP 115/67
[2018-06-16 13:54] LABS: PLATELET ESTIMATE NORMAL
[2018-06-16 20:00] VITALS: BP 98/52
[2018-06-16] MEDS: IPRATROPIUM/ALBUTEROL 0.5-3(2.5)MG/3ML NEB INH PRN (21:21)
[2018-06-17] VITALS (8 sets, daily range): BP systolic 110–176; BP diastolic 67–118
[2018-06-17] MEDS: IPRATROPIUM/ALBUTEROL 0.5-3(2.5)MG/3ML NEB INH PRN ×2 (01:04→07:47)
[2018-06-17] MEDS: DIPHENHYDRAMINE 50MG/ML VIAL IV PRN ×3 (01:07→15:49)
[2018-06-17] MEDS: MORPHINE SULFATE 4 MG/ML CPJ (NOT FOR IM USE) IV PRN ×4 (03:09→21:09)
[2018-06-17] MEDS: CALCIUM CARBONATE 500MG TABLET CHEW PO PRN ×3 (03:09→13:59)
[2018-06-17] MEDS: ONDANSETRON HCL 4MG/2ML INJ IV PRN ×4 (03:13→22:12)
[2018-06-17] MEDS: DILTIAZEM HCL 30MG TABLET PO SCH ×4 (06:00→17:05)
[2018-06-17] MEDS: HYDRALAZINE HCL 100MG TABLET PO SCH ×3 (06:28→22:13)
[2018-06-17] MEDS: CLONIDINE 0.3MG TABLET PO SCH ×3 (06:30→22:12)
[2018-06-17] MEDS: SEVELAMER CARBONATE 800 MG TABLET PO SCH ×4 (08:46→17:16)
[2018-06-17] MEDS: MINOXIDIL 10MG TABLET PO SCH ×2 (08:47→17:00)
[2018-06-17] MEDS: FUROSEMIDE 40MG TABLET PO SCH ×2 (08:47→21:09)
[2018-06-17] MEDS: NICOTINE 14MG PATCH TD SCH (08:47)
[2018-06-17] MEDS: LOSARTAN POTASSIUM 100 MG TABLET PO SCH (08:47)
[2018-06-17] MEDS: LEVETIRACETAM 500MG TABLET PO SCH ×2 (08:47→21:08)
[2018-06-17] MEDS: AMLODIPINE 2.5MG TABLET PO SCH (09:00)
[2018-06-17] MEDS: PANTOPRAZOLE 40MG DR TABLET PO SCH (17:15)
[2018-06-18] VITALS (7 sets, daily range): BP systolic 96–167; BP diastolic 49–77
[2018-06-18] MEDS: DIPHENHYDRAMINE 50MG/ML VIAL IV PRN ×4 (03:12→23:00)
[2018-06-18] MEDS: HYDRALAZINE HCL 100MG TABLET PO SCH ×3 (06:00→23:01)
[2018-06-18] MEDS: DILTIAZEM HCL 30MG TABLET PO SCH ×4 (06:00→17:38)
[2018-06-18] MEDS: CLONIDINE 0.3MG TABLET PO SCH ×3 (06:00→22:00)
[2018-06-18 06:25] LABS: HEMATOCRIT. 29.1 % (42.0-52.0); HEMOGLOBIN. 9.6 g/dL (14.0-18.0); MEAN CORPUSCULAR HEMOGLOBIN 27.4 pg (28.0-32.0); MEAN CORPUSCULAR VOLUME 83.3 fL (80.0-94.0); MEAN PLATELET VOLUME 7.6 fl (7.4-10.4); PLATELET 147 x1000/uL (130-400); RED CELL DISTRIBUTION WIDTH 17.4 % (11.6-14.6)
[2018-06-18] MEDS: PANTOPRAZOLE 40MG DR TABLET PO SCH (06:51)
[2018-06-18] MEDS: MORPHINE SULFATE 4 MG/ML CPJ (NOT FOR IM USE) IV PRN ×4 (06:51→23:50)
[2018-06-18] MEDS: MINOXIDIL 10MG TABLET PO SCH ×2 (09:00→17:00)
[2018-06-18] MEDS: LOSARTAN POTASSIUM 100 MG TABLET PO SCH (09:00)
[2018-06-18] MEDS: AMLODIPINE 2.5MG TABLET PO SCH (09:00)
[2018-06-18] MEDS: NICOTINE 14MG PATCH TD SCH (09:45)
[2018-06-18] MEDS: FUROSEMIDE 40MG TABLET PO SCH ×2 (09:46→23:01)
[2018-06-18] MEDS: LEVETIRACETAM 500MG TABLET PO SCH ×2 (09:46→23:01)
[2018-06-18] MEDS: SEVELAMER CARBONATE 800 MG TABLET PO SCH ×3 (09:46→17:15)
[2018-06-18] MEDS: ONDANSETRON HCL 4MG/2ML INJ IV PRN (09:59)
[2018-06-18] MEDS: CALCIUM CARBONATE 500MG TABLET CHEW PO PRN (09:59)
[2018-06-18] MEDS: ACETAMINOPHEN 325MG TABLET PO PRN (17:17)
[2018-06-18] MEDS ORDERED: LACTULOSE 20G/30ML UDC PO NR ×2 (18:00→21:00)
[2018-06-18] MEDS ORDERED: EPOETIN ALFA 4000UNITS/ML VIAL SUBCUT SCH (21:00)
[2018-06-18] MEDS ORDERED: LACTULOSE 20G/30ML UDC PO PRN (21:00)
[2018-06-18] MEDS: CLONIDINE HCL 0.1MG/24HR PATCH TD SCH (22:00)
[2018-06-18] MEDS: CEFTRIAXONE 1 G PREMIX 50 ML IV SCH (23:31)
[2018-06-19] VITALS: BP 122/64
[2018-06-19 04:00] VITALS: BP 166/99
[2018-06-19] MEDS: MORPHINE SULFATE 4 MG/ML CPJ (NOT FOR IM USE) IV PRN ×6 (04:51→22:44)
[2018-06-19] MEDS: DILTIAZEM HCL 30MG TABLET PO SCH ×4 (04:52→17:30)
[2018-06-19] MEDS: ONDANSETRON HCL 4MG/2ML INJ IV PRN ×2 (05:14→23:53)
[2018-06-19] MEDS: CLONIDINE 0.3MG TABLET PO SCH ×3 (06:00→22:00)
[2018-06-19] MEDS: HYDRALAZINE HCL 100MG TABLET PO SCH ×3 (06:58→22:00)
[2018-06-19 08:00] VITALS: BP 123/88
[2018-06-19] MEDS: AMLODIPINE 2.5MG TABLET PO SCH (09:00)
[2018-06-19] MEDS: LOSARTAN POTASSIUM 100 MG TABLET PO SCH (09:00)
[2018-06-19] MEDS: SEVELAMER CARBONATE 800 MG TABLET PO SCH ×3 (09:36→17:30)
[2018-06-19] MEDS: FUROSEMIDE 40MG TABLET PO SCH ×2 (09:37→20:57)
[2018-06-19] MEDS: FAMOTIDINE 20MG TABLET PO SCH (09:37)
[2018-06-19] MEDS: MINOXIDIL 10MG TABLET PO SCH ×2 (09:37→17:00)
[2018-06-19] MEDS: LEVETIRACETAM 500MG TABLET PO SCH ×2 (09:37→20:57)
[2018-06-19] MEDS: DIPHENHYDRAMINE 50MG/ML VIAL IV PRN ×2 (09:37→18:01)
[2018-06-19] MEDS: NICOTINE 14MG PATCH TD SCH (09:37)
[2018-06-19 12:00] VITALS: BP 138/90
[2018-06-19 13:16] LABS: PLATELET ESTIMATE NORMAL
[2018-06-19 16:00] VITALS: BP 129/84
[2018-06-19 20:00] VITALS: BP 155/85
[2018-06-19] MEDS: CEFTRIAXONE 1 G PREMIX 50 ML IV SCH (20:57)
[2018-06-19] MEDS: CALCIUM CARBONATE 500MG TABLET CHEW PO PRN (22:44)
[2018-06-19] MEDS: ACETAMINOPHEN 325MG TABLET PO PRN (22:51)
[2018-06-20] VITALS: BP 155/82
[2018-06-20] MEDS: DIPHENHYDRAMINE 50MG/ML VIAL IV PRN ×3 (02:23→20:02)
[2018-06-20] MEDS: MORPHINE SULFATE 4 MG/ML CPJ (NOT FOR IM USE) IV PRN ×4 (03:40→20:06)
[2018-06-20 04:05] VITALS: BP 158/93
[2018-06-20] MEDS: CLONIDINE 0.3MG TABLET PO SCH ×3 (05:19→21:28)
[2018-06-20] MEDS: HYDRALAZINE HCL 100MG TABLET PO SCH ×3 (05:19→21:27)
[2018-06-20] MEDS: DILTIAZEM HCL 30MG TABLET PO SCH ×4 (05:21→17:41)
[2018-06-20 08:00] VITALS: BP 138/83
[2018-06-20] MEDS: FAMOTIDINE 20MG TABLET PO SCH (08:53)
[2018-06-20] MEDS: NICOTINE 14MG PATCH TD SCH (08:53)
[2018-06-20] MEDS: SEVELAMER CARBONATE 800 MG TABLET PO SCH ×3 (08:53→17:37)
[2018-06-20] MEDS: LOSARTAN POTASSIUM 100 MG TABLET PO SCH (08:53)
[2018-06-20] MEDS: FUROSEMIDE 40MG TABLET PO SCH ×2 (08:55→21:00)
[2018-06-20] MEDS: MINOXIDIL 10MG TABLET PO SCH ×2 (08:55→17:37)
[2018-06-20] MEDS: LEVETIRACETAM 500MG TABLET PO SCH ×2 (08:56→21:00)
[2018-06-20] MEDS: AMLODIPINE 2.5MG TABLET PO SCH (08:57)
[2018-06-20 09:33] LABS: BASOPHILS % 0.7 % (0.0-2.0); HEMOGLOBIN. 10.5 g/dL (14.0-18.0); LYMPHOCYTES % 19.2 % (20.0-50.0); MEAN CORPUSCULAR HEMOGLOBIN 26.8 pg (28.0-32.0); MEAN CORPUSCULAR VOLUME 81.8 fL (80.0-94.0); MEAN PLATELET VOLUME 7.6 fl (7.4-10.4); MONOCYTES % 14.7 % (2.0-8.0); NEUTROPHILS % 61.4 % (40.0-76.0); PLATELET 199 x1000/uL (130-400); RED BLOOD CELL COUNT 3.91 mill/uL (4.7-6.1); RED CELL DISTRIBUTION WIDTH 17.2 % (11.6-14.6)
[2018-06-20] MEDS: ONDANSETRON HCL 4MG/2ML INJ IV PRN (10:07)
[2018-06-20 12:00] VITALS: BP 152/91
[2018-06-20] MEDS: CLONIDINE 0.1MG TABLET PO PRN ×2 (13:05→13:16)
[2018-06-20 16:00] VITALS: BP 128/75
[2018-06-20] MEDS: CEFTRIAXONE 1 G PREMIX 50 ML IV SCH (19:30)
[2018-06-20 20:00] VITALS: BP 115/67
[2018-06-21] VITALS (7 sets, daily range): BP systolic 105–166; BP diastolic 67–107
[2018-06-21] MEDS: MORPHINE SULFATE 4 MG/ML CPJ (NOT FOR IM USE) IV PRN ×5 (00:10→18:17)
[2018-06-21] MEDS: DIPHENHYDRAMINE 50MG/ML VIAL IV PRN ×3 (04:11→21:06)
[2018-06-21] MEDS: CLONIDINE HCL 0.1MG/24HR PATCH TD SCH (04:32)
[2018-06-21] MEDS: HYDRALAZINE HCL 100MG TABLET PO SCH ×3 (06:00→22:29)
[2018-06-21] MEDS: CLONIDINE 0.3MG TABLET PO SCH ×3 (06:00→22:29)
[2018-06-21] MEDS: DILTIAZEM HCL 30MG TABLET PO SCH ×4 (06:23→18:00)
[2018-06-21] MEDS: LOSARTAN POTASSIUM 100 MG TABLET PO SCH (08:07)
[2018-06-21] MEDS: FUROSEMIDE 40MG TABLET PO SCH ×3 (08:07→20:15)
[2018-06-21] MEDS: MINOXIDIL 10MG TABLET PO SCH ×2 (08:08→17:00)
[2018-06-21] MEDS: SEVELAMER CARBONATE 800 MG TABLET PO SCH ×3 (08:13→17:36)
[2018-06-21] MEDS: LEVETIRACETAM 500MG TABLET PO SCH ×2 (08:13→20:15)
[2018-06-21] MEDS: NICOTINE 14MG PATCH TD SCH (08:14)
[2018-06-21] MEDS: AMLODIPINE 2.5MG TABLET PO SCH (08:15)
[2018-06-21] MEDS: DOCUSATE SODIUM 100MG CAPSULE PO PRN (11:23)
[2018-06-21] MEDS: ACETAMINOPHEN 325MG TABLET PO PRN (18:06)
[2018-06-21] MEDS: CEFTRIAXONE 1 G PREMIX 50 ML IV SCH (18:17)
[2018-06-21] MEDS: FAMOTIDINE 20MG TABLET PO SCH (20:14)
[2018-06-21] MEDS: ONDANSETRON HCL 4MG/2ML INJ IV PRN (22:30)
[2018-06-22] VITALS: BP 151/83
[2018-06-22] MEDS: MORPHINE SULFATE 4 MG/ML CPJ (NOT FOR IM USE) IV PRN ×6 (00:12→22:47)
[2018-06-22] MEDS: DILTIAZEM HCL 30MG TABLET PO SCH ×5 (00:12→23:33)
[2018-06-22 04:00] VITALS: BP 132/80
[2018-06-22] MEDS: DIPHENHYDRAMINE 50MG/ML VIAL IV PRN ×3 (05:13→21:31)
[2018-06-22] MEDS: HYDRALAZINE HCL 100MG TABLET PO SCH ×3 (05:13→21:29)
[2018-06-22] MEDS: CLONIDINE 0.3MG TABLET PO SCH ×3 (05:15→21:31)
[2018-06-22 06:34] LABS: HEMATOCRIT. 31.7 % (42.0-52.0); HEMOGLOBIN. 10.5 g/dL (14.0-18.0); MEAN CORPUSCULAR HEMOGLOBIN 27.1 pg (28.0-32.0); MEAN CORPUSCULAR VOLUME 81.7 fL (80.0-94.0); MEAN PLATELET VOLUME 7.8 fl (7.4-10.4); PLATELET 200 x1000/uL (130-400); RED BLOOD CELL COUNT 3.88 mill/uL (4.7-6.1); RED CELL DISTRIBUTION WIDTH 17.4 % (11.6-14.6)
[2018-06-22 08:00] VITALS: BP_SYST 111; BP_SYST 123; BP_DIAS 64; BP_DIAS 70
[2018-06-22] MEDS: FUROSEMIDE 40MG TABLET PO SCH ×2 (08:36→21:28)
[2018-06-22] MEDS: SEVELAMER CARBONATE 800 MG TABLET PO SCH ×3 (08:36→17:52)
[2018-06-22] MEDS: LOSARTAN POTASSIUM 100 MG TABLET PO SCH (08:36)
[2018-06-22] MEDS: MINOXIDIL 10MG TABLET PO SCH ×2 (08:36→16:20)
[2018-06-22] MEDS: AMLODIPINE 2.5MG TABLET PO SCH (08:37)
[2018-06-22] MEDS: LEVETIRACETAM 500MG TABLET PO SCH ×2 (09:03→21:28)
[2018-06-22] MEDS: NICOTINE 14MG PATCH TD SCH (09:03)
[2018-06-22 12:00] VITALS: BP 106/66
[2018-06-22 13:19] LABS: PLATELET ESTIMATE NORMAL
[2018-06-22 16:00] VITALS: BP 138/95
[2018-06-22 20:00] VITALS: BP 138/91
[2018-06-22] MEDS: FAMOTIDINE 20MG TABLET PO SCH (21:28)
[2018-06-22] MEDS: ONDANSETRON HCL 4MG/2ML INJ IV PRN (21:31)
[2018-06-22] MEDS: CEFTRIAXONE 1 G PREMIX 50 ML IV SCH (22:46)
[2018-06-23] VITALS: BP 121/78
[2018-06-23] MEDS: MORPHINE SULFATE 4 MG/ML CPJ (NOT FOR IM USE) IV PRN ×4 (02:59→21:27)
[2018-06-23 04:00] VITALS: BP 123/79
[2018-06-23] MEDS: CLONIDINE 0.3MG TABLET PO SCH ×3 (05:56→21:23)
[2018-06-23] MEDS: HYDRALAZINE HCL 100MG TABLET PO SCH ×3 (05:56→21:22)
[2018-06-23] MEDS: DILTIAZEM HCL 30MG TABLET PO SCH ×4 (05:56→23:43)
[2018-06-23] MEDS: DIPHENHYDRAMINE 50MG/ML VIAL IV PRN ×3 (05:57→23:44)
[2018-06-23 06:44] LABS: HEMOGLOBIN. 10.7 g/dL (14.0-18.0); MEAN CORPUSCULAR HEMOGLOBIN 27.2 pg (28.0-32.0); MEAN CORPUSCULAR VOLUME 81.4 fL (80.0-94.0); MEAN PLATELET VOLUME 7.8 fl (7.4-10.4); PLATELET 202 x1000/uL (130-400); RED BLOOD CELL COUNT 3.94 mill/uL (4.7-6.1); RED CELL DISTRIBUTION WIDTH 17.2 % (11.6-14.6)
[2018-06-23 08:00] VITALS: BP 120/86
[2018-06-23] MEDS: MINOXIDIL 10MG TABLET PO SCH ×2 (08:22→17:25)
[2018-06-23] MEDS: AMLODIPINE 2.5MG TABLET PO SCH (08:22)
[2018-06-23] MEDS: LOSARTAN POTASSIUM 100 MG TABLET PO SCH (08:23)
[2018-06-23] MEDS: NICOTINE 14MG PATCH TD SCH (08:23)
[2018-06-23] MEDS: SEVELAMER CARBONATE 800 MG TABLET PO SCH ×3 (08:23→17:25)
[2018-06-23] MEDS: FUROSEMIDE 40MG TABLET PO SCH ×2 (08:23→21:22)
[2018-06-23] MEDS: LEVETIRACETAM 500MG TABLET PO SCH ×2 (08:23→21:22)
[2018-06-23 12:00] VITALS: BP 116/70
[2018-06-23 13:40] LABS: PLATELET ESTIMATE NORMAL
[2018-06-23 16:00] VITALS: BP 136/85
[2018-06-23 20:00] VITALS: BP 135/86
[2018-06-23] MEDS: FAMOTIDINE 20MG TABLET PO SCH (21:22)
[2018-06-23] MEDS: CEFTRIAXONE 1 G PREMIX 50 ML IV SCH (21:24)
[2018-06-24] MEDS: MORPHINE SULFATE 4 MG/ML CPJ (NOT FOR IM USE) IV PRN ×3 (02:18→13:47)
[2018-06-24] MEDS: HYDRALAZINE HCL 100MG TABLET PO SCH ×2 (05:52→14:00)
[2018-06-24] MEDS: DILTIAZEM HCL 30MG TABLET PO SCH ×3 (05:52→17:19)
[2018-06-24] MEDS: CLONIDINE 0.3MG TABLET PO SCH ×2 (05:53→14:00)
[2018-06-24 08:00] VITALS: BP 119/66
[2018-06-24] MEDS: NICOTINE 14MG PATCH TD SCH (09:00)
[2018-06-24] MEDS: LOSARTAN POTASSIUM 100 MG TABLET PO SCH (09:00)
[2018-06-24] MEDS: SEVELAMER CARBONATE 800 MG TABLET PO SCH ×2 (09:00→12:10)
[2018-06-24] MEDS: FUROSEMIDE 40MG TABLET PO SCH (09:15)
[2018-06-24] MEDS: DIPHENHYDRAMINE 50MG/ML VIAL IV PRN ×2 (09:15→17:19)
[2018-06-24] MEDS: LEVETIRACETAM 500MG TABLET PO SCH (09:15)
[2018-06-24] MEDS: MINOXIDIL 10MG TABLET PO SCH ×2 (09:16→17:19)
[2018-06-24] MEDS: AMLODIPINE 2.5MG TABLET PO SCH (09:16)
[2018-06-24 12:03] VITALS: BP 104/60
[2018-06-24 16:00] VITALS: BP 116/72
[2018-06-24] MEDS ORDERED: HEPARIN SODIUM 1,000 UNIT/1ML VIAL IV NR (16:30)
[2018-06-24] MEDS ORDERED: CLON0.3T4 PO (16:59)
[2018-06-24] MEDS ORDERED: DILT30TA38 PO (16:59)
[2018-06-24] MEDS ORDERED: FAMO20TA8 PO (16:59)
[2018-06-24 17:58] VITALS: BP 116/72
== END 2018-06-24 19:26 | disposition home or self-care (01) | DRG 133 ==
LOC: ER 05:37 → 8WST 09:11 → EDBEDREQ 09:15 → ENRESERV 11:16 → 8WST 06-19 05:27 → 6EST 06-20 11:05
PROVIDERS: ADMIT Internal Medicine; ATTEND Internal Medicine
PROC: 5A1D70Z Performance of Urinary Filtration, Intermittent, Less than 6 Hours Per Day (ICD-10-PCS; principal; 2018-06-11)
PROC: 5A1D70Z Performance of Urinary Filtration, Intermittent, Less than 6 Hours Per Day (ICD-10-PCS; 2018-06-12)
PROC: 5A1D70Z Performance of Urinary Filtration, Intermittent, Less than 6 Hours Per Day (ICD-10-PCS; 2018-06-13)
PROC: 5A1D70Z Performance of Urinary Filtration, Intermittent, Less than 6 Hours Per Day (ICD-10-PCS; 2018-06-15)
PROC: 5A1D70Z Performance of Urinary Filtration, Intermittent, Less than 6 Hours Per Day (ICD-10-PCS; 2018-06-18)
PROC: 5A1D70Z Performance of Urinary Filtration, Intermittent, Less than 6 Hours Per Day (ICD-10-PCS; 2018-06-20)
PROC: 5A1D70Z Performance of Urinary Filtration, Intermittent, Less than 6 Hours Per Day (ICD-10-PCS; 2018-06-21)
PROC: 5A1D70Z Performance of Urinary Filtration, Intermittent, Less than 6 Hours Per Day (ICD-10-PCS; 2018-06-23)
DX: J96.00 Acute respiratory failure, unspecified whether with hypoxia or hypercapnia (principal); I13.2 Hypertensive heart and chronic kidney disease with heart failure and with stage 5 chronic kidney disease, or end stage renal disease; D68.9 Coagulation defect, unspecified; I27.20 Pulmonary hypertension, unspecified; N18.6 End stage renal disease; I07.1 Rheumatic tricuspid insufficiency; E87.70 Fluid overload, unspecified; J44.9 Chronic obstructive pulmonary disease, unspecified; I16.0 Hypertensive urgency; I50.33 Acute on chronic diastolic (congestive) heart failure; D50.9 Iron deficiency anemia, unspecified; D63.8 Anemia in other chronic diseases classified elsewhere; E78.5 Hyperlipidemia, unspecified; I70.0 Atherosclerosis of aorta; F17.210 Nicotine dependence, cigarettes, uncomplicated; G40.909 Epilepsy, unspecified, not intractable, without status epilepticus; K21.9 Gastro-esophageal reflux disease without esophagitis; F17.200 Nicotine dependence, unspecified, uncomplicated; F14.10 Cocaine abuse, uncomplicated; E78.00 Pure hypercholesterolemia, unspecified; Z87.820 Personal history of traumatic brain injury; Z99.2 Dependence on renal dialysis; Z91.15 Patient's noncompliance with renal dialysis; Z91.19 Patient's noncompliance with other medical treatment and regimen
CPT/HCPCS: 36415; 71045; 80048; 80305; 80320; 83605; 83880; 84484; 93005; 94640; 96374; 99285; C1893; J0696; J0885; J1200; J1644; J2270; J2405; J7040; J7050; J7620; G0480

== ENCOUNTER 2018-07-02 00:36 | Emergency (ER) | payer MEDICAID ==
[~2018-07-02] VITALS: Ht 170.2 cm; Wt 65.8 kg
[~2018-07-02 00:36] MED LIST changes: +AMLO2.5T45 MT; -CLON0.1T14 PO; +CLON0.3T4 PO; +CLON1PAT10 TP; -DILT300C35 PO; +DILT30TA38 PO; +FAMO20TA8 PO; +FOLI0.8C MT; +FURO80TA87 MT; +MINO10TA MT
[2018-07-02 01:28] LABS: BASOPHILS % 0.6 % (0.0-2.0); EOSINOPHILS % 0.1 % (0.0-5.0); HEMATOCRIT. 35.6 % (42.0-52.0); HEMOGLOBIN. 11.8 g/dL (14.0-18.0); LYMPHOCYTES % 7.2 % (20.0-50.0); MEAN CORPUSCULAR HEMOGLOBIN 26.7 pg (28.0-32.0); MEAN CORPUSCULAR VOLUME 80.9 fL (80.0-94.0); MEAN PLATELET VOLUME 7.5 fl (7.4-10.4); MONOCYTES % 8.2 % (2.0-8.0); NEUTROPHILS % 83.9 % (40.0-76.0); PLATELET 344 x1000/uL (130-400)
[2018-07-02 01:34] LABS: CHLORIDE 97 mEq/L (98-107)
[2018-07-02] MEDS ORDERED: DOCUSATE SODIUM 100MG CAPSULE PO ONE (05:15)
[2018-07-02] MEDS ORDERED: IBUPROFEN 600MG TABLET PO ONE (05:15)
[2018-07-02 05:57] VITALS: BP 139/92
== END 2018-07-02 08:02 | disposition home or self-care (01) ==
LOC: ER 00:43 → CANBEDREQ 08:08
DX: R10.9 Unspecified abdominal pain (principal); I12.0 Hypertensive chronic kidney disease with stage 5 chronic kidney disease or end stage renal disease; N18.6 End stage renal disease; Z99.2 Dependence on renal dialysis; Z88.8 Allergy status to other drugs, medicaments and biological substances
CPT/HCPCS: 36415; 74018; 99284

== ENCOUNTER 2018-07-15 12:19 | Inpatient (IN) | payer MEDICAID ==
[~2018-07-15] VITALS: Ht 170.2 cm; Wt 68.5 kg
[2018-07-15] MEDS ORDERED: CLONIDINE 0.2MG TABLET PO ONE (13:00)
[2018-07-15] MEDS ORDERED: LEVETIRACETAM 1000MG/100ML 100 ML IV ONE (13:00)
[2018-07-15 13:11] LABS: BASOPHILS % 0.7 % (0.0-2.0); HEMATOCRIT. 28.4 % (42.0-52.0); HEMOGLOBIN. 9.4 g/dL (14.0-18.0); LYMPHOCYTES % 16.1 % (20.0-50.0); MEAN CORPUSCULAR HEMOGLOBIN 27.4 pg (28.0-32.0); MEAN PLATELET VOLUME 7.4 fl (7.4-10.4); MONOCYTES % 11.1 % (2.0-8.0); NEUTROPHILS % 68.1 % (40.0-76.0); PLATELET 174 x1000/uL (130-400); RED BLOOD CELL COUNT 3.43 mill/uL (4.7-6.1); RED CELL DISTRIBUTION WIDTH 18.3 % (11.6-14.6)
[2018-07-15 13:15] LABS: CHLORIDE 102 mEq/L (98-107)
[2018-07-15 13:16] LABS: PROTHROMBIN TIME 10.7 sec (9.6-11.0)
[2018-07-15 16:43] VITALS: BP 177/126
[2018-07-15 17:00] VITALS: BP 161/116
[2018-07-15] MEDS ORDERED: DOCUSATE SODIUM 100MG CAPSULE PO PRN (17:15)
[2018-07-15] MEDS ORDERED: IPRATROPIUM/ALBUTEROL 0.5-3(2.5)MG/3ML NEB INH PRN (17:15)
[2018-07-15] MEDS ORDERED: CLONIDINE 0.1MG TABLET PO PRN (17:15)
[2018-07-15] MEDS ORDERED: HYDROCODONE/ACETAMINOPHEN 10/325MG TABLET PO PRN (17:15)
[2018-07-15] MEDS ORDERED: ONDANSETRON HCL 4MG/2ML INJ IV PRN (17:15)
[2018-07-15] MEDS ORDERED: LORAZEPAM 0.5MG TABLET PO PRN (17:15)
[2018-07-15 18:01] VITALS: BP 183/133
[2018-07-15] MEDS: DIPHENHYDRAMINE 50MG/ML VIAL IV PRN (18:18)
[2018-07-15 20:00] VITALS: BP 171/127
[2018-07-15] MEDS: EPOETIN ALFA 10000UNITS/ML VIAL SUBCUT SCH (20:42)
[2018-07-15] MEDS: MORPHINE SULFATE 4 MG/ML CPJ (NOT FOR IM USE) IV PRN (20:54)
[2018-07-15 21:00] VITALS: BP 171/131
[2018-07-15 22:00] VITALS: BP 174/142
[2018-07-15] MEDS ORDERED: LORAZEPAM 2MG/ML CPJ IV PRN (22:00)
[2018-07-15] MEDS: HYDRALAZINE HCL 100MG TABLET PO SCH (22:29)
[2018-07-15] MEDS: AMLODIPINE 2.5MG TABLET PO SCH (22:30)
[2018-07-15] MEDS: FOLIC ACID/VITAMIN B COMP W-C TABLET PO SCH (22:31)
[2018-07-15] MEDS: CLONIDINE 0.3MG TABLET PO SCH (22:31)
[2018-07-15] MEDS: LOSARTAN POTASSIUM 100 MG TABLET PO SCH (22:31)
[2018-07-16] VITALS (25 sets, daily range): BP systolic 100–148; BP diastolic 54–138
[2018-07-16] MEDS: DIPHENHYDRAMINE 50MG/ML VIAL IV PRN ×4 (06:08→22:12)
[2018-07-16] MEDS: SEVELAMER CARBONATE 800 MG TABLET PO SCH ×3 (06:08→17:59)
[2018-07-16] MEDS: HYDRALAZINE HCL 100MG TABLET PO SCH ×3 (06:08→21:45)
[2018-07-16] MEDS: CLONIDINE 0.3MG TABLET PO SCH ×3 (06:08→21:44)
[2018-07-16 06:30] LABS: BASOPHILS % 1.1 % (0.0-2.0); HEMATOCRIT. 28.3 % (42.0-52.0); HEMOGLOBIN. 9.4 g/dL (14.0-18.0); LYMPHOCYTES % 26.1 % (20.0-50.0); MEAN CORPUSCULAR HEMOGLOBIN 27.3 pg (28.0-32.0); MEAN CORPUSCULAR VOLUME 82.1 fL (80.0-94.0); MEAN PLATELET VOLUME 7.5 fl (7.4-10.4); MONOCYTES % 13.5 % (2.0-8.0); NEUTROPHILS % 54.3 % (40.0-76.0); PLATELET 167 x1000/uL (130-400); RED BLOOD CELL COUNT 3.45 mill/uL (4.7-6.1); RED CELL DISTRIBUTION WIDTH 18.8 % (11.6-14.6)
[2018-07-16] MEDS: LOSARTAN POTASSIUM 100 MG TABLET PO SCH (09:00)
[2018-07-16] MEDS ORDERED: CLONIDINE HCL 0.1MG/24HR PATCH TD SCH (09:00)
[2018-07-16] MEDS ORDERED: DILTIAZEM HCL 30MG TABLET PO SCH (09:00)
[2018-07-16] MEDS: LEVETIRACETAM 500MG TABLET PO SCH ×2 (10:03→20:53)
[2018-07-16] MEDS: AMLODIPINE 2.5MG TABLET PO SCH (10:04)
[2018-07-16] MEDS: MINOXIDIL 10MG TABLET PO SCH ×2 (10:04→17:59)
[2018-07-16] MEDS: FUROSEMIDE 40MG TABLET PO SCH ×2 (10:04→20:53)
[2018-07-16] MEDS: FOLIC ACID/VITAMIN B COMP W-C TABLET PO SCH (10:07)
[2018-07-16] MEDS: MORPHINE SULFATE 4 MG/ML CPJ (NOT FOR IM USE) IV PRN ×3 (10:34→20:56)
[2018-07-16] MEDS ORDERED: SEVELAMER CARBONATE 800 MG TABLET PO SCH (12:20)
[2018-07-16] MEDS: FAMOTIDINE 20MG TABLET PO SCH (20:53)
[2018-07-17] VITALS (12 sets, daily range): BP systolic 94–130; BP diastolic 54–86
[2018-07-17] MEDS: ZOLPIDEM TARTRATE 5MG TABLET PO PRN ×2 (01:59→22:51)
[2018-07-17] MEDS: MORPHINE SULFATE 4 MG/ML CPJ (NOT FOR IM USE) IV PRN ×4 (02:49→22:54)
[2018-07-17] MEDS: HYDRALAZINE HCL 100MG TABLET PO SCH ×3 (06:28→21:15)
[2018-07-17 07:28] LABS: BASOPHILS % 1.2 % (0.0-2.0); EOSINOPHILS % 4.6 % (0.0-5.0); HEMATOCRIT. 32.7 % (42.0-52.0); HEMOGLOBIN. 10.7 g/dL (14.0-18.0); LYMPHOCYTES % 20.1 % (20.0-50.0); MEAN CORPUSCULAR HEMOGLOBIN 27.2 pg (28.0-32.0); MEAN CORPUSCULAR VOLUME 83.2 fL (80.0-94.0); MEAN PLATELET VOLUME 7.7 fl (7.4-10.4); MONOCYTES % 12.3 % (2.0-8.0); NEUTROPHILS % 61.8 % (40.0-76.0); PLATELET 191 x1000/uL (130-400); RED BLOOD CELL COUNT 3.93 mill/uL (4.7-6.1); RED CELL DISTRIBUTION WIDTH 18.9 % (11.6-14.6)
[2018-07-17] MEDS: SEVELAMER CARBONATE 800 MG TABLET PO SCH ×3 (08:06→17:41)
[2018-07-17] MEDS: DIPHENHYDRAMINE 50MG/ML VIAL IV PRN ×2 (08:28→17:50)
[2018-07-17] MEDS: FUROSEMIDE 40MG TABLET PO SCH ×2 (08:38→21:09)
[2018-07-17] MEDS: FOLIC ACID/VITAMIN B COMP W-C TABLET PO SCH (08:38)
[2018-07-17] MEDS: MINOXIDIL 10MG TABLET PO SCH ×2 (09:00→17:41)
[2018-07-17] MEDS: LOSARTAN POTASSIUM 100 MG TABLET PO SCH (09:00)
[2018-07-17] MEDS: AMLODIPINE 2.5MG TABLET PO SCH (09:00)
[2018-07-17] MEDS: LEVETIRACETAM 500MG TABLET PO SCH ×2 (12:16→21:09)
[2018-07-17] MEDS: FAMOTIDINE 20MG TABLET PO SCH (21:09)
[2018-07-18] VITALS (26 sets, daily range): BP systolic 96–159; BP diastolic 52–100
[2018-07-18] MEDS: MORPHINE SULFATE 4 MG/ML CPJ (NOT FOR IM USE) IV PRN ×3 (04:49→20:00)
[2018-07-18] MEDS: DIPHENHYDRAMINE 50MG/ML VIAL IV PRN ×3 (04:50→18:03)
[2018-07-18] MEDS: HYDRALAZINE HCL 100MG TABLET PO SCH ×3 (05:09→21:15)
[2018-07-18 06:25] LABS: HEMATOCRIT. 29.9 % (42.0-52.0); HEMOGLOBIN. 9.8 g/dL (14.0-18.0); MEAN CORPUSCULAR VOLUME 82.1 fL (80.0-94.0); MEAN PLATELET VOLUME 7.7 fl (7.4-10.4); PLATELET 185 x1000/uL (130-400); RED BLOOD CELL COUNT 3.64 mill/uL (4.7-6.1); RED CELL DISTRIBUTION WIDTH 18.3 % (11.6-14.6)
[2018-07-18] MEDS: SEVELAMER CARBONATE 800 MG TABLET PO SCH ×3 (07:20→18:03)
[2018-07-18] MEDS: DILTIAZEM HCL 120MG CAPSULE CD 24HR PO SCH (11:00)
[2018-07-18] MEDS: LEVETIRACETAM 500MG TABLET PO SCH ×2 (12:00→21:12)
[2018-07-18] MEDS: FOLIC ACID/VITAMIN B COMP W-C TABLET PO SCH (12:00)
[2018-07-18] MEDS: FUROSEMIDE 40MG TABLET PO SCH ×2 (12:00→21:12)
[2018-07-18 13:28] LABS: PLATELET ESTIMATE NORMAL
[2018-07-18] MEDS: AMLODIPINE 2.5MG TABLET PO SCH (13:59)
[2018-07-18] MEDS: MINOXIDIL 10MG TABLET PO SCH ×2 (14:00→18:02)
[2018-07-18] MEDS: LOSARTAN POTASSIUM 100 MG TABLET PO SCH (14:00)
[2018-07-18] MEDS: EPOETIN ALFA 10000UNITS/ML VIAL SUBCUT SCH (21:00)
[2018-07-18] MEDS: FAMOTIDINE 20MG TABLET PO SCH (21:13)
[2018-07-18] MEDS: CLONIDINE HCL 0.3MG/24HR PATCH TD SCH (21:14)
[2018-07-18] MEDS: ZOLPIDEM TARTRATE 5MG TABLET PO PRN (21:15)
[2018-07-19] VITALS (10 sets, daily range): BP systolic 100–133; BP diastolic 47–86
[2018-07-19] MEDS: MORPHINE SULFATE 4 MG/ML CPJ (NOT FOR IM USE) IV PRN ×4 (05:11→20:55)
[2018-07-19] MEDS: DIPHENHYDRAMINE 50MG/ML VIAL IV PRN ×4 (05:15→22:23)
[2018-07-19] MEDS: HYDRALAZINE HCL 100MG TABLET PO SCH ×3 (05:27→21:33)
[2018-07-19 06:51] LABS: HEMATOCRIT. 28.8 % (42.0-52.0); HEMOGLOBIN. 9.5 g/dL (14.0-18.0); MEAN CORPUSCULAR HEMOGLOBIN 27.2 pg (28.0-32.0); MEAN CORPUSCULAR VOLUME 82.6 fL (80.0-94.0); MEAN PLATELET VOLUME 7.7 fl (7.4-10.4); PLATELET 186 x1000/uL (130-400); RED BLOOD CELL COUNT 3.49 mill/uL (4.7-6.1); RED CELL DISTRIBUTION WIDTH 18.5 % (11.6-14.6)
[2018-07-19 08:19] LABS: ATYPICAL LYMPHOCYTES 1; PLATELET ESTIMATE NORMAL
[2018-07-19] MEDS: AMLODIPINE 2.5MG TABLET PO SCH (09:00)
[2018-07-19] MEDS: MINOXIDIL 10MG TABLET PO SCH ×2 (09:00→16:23)
[2018-07-19] MEDS: LOSARTAN POTASSIUM 100 MG TABLET PO SCH (09:00)
[2018-07-19] MEDS: DILTIAZEM HCL 120MG CAPSULE CD 24HR PO SCH ×2 (09:00→11:07)
[2018-07-19] MEDS: SEVELAMER CARBONATE 800 MG TABLET PO SCH ×2 (11:03→19:05)
[2018-07-19] MEDS: LEVETIRACETAM 500MG TABLET PO SCH ×2 (11:04→20:45)
[2018-07-19] MEDS: FOLIC ACID/VITAMIN B COMP W-C TABLET PO SCH (11:05)
[2018-07-19] MEDS: FUROSEMIDE 40MG TABLET PO SCH ×2 (11:05→20:45)
[2018-07-19] MEDS: FAMOTIDINE 20MG TABLET PO SCH (20:45)
[2018-07-19] MEDS: ZOLPIDEM TARTRATE 5MG TABLET PO PRN (21:42)
[2018-07-20 00:05] VITALS: BP 122/69
[2018-07-20 04:00] VITALS: BP 130/71
[2018-07-20] MEDS: DIPHENHYDRAMINE 50MG/ML VIAL IV PRN ×3 (04:45→19:55)
[2018-07-20] MEDS: MORPHINE SULFATE 4 MG/ML CPJ (NOT FOR IM USE) IV PRN ×5 (04:45→22:36)
[2018-07-20] MEDS: HYDRALAZINE HCL 100MG TABLET PO SCH ×3 (05:47→21:03)
[2018-07-20 07:04] LABS: HEMATOCRIT. 29.5 % (42.0-52.0); HEMOGLOBIN. 9.8 g/dL (14.0-18.0); MEAN CORPUSCULAR HEMOGLOBIN 27.5 pg (28.0-32.0); MEAN CORPUSCULAR VOLUME 82.8 fL (80.0-94.0); MEAN PLATELET VOLUME 7.7 fl (7.4-10.4); PLATELET 200 x1000/uL (130-400); RED BLOOD CELL COUNT 3.56 mill/uL (4.7-6.1)
[2018-07-20 08:00] VITALS: BP 141/96
[2018-07-20] MEDS: LOSARTAN POTASSIUM 100 MG TABLET PO SCH (09:01)
[2018-07-20] MEDS: LEVETIRACETAM 500MG TABLET PO SCH ×2 (09:01→22:37)
[2018-07-20] MEDS: SEVELAMER CARBONATE 800 MG TABLET PO SCH ×3 (09:01→18:41)
[2018-07-20] MEDS: AMLODIPINE 2.5MG TABLET PO SCH (09:01)
[2018-07-20] MEDS: FOLIC ACID/VITAMIN B COMP W-C TABLET PO SCH (09:01)
[2018-07-20] MEDS: MINOXIDIL 10MG TABLET PO SCH ×2 (09:01→17:00)
[2018-07-20] MEDS: FUROSEMIDE 40MG TABLET PO SCH ×2 (09:02→21:00)
[2018-07-20] MEDS: DILTIAZEM HCL 120MG CAPSULE CD 24HR PO SCH (09:02)
[2018-07-20 11:34] LABS: PLATELET ESTIMATE NORMAL
[2018-07-20 12:00] VITALS: BP 110/55
[2018-07-20 16:00] VITALS: BP 102/54
[2018-07-20 20:00] VITALS: BP 102/57
[2018-07-20] MEDS: FAMOTIDINE 20MG TABLET PO SCH (22:37)
[2018-07-20] MEDS: EPOETIN ALFA 10000UNITS/ML VIAL SUBCUT SCH (22:37)
[2018-07-21] VITALS: BP 126/79
[2018-07-21] MEDS ORDERED: ACETAMINOPHEN 325MG TABLET PO PRN (02:15)
[2018-07-21] MEDS: DIPHENHYDRAMINE 50MG/ML VIAL IV PRN ×4 (02:16→21:50)
[2018-07-21] MEDS: MORPHINE SULFATE 4 MG/ML CPJ (NOT FOR IM USE) IV PRN ×4 (02:16→21:52)
[2018-07-21 04:00] VITALS: BP 129/73
[2018-07-21 06:29] LABS: BASOPHILS % 0.8 % (0.0-2.0); EOSINOPHILS % 4.9 % (0.0-5.0); HEMATOCRIT. 28.4 % (42.0-52.0); HEMOGLOBIN. 9.4 g/dL (14.0-18.0); LYMPHOCYTES % 20.2 % (20.0-50.0); MEAN CORPUSCULAR HEMOGLOBIN 27.4 pg (28.0-32.0); MEAN CORPUSCULAR VOLUME 82.9 fL (80.0-94.0); MEAN PLATELET VOLUME 7.7 fl (7.4-10.4); MONOCYTES % 14.5 % (2.0-8.0); NEUTROPHILS % 59.6 % (40.0-76.0); PLATELET 186 x1000/uL (130-400); RED BLOOD CELL COUNT 3.43 mill/uL (4.7-6.1); RED CELL DISTRIBUTION WIDTH 18.2 % (11.6-14.6)
[2018-07-21] MEDS: HYDRALAZINE HCL 100MG TABLET PO SCH ×3 (06:44→22:00)
[2018-07-21 08:00] VITALS: BP 157/97
[2018-07-21] MEDS: AMLODIPINE 2.5MG TABLET PO SCH (08:53)
[2018-07-21] MEDS: FOLIC ACID/VITAMIN B COMP W-C TABLET PO SCH (08:54)
[2018-07-21] MEDS: SEVELAMER CARBONATE 800 MG TABLET PO SCH ×3 (08:54→17:18)
[2018-07-21] MEDS: MINOXIDIL 10MG TABLET PO SCH ×2 (08:55→16:35)
[2018-07-21] MEDS: LEVETIRACETAM 500MG TABLET PO SCH ×2 (08:55→21:53)
[2018-07-21] MEDS: FUROSEMIDE 40MG TABLET PO SCH ×2 (08:55→21:00)
[2018-07-21] MEDS: DILTIAZEM HCL 120MG CAPSULE CD 24HR PO SCH (08:55)
[2018-07-21] MEDS: LOSARTAN POTASSIUM 100 MG TABLET PO SCH (08:56)
[2018-07-21 12:00] VITALS: BP 148/86
[2018-07-21 16:00] VITALS: BP 134/70
[2018-07-21 20:00] VITALS: BP 117/62
[2018-07-21] MEDS: FAMOTIDINE 20MG TABLET PO SCH (21:00)
[2018-07-21] MEDS: EPOETIN ALFA 10000UNITS/ML VIAL SUBCUT SCH (21:00)
[2018-07-22] VITALS: BP 118/69
[2018-07-22 04:00] VITALS: BP 120/62
[2018-07-22] MEDS: HYDRALAZINE HCL 100MG TABLET PO SCH ×3 (06:00→21:29)
[2018-07-22 08:00] VITALS: BP 131/84
[2018-07-22] MEDS: FUROSEMIDE 40MG TABLET PO SCH ×2 (08:25→20:31)
[2018-07-22] MEDS: LEVETIRACETAM 500MG TABLET PO SCH ×2 (08:25→20:31)
[2018-07-22] MEDS: SEVELAMER CARBONATE 800 MG TABLET PO SCH ×3 (08:25→17:53)
[2018-07-22] MEDS: DILTIAZEM HCL 120MG CAPSULE CD 24HR PO SCH (08:26)
[2018-07-22] MEDS: AMLODIPINE 2.5MG TABLET PO SCH (08:26)
[2018-07-22] MEDS: FOLIC ACID/VITAMIN B COMP W-C TABLET PO SCH (08:26)
[2018-07-22] MEDS: LOSARTAN POTASSIUM 100 MG TABLET PO SCH (08:26)
[2018-07-22] MEDS: MINOXIDIL 10MG TABLET PO SCH ×3 (08:27→17:53)
[2018-07-22] MEDS: DIPHENHYDRAMINE 50MG/ML VIAL IV PRN ×3 (08:27→20:31)
[2018-07-22] MEDS: MORPHINE SULFATE 4 MG/ML CPJ (NOT FOR IM USE) IV PRN ×4 (08:28→23:20)
[2018-07-22] MEDS ORDERED: CLONIDINE HCL 0.1MG/24HR PATCH TD SCH (09:00)
[2018-07-22 12:00] VITALS: BP 134/82
[2018-07-22 16:00] VITALS: BP 99/48
[2018-07-22 20:00] VITALS: BP 124/71
[2018-07-22] MEDS: FAMOTIDINE 20MG TABLET PO SCH (20:30)
[2018-07-23] VITALS: BP 116/66
[2018-07-23] MEDS: DIPHENHYDRAMINE 50MG/ML VIAL IV PRN ×4 (02:33→18:36)
[2018-07-23] MEDS: MORPHINE SULFATE 4 MG/ML CPJ (NOT FOR IM USE) IV PRN ×4 (03:50→22:29)
[2018-07-23 04:00] VITALS: BP 111/65
[2018-07-23] MEDS: HYDRALAZINE HCL 100MG TABLET PO SCH ×3 (05:50→21:27)
[2018-07-23 06:21] LABS: HEMATOCRIT. 30.2 % (42.0-52.0); HEMOGLOBIN. 9.9 g/dL (14.0-18.0); MEAN CORPUSCULAR VOLUME 82.1 fL (80.0-94.0); MEAN PLATELET VOLUME 7.5 fl (7.4-10.4); PLATELET 191 x1000/uL (130-400); RED BLOOD CELL COUNT 3.68 mill/uL (4.7-6.1); RED CELL DISTRIBUTION WIDTH 18.1 % (11.6-14.6)
[2018-07-23] MEDS: FUROSEMIDE 40MG TABLET PO SCH ×2 (08:46→21:26)
[2018-07-23] MEDS: LOSARTAN POTASSIUM 100 MG TABLET PO SCH (08:46)
[2018-07-23] MEDS: AMLODIPINE 2.5MG TABLET PO SCH (08:47)
[2018-07-23] MEDS: MINOXIDIL 10MG TABLET PO SCH ×2 (08:47→17:00)
[2018-07-23] MEDS: LEVETIRACETAM 500MG TABLET PO SCH ×2 (08:49→21:26)
[2018-07-23] MEDS: DILTIAZEM HCL 120MG CAPSULE CD 24HR PO SCH (08:50)
[2018-07-23] MEDS: SEVELAMER CARBONATE 800 MG TABLET PO SCH ×3 (08:50→18:36)
[2018-07-23] MEDS: FOLIC ACID/VITAMIN B COMP W-C TABLET PO SCH (09:00)
[2018-07-23 11:26] LABS: PLATELET ESTIMATE NORMAL
[2018-07-23 16:00] VITALS: BP 96/68
[2018-07-23 20:00] VITALS: BP 105/65
[2018-07-23] MEDS: FAMOTIDINE 20MG TABLET PO SCH (21:26)
[2018-07-23] MEDS: EPOETIN ALFA 10000UNITS/ML VIAL SUBCUT SCH (21:27)
[2018-07-24] VITALS: BP 128/88
[2018-07-24] MEDS: DIPHENHYDRAMINE 50MG/ML VIAL IV PRN ×4 (00:58→18:58)
[2018-07-24] MEDS: MORPHINE SULFATE 4 MG/ML CPJ (NOT FOR IM USE) IV PRN ×5 (02:31→22:41)
[2018-07-24 04:00] VITALS: BP 152/104
[2018-07-24] MEDS: HYDRALAZINE HCL 100MG TABLET PO SCH ×3 (06:33→21:48)
[2018-07-24] MEDS: FUROSEMIDE 40MG TABLET PO SCH ×2 (06:33→20:55)
[2018-07-24 07:01] LABS: HEMATOCRIT. 30.3 % (42.0-52.0); HEMOGLOBIN. 9.9 g/dL (14.0-18.0); MEAN CORPUSCULAR HEMOGLOBIN 27.6 pg (28.0-32.0); MEAN CORPUSCULAR VOLUME 84.2 fL (80.0-94.0); MEAN PLATELET VOLUME 7.5 fl (7.4-10.4); PLATELET 195 x1000/uL (130-400); RED BLOOD CELL COUNT 3.59 mill/uL (4.7-6.1); RED CELL DISTRIBUTION WIDTH 18.4 % (11.6-14.6)
[2018-07-24 08:00] VITALS: BP 166/104
[2018-07-24] MEDS: LOSARTAN POTASSIUM 100 MG TABLET PO SCH (09:29)
[2018-07-24] MEDS: FOLIC ACID/VITAMIN B COMP W-C TABLET PO SCH (09:29)
[2018-07-24] MEDS: LEVETIRACETAM 500MG TABLET PO SCH ×2 (09:29→20:55)
[2018-07-24] MEDS: SEVELAMER CARBONATE 800 MG TABLET PO SCH ×3 (09:29→19:01)
[2018-07-24] MEDS: AMLODIPINE 2.5MG TABLET PO SCH (09:30)
[2018-07-24] MEDS: MINOXIDIL 10MG TABLET PO SCH ×2 (09:30→17:00)
[2018-07-24] MEDS: DILTIAZEM HCL 120MG CAPSULE CD 24HR PO SCH (09:33)
[2018-07-24 11:07] LABS: PLATELET ESTIMATE NORMAL
[2018-07-24 16:00] VITALS: BP 115/57
[2018-07-24 20:00] VITALS: BP 117/67
[2018-07-24] MEDS: FAMOTIDINE 20MG TABLET PO SCH (20:56)
[2018-07-25] VITALS: BP 110/63
[2018-07-25] MEDS: DIPHENHYDRAMINE 50MG/ML VIAL IV PRN ×4 (00:37→18:22)
[2018-07-25 04:00] VITALS: BP 105/66
[2018-07-25] MEDS: MORPHINE SULFATE 4 MG/ML CPJ (NOT FOR IM USE) IV PRN ×5 (05:55→23:49)
[2018-07-25] MEDS: HYDRALAZINE HCL 100MG TABLET PO SCH ×4 (06:00→23:48)
[2018-07-25 08:00] VITALS: BP 120/75
[2018-07-25] MEDS: LOSARTAN POTASSIUM 100 MG TABLET PO SCH (08:45)
[2018-07-25] MEDS: LEVETIRACETAM 500MG TABLET PO SCH ×2 (08:45→20:43)
[2018-07-25] MEDS: SEVELAMER CARBONATE 800 MG TABLET PO SCH ×3 (08:45→18:22)
[2018-07-25] MEDS: AMLODIPINE 2.5MG TABLET PO SCH (08:45)
[2018-07-25] MEDS: MINOXIDIL 10MG TABLET PO SCH ×2 (08:46→16:58)
[2018-07-25] MEDS: FUROSEMIDE 40MG TABLET PO SCH ×2 (08:46→20:43)
[2018-07-25] MEDS: FOLIC ACID/VITAMIN B COMP W-C TABLET PO SCH (08:46)
[2018-07-25] MEDS: DILTIAZEM HCL 120MG CAPSULE CD 24HR PO SCH (08:47)
[2018-07-25] MEDS: CLONIDINE HCL 0.3MG/24HR PATCH TD SCH (10:03)
[2018-07-25 12:00] VITALS: BP 119/72
[2018-07-25] MEDS ORDERED: SODIUM POLYSTYRENE SULFONATE 15 G/60 ML BOT PO NR (14:30)
[2018-07-25 16:00] VITALS: BP 103/58
[2018-07-25 20:00] VITALS: BP 118/76
[2018-07-25] MEDS: FAMOTIDINE 20MG TABLET PO SCH (20:43)
[2018-07-25] MEDS ORDERED: ZOLPIDEM TARTRATE 5MG TABLET PO PRN (23:45)
[2018-07-26] VITALS: BP 122/78
[2018-07-26] MEDS: DIPHENHYDRAMINE 50MG/ML VIAL IV PRN ×3 (00:05→12:28)
[2018-07-26 04:00] VITALS: BP 118/76
[2018-07-26] MEDS: HYDRALAZINE HCL 100MG TABLET PO SCH ×2 (06:00→13:59)
[2018-07-26] MEDS: MORPHINE SULFATE 4 MG/ML CPJ (NOT FOR IM USE) IV PRN ×3 (06:05→14:03)
[2018-07-26 06:45] LABS: HEMATOCRIT. 31.8 % (42.0-52.0); HEMOGLOBIN. 10.6 g/dL (14.0-18.0); MEAN CORPUSCULAR HEMOGLOBIN 27.5 pg (28.0-32.0); MEAN CORPUSCULAR VOLUME 82.7 fL (80.0-94.0); MEAN PLATELET VOLUME 6.9 fl (7.4-10.4); PLATELET 165 x1000/uL (130-400); RED BLOOD CELL COUNT 3.85 mill/uL (4.7-6.1); RED CELL DISTRIBUTION WIDTH 18.8 % (11.6-14.6)
[2018-07-26 08:00] VITALS: BP 131/79
[2018-07-26] MEDS: FOLIC ACID/VITAMIN B COMP W-C TABLET PO SCH (08:22)
[2018-07-26] MEDS: LEVETIRACETAM 500MG TABLET PO SCH (08:22)
[2018-07-26] MEDS: SEVELAMER CARBONATE 800 MG TABLET PO SCH ×3 (08:22→18:10)
[2018-07-26] MEDS: FUROSEMIDE 40MG TABLET PO SCH (08:22)
[2018-07-26] MEDS: MINOXIDIL 10MG TABLET PO SCH ×2 (08:45→17:21)
[2018-07-26] MEDS: DILTIAZEM HCL 120MG CAPSULE CD 24HR PO SCH (08:45)
[2018-07-26] MEDS: LOSARTAN POTASSIUM 100 MG TABLET PO SCH (08:45)
[2018-07-26] MEDS: AMLODIPINE 2.5MG TABLET PO SCH (08:46)
[2018-07-26 12:00] VITALS: BP 126/76
[2018-07-26 16:00] VITALS: BP 150/110
[2018-07-26 16:01] LABS: PLATELET ESTIMATE NORMAL
[2018-07-26 16:37] VITALS: BP 149/85
== END 2018-07-26 18:10 | disposition home or self-care (01) | DRG 133 ==
LOC: ER 12:19 → 3WST 13:47 → EDBEDREQTM 13:51 → EDBEDREQ 13:51 → EDBEDREQSVC 13:51 → ENRESERV 14:33 → 7WST 07-19 15:37
PROVIDERS: ADMIT Internal Medicine; ATTEND Internal Medicine
PROC: 5A1D70Z Performance of Urinary Filtration, Intermittent, Less than 6 Hours Per Day (ICD-10-PCS; principal; 2018-07-15)
PROC: 5A1D70Z Performance of Urinary Filtration, Intermittent, Less than 6 Hours Per Day (ICD-10-PCS; 2018-07-16)
PROC: 5A1D70Z Performance of Urinary Filtration, Intermittent, Less than 6 Hours Per Day (ICD-10-PCS; 2018-07-18)
PROC: 5A1D70Z Performance of Urinary Filtration, Intermittent, Less than 6 Hours Per Day (ICD-10-PCS; 2018-07-21)
PROC: 5A1D70Z Performance of Urinary Filtration, Intermittent, Less than 6 Hours Per Day (ICD-10-PCS; 2018-07-23)
PROC: 5A1D70Z Performance of Urinary Filtration, Intermittent, Less than 6 Hours Per Day (ICD-10-PCS; 2018-07-24)
PROC: 5A1D70Z Performance of Urinary Filtration, Intermittent, Less than 6 Hours Per Day (ICD-10-PCS; 2018-07-25)
DX: J96.00 Acute respiratory failure, unspecified whether with hypoxia or hypercapnia (principal); I13.2 Hypertensive heart and chronic kidney disease with heart failure and with stage 5 chronic kidney disease, or end stage renal disease; E87.70 Fluid overload, unspecified; E87.5 Hyperkalemia; G40.909 Epilepsy, unspecified, not intractable, without status epilepticus; I16.0 Hypertensive urgency; N18.6 End stage renal disease; I50.32 Chronic diastolic (congestive) heart failure; E78.5 Hyperlipidemia, unspecified; K21.9 Gastro-esophageal reflux disease without esophagitis; D63.8 Anemia in other chronic diseases classified elsewhere; F19.90 Other psychoactive substance use, unspecified, uncomplicated; F14.10 Cocaine abuse, uncomplicated; F17.210 Nicotine dependence, cigarettes, uncomplicated; E78.00 Pure hypercholesterolemia, unspecified; G89.29 Other chronic pain; Z99.2 Dependence on renal dialysis; Z59.0 Homelessness; Z87.828 Personal history of other (healed) physical injury and trauma; Z87.820 Personal history of traumatic brain injury; Z88.8 Allergy status to other drugs, medicaments and biological substances; Z79.899 Other long term (current) drug therapy; Z91.19 Patient's noncompliance with other medical treatment and regimen
CPT/HCPCS: 36415; 71045; 80048; 84484; 93005; 96365; 96366; 99285; J0885; J1200; J1953; J2270; J2405

== ENCOUNTER 2018-08-10 21:44 | Inpatient (IN) | payer MEDICAID ==
[~2018-08-10] VITALS: Ht 172.7 cm; Wt 76.2 kg
[2018-08-10] MEDS ORDERED: ASPIRIN 81MG TABLET PO ONE (22:00)
[2018-08-10] MEDS ORDERED: HYDRALAZINE 20MG/ML VIAL IV ONE ×2 (22:00→23:45)
[2018-08-10] MEDS ORDERED: CLONIDINE 0.2MG TABLET PO ONE (22:00)
[2018-08-10] MEDS ORDERED: MORPHINE SULFATE 2 MG/ML CPJ (NOT FOR IM USE) IV ONE (23:00)
[2018-08-10 23:29] LABS: BASOPHILS % 0.8 % (0.0-2.0); EOSINOPHILS % 1.5 % (0.0-5.0); HEMATOCRIT. 29.3 % (42.0-52.0); HEMOGLOBIN. 9.7 g/dL (14.0-18.0); LYMPHOCYTES % 7.3 % (20.0-50.0); MEAN CORPUSCULAR HEMOGLOBIN 27.7 pg (28.0-32.0); MEAN CORPUSCULAR VOLUME 83.5 fL (80.0-94.0); MEAN PLATELET VOLUME 6.7 fl (7.4-10.4); MONOCYTES % 11.6 % (2.0-8.0); NEUTROPHILS % 78.8 % (40.0-76.0); PLATELET 176 x1000/uL (130-400); RED CELL DISTRIBUTION WIDTH 19.9 % (11.6-14.6)
[2018-08-10 23:32] LABS: CHLORIDE 107 mEq/L (98-107)
[2018-08-10] MEDS ORDERED: CALCIUM GLUCONATE 100MG/ML 10ML VIAL IV ONE (23:45)
[2018-08-11] VITALS (9 sets, daily range): BP systolic 110–200; BP diastolic 64–157
[2018-08-11] MEDS: MORPHINE SULFATE 4 MG/ML CPJ (NOT FOR IM USE) IV SCH ×2 (01:08→02:47)
[2018-08-11] MEDS: HYDROCODONE/ACETAMINOPHEN 5/325MG TABLET PO PRN ×2 (01:10→09:26)
[2018-08-11] MEDS ORDERED: MORPHINE SULFATE 4 MG/ML CPJ (NOT FOR IM USE) IV PRN (06:00)
[2018-08-11] MEDS ORDERED: SODIUM POLYSTYRENE SULFONATE 15 G/60 ML BOT PO NR (08:00)
[2018-08-11 08:50] LABS: BASOPHILS % 0.7 % (0.0-2.0); EOSINOPHILS % 1.6 % (0.0-5.0); HEMOGLOBIN. 9.1 g/dL (14.0-18.0); LYMPHOCYTES % 10.9 % (20.0-50.0); MEAN CORPUSCULAR HEMOGLOBIN 27.3 pg (28.0-32.0); MEAN CORPUSCULAR VOLUME 84.4 fL (80.0-94.0); MEAN PLATELET VOLUME 7.4 fl (7.4-10.4); MONOCYTES % 12.2 % (2.0-8.0); NEUTROPHILS % 74.6 % (40.0-76.0); PLATELET 169 x1000/uL (130-400); RED BLOOD CELL COUNT 3.32 mill/uL (4.7-6.1); RED CELL DISTRIBUTION WIDTH 20.4 % (11.6-14.6)
[2018-08-11] MEDS ORDERED: DILTIAZEM HCL 120MG CAPSULE CD 24HR PO SCH (09:00)
[2018-08-11] MEDS: SEVELAMER CARBONATE 800 MG TABLET PO SCH ×3 (09:09→17:37)
[2018-08-11] MEDS: CLONIDINE 0.3MG TABLET PO SCH ×3 (09:10→22:00)
[2018-08-11] MEDS: HYDRALAZINE HCL 100MG TABLET PO SCH ×3 (09:10→22:00)
[2018-08-11] MEDS: LEVETIRACETAM 500MG TABLET PO SCH (09:11)
[2018-08-11] MEDS: LOSARTAN POTASSIUM 100 MG TABLET PO SCH (09:11)
[2018-08-11] MEDS: MINOXIDIL 10MG TABLET PO SCH (09:14)
[2018-08-11] MEDS: FUROSEMIDE 100MG/10ML VIAL IVP SCH ×2 (09:15→17:37)
[2018-08-11] MEDS: AMLODIPINE 10MG TABLET PO SCH (09:15)
[2018-08-11] MEDS: DIPHENHYDRAMINE 50MG CAPSULE PO PRN (09:17)
[2018-08-11] MEDS ORDERED: CLONIDINE HCL 0.1MG/24HR PATCH TD SCH (10:00)
[2018-08-11] MEDS ORDERED: LABETALOL 5MG/ML SYR 20 MG/4 ML SYRINGE IV ONE (11:00)
[2018-08-11] MEDS ORDERED: LABETALOL 5MG/ML SYR 20 MG/4 ML SYRINGE IV NR (12:30)
[2018-08-11] MEDS: AZITHROMYCIN 500 MG TABLET PO SCH (15:52)
[2018-08-11] MEDS: CEFTRIAXONE 1 G PREMIX 50 ML IV SCH (17:37)
[2018-08-11] MEDS ORDERED: ZOLPIDEM TARTRATE 5MG TABLET PO PRN (21:00)
[2018-08-12] VITALS (14 sets, daily range): BP systolic 89–149; BP diastolic 41–88
[2018-08-12] MEDS: LEVETIRACETAM 500MG TABLET PO SCH ×3 (02:00→21:37)
[2018-08-12] MEDS: FAMOTIDINE 20MG TABLET PO SCH ×2 (02:00→21:38)
[2018-08-12] MEDS: CLONIDINE 0.3MG TABLET PO SCH ×3 (06:09→21:27)
[2018-08-12] MEDS: HYDRALAZINE HCL 100MG TABLET PO SCH ×3 (06:09→21:26)
[2018-08-12] MEDS: FUROSEMIDE 100MG/10ML VIAL IVP SCH ×2 (06:15→19:32)
[2018-08-12] MEDS: SEVELAMER CARBONATE 800 MG TABLET PO SCH ×3 (07:20→19:32)
[2018-08-12 07:25] LABS: HEMATOCRIT. 28.6 % (42.0-52.0); HEMOGLOBIN. 9.5 g/dL (14.0-18.0); MEAN CORPUSCULAR HEMOGLOBIN 27.7 pg (28.0-32.0); MEAN CORPUSCULAR VOLUME 83.2 fL (80.0-94.0); MEAN PLATELET VOLUME 6.7 fl (7.4-10.4); PLATELET 149 x1000/uL (130-400); RED BLOOD CELL COUNT 3.44 mill/uL (4.7-6.1); RED CELL DISTRIBUTION WIDTH 19.8 % (11.6-14.6)
[2018-08-12] MEDS: AZITHROMYCIN 500 MG TABLET PO SCH (08:37)
[2018-08-12] MEDS: LOSARTAN POTASSIUM 100 MG TABLET PO SCH (08:42)
[2018-08-12] MEDS: AMLODIPINE 10MG TABLET PO SCH (08:42)
[2018-08-12] MEDS: MINOXIDIL 10MG TABLET PO SCH (08:43)
[2018-08-12 10:28] LABS: PLATELET ESTIMATE NORMAL
[2018-08-12] MEDS: CEFTRIAXONE 1 G PREMIX 50 ML IV SCH (18:00)
[2018-08-13] VITALS (9 sets, daily range): BP systolic 93–135; BP diastolic 37–82
[2018-08-13] MEDS: HYDROCODONE/ACETAMINOPHEN 5/325MG TABLET PO PRN ×2 (03:15→11:13)
[2018-08-13] MEDS: DIPHENHYDRAMINE 50MG CAPSULE PO PRN ×2 (03:16→11:12)
[2018-08-13] MEDS: CLONIDINE 0.3MG TABLET PO SCH ×2 (06:00→13:32)
[2018-08-13] MEDS: HYDRALAZINE HCL 100MG TABLET PO SCH ×2 (06:00→13:32)
[2018-08-13] MEDS: SEVELAMER CARBONATE 800 MG TABLET PO SCH ×3 (06:30→12:31)
[2018-08-13] MEDS: FUROSEMIDE 100MG/10ML VIAL IVP SCH (06:30)
[2018-08-13 07:37] LABS: HEMATOCRIT. 29.6 % (42.0-52.0); HEMOGLOBIN. 9.7 g/dL (14.0-18.0); MEAN CORPUSCULAR HEMOGLOBIN 27.2 pg (28.0-32.0); MEAN CORPUSCULAR VOLUME 83.3 fL (80.0-94.0); MEAN PLATELET VOLUME 7.1 fl (7.4-10.4); PLATELET 150 x1000/uL (130-400); RED BLOOD CELL COUNT 3.55 mill/uL (4.7-6.1); RED CELL DISTRIBUTION WIDTH 19.1 % (11.6-14.6)
[2018-08-13 08:36] LABS: PHOSPHORUS 8.6 mg/dL (2.5-4.9)
[2018-08-13] MEDS: LEVETIRACETAM 500MG TABLET PO SCH (08:49)
[2018-08-13] MEDS: AZITHROMYCIN 500 MG TABLET PO SCH (08:49)
[2018-08-13] MEDS: MINOXIDIL 10MG TABLET PO SCH (08:58)
[2018-08-13] MEDS: LOSARTAN POTASSIUM 100 MG TABLET PO SCH (08:58)
[2018-08-13] MEDS: AMLODIPINE 10MG TABLET PO SCH (08:58)
[2018-08-13 10:29] LABS: PLATELET ESTIMATE NORMAL
== END 2018-08-13 15:50 | disposition home or self-care (01) | DRG 140 ==
LOC: ER 21:44 → 3WST 08-11 → EDBEDREQTM 08-11 00:06 → EDBEDREQDT 08-11 00:06 → EDBEDREQSVC 08-11 00:06 → EDBEDREQ 08-11 00:06 → ENRESERV 08-11 02:18
PROVIDERS: ADMIT Internal Medicine; ATTEND Internal Medicine
PROC: 5A1D70Z Performance of Urinary Filtration, Intermittent, Less than 6 Hours Per Day (ICD-10-PCS; 2018-08-11)
PROC: 5A1D70Z Performance of Urinary Filtration, Intermittent, Less than 6 Hours Per Day (ICD-10-PCS; principal; 2018-08-12)
DX: J44.0 Chronic obstructive pulmonary disease with (acute) lower respiratory infection (principal); J96.00 Acute respiratory failure, unspecified whether with hypoxia or hypercapnia; I13.2 Hypertensive heart and chronic kidney disease with heart failure and with stage 5 chronic kidney disease, or end stage renal disease; J18.9 Pneumonia, unspecified organism; I27.20 Pulmonary hypertension, unspecified; N18.6 End stage renal disease; E87.1 Hypo-osmolality and hyponatremia; E87.5 Hyperkalemia; D63.8 Anemia in other chronic diseases classified elsewhere; E78.00 Pure hypercholesterolemia, unspecified; E78.5 Hyperlipidemia, unspecified; F14.10 Cocaine abuse, uncomplicated; F17.210 Nicotine dependence, cigarettes, uncomplicated; G40.909 Epilepsy, unspecified, not intractable, without status epilepticus; I16.1 Hypertensive emergency; I50.33 Acute on chronic diastolic (congestive) heart failure; Z91.15 Patient's noncompliance with renal dialysis; Z99.2 Dependence on renal dialysis; Z88.8 Allergy status to other drugs, medicaments and biological substances; Z71.6 Tobacco abuse counseling
CPT/HCPCS: 36415; 71045; 80048; 83735; 84100; 84484; 93005; 96374; 96375; 99291; J0360; J0610; J0696; J1940; J2270; J3490; J7050; Q0163